=== PATIENT | female | born 1945 | race Caucasian/White ===

== ENCOUNTER → 2017-09-03 13:16 | Outpatient (CLI) | payer MEDICARE, MEDICAID, SELFPAY ==
[2017-09-03 14:20] LABS: Absolute Lymphocyte Count 1.74 X10^3/ul (0.83-4.51); Absolute Neutrophil Count 4.2 X10^3/uL (2.0-7.7); Basophil# 0.03 X10^3/uL; Basophil% 0.4 % (0-1); Eosinophil# 0.33 X10^3/uL; Eosinophils% 4.6 % (0-5); Hematocrit 44.2 % (37-47); Hemoglobin 13.9 g/dl (12.0-15.0); Lymphocyte # 1.74 X10^3/ul (4.0); Lymphocyte % 24.2 % (19-41); Mean Corp Hgb Conc 31.4 g/gl (32-36); Mean Corpuscular Hgb 28.3 pg (27.0-32.0); Mean Corpuscular Volume 89.8 fL (81-99); Mean Platelet Vol. 11.7 fl (6.2-12.0); Monocyte# 0.88 X10^3/uL; Monocyte% 12.2 % (0-10); Neutrophil # 4.18 X10^3/uL (2.7-7.7); Neutrophil % 58.2 % (47-70); POSITIVE COUNT NO; POSITIVE DIFFERENTIAL NO; POSITIVE MORPHOLOGY NO; Platelet Count 243 K/mm3 (150-450); RBC Distribution Width CV 15.4 % (11.6-14.6); RBC Distribution Width SD 49.4 fl (35.1-43.9); Red Blood Count 4.92 M/mm3 (4.2-5.4); White Blood Count 7.2 K/mm3 (4.4-11.0)
[2017-09-03 14:34] LABS: AST(SGOT) 35 U/L (15-37); Alanine Aminotransfer ALT/SGPT 36 U/L (12-78); Albumin, Serum 3.5 g/dL (3.4-5.0); Alkaline Phosphatase 110 U/L (45-117); Anion Gap 7 (5-15); BUN 30 mg/dL (7-18); BUN/Creat Ratio 34.1 RATIO (10-20); Calcium,Total 9.2 mg/dL (8.5-10.1); Chloride 108 mmol/L (98-107); Creatinine, Serum 0.88 mg/dL (0.55-1.02); EST Glomerular Filtration Rate 67 mL/min (>60); Est Glom Filt Rate - Afr Amer 81 mL/min (>60); Globulin 3.4 g/dL (2.2-4.2); Glucose 72 mg/dL (70-110); Potassium 4.5 mmol/L (3.5-5.1); Protein, Total 6.9 g/dL (6.4-8.2); Sodium Level 146 mmol/L (136-145)
[2017-09-04 09:39] LABS: Vitamin D,25 Hydroxy 19.7 ng/mL
== END ==
PROVIDERS: Family Provider Family Medicine Geriatric Medicine; PCP Family Medicine Geriatric Medicine; Visit Provider Family Medicine Geriatric Medicine
DX: R53.83 Other fatigue (principal)
CPT/HCPCS: 36415; 80053; 82306; 84443; 85025

== ENCOUNTER → 2017-11-14 13:20 | Outpatient (CLI) | payer MEDICARE, MEDICAID, SELFPAY ==
--- NOTE | 2017-11-14 13:24 | RAD_ITS ---
STUDY: X-RAY - ABDOMEN/PELVIS REASON FOR EXAM: Female, 72 years old. Abdominal pain and diarrhea. TECHNIQUE: AP supine and upright views of the abdomen and pelvis. COMPARISON: None. FINDINGS: Elevated left diaphragm. Substantial gaseous distention of the stomach. Nondistended small bowel. Diffuse nonspecific increase in colonic bowel gas to the level of the rectum. No substantial stool. Negative for gross organomegaly. Status post cholecystectomy. Normal soft tissue structures. There are diffuse degenerative changes of the visualized lumbar spine. RAD/Abd Inc Decub and/or Erect IMPRESSION: Air distended stomach. Nondistended small bowel. Diffuse gassy colon to the level of the rectum without visible stool. Findings are consistent with diarrhea but do not suggest a specific etiology. Negative for evidence of bowel perforation. Elevation of left diaphragm. Status post cholecystectomy. Electronically Signed: Summer Benton MD at 21:29 EST , Service support ,
== END ==
PROVIDERS: Family Provider Family Medicine Geriatric Medicine; PCP Family Medicine Geriatric Medicine; Visit Provider Family Medicine Geriatric Medicine
DX: R50.9 Fever, unspecified (principal)
CPT/HCPCS: 74019; 87633

== ENCOUNTER → 2017-11-18 09:19 | Outpatient (CLI) | payer MEDICARE, MEDICAID, SELFPAY ==
[2017-11-18 09:27] LABS: Bacteria 0 SEEN /hpf (None Seen); Mucous, Urine 0 SEEN /hpf (<or=2+); Red Blood Cells-Urine 0 SEEN /hpf (0-5); White Blood Cells 0 SEEN /hpf (0-5)
[2017-11-18 09:38] LABS: Color, Urine Yellow (Yellow); Glucose, Dipstick Normal (Normal); Ketone-Dipstick Negative (Negative); Leukocyte Esterase-Dipstick Negative /ul (Negative); Nitrite-Dipstick Negative (Negative); Occult Blood-Urine Negative /ul (Negative); Protein-Dipstick Negative (Negative); Urine Bilirubin Dipstick Negative (Negative); Urine Clarity Clear (Clear); Urine Urobilinogen Normal (Normal)
[2017-11-18 09:44] LABS: Squamous Epithelial Cells - UA 0-5 SEEN /hpf (5-10)
== END ==
LOC: LAB 09:21 → LABSPEC 09:24
PROVIDERS: Family Provider Family Medicine Geriatric Medicine; PCP Family Medicine Geriatric Medicine; Visit Provider Family Medicine Geriatric Medicine
DX: N39.0 Urinary tract infection, site not specified (principal)
CPT/HCPCS: 81001; 87086; 87088

== ENCOUNTER → 2017-11-30 11:03 | Outpatient (CLI) | payer MEDICARE, MEDICAID, SELFPAY | PROVIDERS: Family Provider Family Medicine Geriatric Medicine; PCP Family Medicine Geriatric Medicine; Visit Provider Family Medicine Geriatric Medicine | DX: R19.7 Diarrhea, unspecified (principal) | CPT/HCPCS: 82274; 83630; 87177; 87209; 87493; 87506 ==

== ENCOUNTER → 2018-02-21 10:43 | Outpatient (CLI) | payer MEDICARE, MEDICAID, SELFPAY ==
--- NOTE | 2018-02-21 11:05 | RAD_ITS ---
STUDY: X-RAY - ABDOMEN/PELVIS REASON FOR EXAM: Female, 72 years old. Diarrhea for 3 weeks. TECHNIQUE: AP supine and upright views of the abdomen and pelvis. COMPARISON: 11/14/2017 FINDINGS: Gas-filled bowel loops are again seen throughout the abdomen and pelvis. There is no evidence of bowel obstruction. There is no demonstrated free abdominal air. Persistently evaluated left hemidiaphragm. Cholecystectomy clips are seen in the right upper quadrant. Normal soft tissue structures. There are diffuse degenerative changes of the visualized lumbar spine. Bilateral degenerative hip arthrosis. RAD/Abd Inc Decub and/or Erect IMPRESSION: Gas-filled bowel loops seen throughout the abdomen/pelvis, compatible with mild adynamic ileus/diarrheal disease. Nonobstructive bowel gas pattern. Electronically Signed: Socrates Palm MD at 10:13 EDT Tel , Service support ,
== END ==
PROVIDERS: Family Provider Family Medicine Geriatric Medicine; PCP Family Medicine Geriatric Medicine; Visit Provider Family Medicine Geriatric Medicine
DX: R19.7 Diarrhea, unspecified (principal)
CPT/HCPCS: 74019

== ENCOUNTER → 2018-03-05 10:02 | Outpatient (CLI) | payer MEDICARE, MEDICAID, SELFPAY ==
[2018-03-05 11:22] LABS: Absolute Lymphocyte Count 1.94 X10^3/ul (0.83-4.51); Absolute Neutrophil Count 3.7 X10^3/uL (2.0-7.7); Basophil# 0.03 X10^3/uL; Basophil% 0.4 % (0-1); Eosinophil# 0.32 X10^3/uL; Eosinophils% 4.7 % (0-5); Hematocrit 42.1 % (37-47); Hemoglobin 13.2 g/dl (12.0-15.0); Lymphocyte # 1.94 X10^3/ul (4.0); Lymphocyte % 28.2 % (19-41); Mean Corp Hgb Conc 31.4 g/gl (32-36); Mean Corpuscular Hgb 29.3 pg (27.0-32.0); Mean Corpuscular Volume 93.6 fL (81-99); Mean Platelet Vol. 11.2 fl (6.2-12.0); Monocyte# 0.87 X10^3/uL; Monocyte% 12.6 % (0-10); Neutrophil % 53.8 % (47-70); Platelet Count 238 K/mm3 (150-450); RBC Distribution Width CV 14.2 % (11.6-14.6); RBC Distribution Width SD 46.6 fl (35.1-43.9); White Blood Count 6.9 K/mm3 (4.4-11.0)
[2018-03-05 11:39] LABS: POSITIVE COUNT NO; POSITIVE DIFFERENTIAL NO; POSITIVE MORPHOLOGY NO
[2018-03-05 11:41] LABS: Vitamin D,25 Hydroxy 18.6 ng/mL (29.95-100.01)
[2018-03-05 11:50] LABS: ALB/GLOB Ratio 1.1 RATIO (0.9-2.4); AST(SGOT) 22 U/L (15-37); Alanine Aminotransfer ALT/SGPT 34 U/L (13-56); Albumin, Serum 3.4 g/dL (3.2-5.0); Alkaline Phosphatase 75 U/L (45-117); Anion Gap 7 (5-15); BUN 22 mg/dL (7-18); BUN/Creat Ratio 27.8 RATIO (10-20); Calcium,Total 8.7 mg/dL (8.5-10.1); Chloride 108 mmol/L (98-107); Creatinine, Serum 0.79 mg/dL (0.55-1.02); EST Glomerular Filtration Rate 76 mL/min (>60); Est Glom Filt Rate - Afr Amer 92 mL/min (>60); Globulin 3.2 g/dL (2.2-4.2); Glucose 76 mg/dL (74-106); Potassium 4.6 mmol/L (3.5-5.1); Protein, Total 6.6 g/dL (6.4-8.2); Sodium Level 146 mmol/L (136-145); Thyroid Stim Hormone (TSH) 0.47 uIU/mL (0.358-3.74)
[2018-03-07 07:13] LABS: Hep C Antibodies <0.1 s/co ratio (0.0-0.9)
== END ==
PROVIDERS: Family Provider Family Medicine Geriatric Medicine; PCP Family Medicine Geriatric Medicine; Visit Provider Family Medicine Geriatric Medicine
DX: E55.9 Vitamin D deficiency, unspecified (principal); R53.83 Other fatigue; Z13.89 Encounter for screening for other disorder
CPT/HCPCS: 36415; 80053; 82306; 84443; 85025; 86803

== ENCOUNTER → 2018-06-10 14:11 | Outpatient (CLI) | payer MEDICARE, MEDICAID, SELFPAY ==
[2018-06-10 15:04] LABS: Absolute Lymphocyte Count 2.34 X10^3/ul (0.83-4.51); Absolute Neutrophil Count 3.5 X10^3/uL (2.0-7.7); Basophil# 0.06 X10^3/uL; Basophil% 0.8 % (0-1); Eosinophil# 0.48 X10^3/uL; Eosinophils% 6.4 % (0-5); Hematocrit 43.8 % (37-47); Hemoglobin 13.5 g/dl (12.0-15.0); Lymphocyte # 2.34 X10^3/ul (4.0); Mean Corp Hgb Conc 30.8 g/gl (32-36); Mean Corpuscular Hgb 28.8 pg (27.0-32.0); Mean Corpuscular Volume 93.4 fL (81-99); Monocyte# 1.16 X10^3/uL; Monocyte% 15.4 % (0-10); Neutrophil % 46.3 % (47-70); Platelet Count 277 K/mm3 (150-450); RBC Distribution Width CV 14.2 % (11.6-14.6); RBC Distribution Width SD 47.8 fl (35.1-43.9); Red Blood Count 4.69 M/mm3 (4.2-5.4); White Blood Count 7.6 K/mm3 (4.4-11.0)
[2018-06-10 15:05] LABS: POSITIVE COUNT NO; POSITIVE DIFFERENTIAL NO; POSITIVE MORPHOLOGY NO
[2018-06-10 15:13] LABS: ALB/GLOB Ratio 1.1 RATIO (0.9-2.4); AST(SGOT) 20 U/L (15-37); Alanine Aminotransfer ALT/SGPT 22 U/L (13-56); Albumin, Serum 3.6 g/dL (3.2-5.0); Alkaline Phosphatase 95 U/L (45-117); Anion Gap 5 (5-15); BUN 22 mg/dL (7-18); BUN/Creat Ratio 24.4 RATIO (10-20); Chloride 108 mmol/L (98-107); EST Glomerular Filtration Rate 65 mL/min (>60); Est Glom Filt Rate - Afr Amer 79 mL/min (>60); Globulin 3.2 g/dL (2.2-4.2); Glucose 76 mg/dL (74-106); Potassium 4.1 mmol/L (3.5-5.1); Protein, Total 6.8 g/dL (6.4-8.2); Sodium Level 144 mmol/L (136-145)
--- NOTE | 2018-06-10 16:52 | CT_ITS ---
STUDY: CT ABDOMEN AND PELVIS WITH CONTRAST REASON FOR EXAM: Female, 72 years old. Abdominal pain, rectal bleeding RADIATION DOSAGE (If Supplied By Facility): CTDIvol = ( 14.71 ) mGy, DLP = ( 684.37 ) mGycm TECHNIQUE: Transaxial images were obtained from the dome of the diaphragm to the symphysis pubis without oral contrast. 100CC ml of Isovue 300 contrast was administered. Sagittal and coronal images were reconstructed. Individualized dose optimization techniques were used for this CT. COMPARISON: None. FINDINGS: Calcified granuloma in the right lung base. The visualized portions of the heart are within normal limits. Normal liver. Status post cholecystectomy. Mild dilatation of the extrahepatic biliary system. Normal spleen. Normal pancreas. Normal bilateral adrenal glands. Normal right kidney. Normal left kidney. Distend stomach with air-fluid level. Normal small intestine. Fecal distended rectum. The appendix is not visualized. Normal abdominal aorta. Normal inferior vena cava. Normal retroperitoneum. Normal urinary bladder. Normal abdominal wall. Degenerative vertebral changes. CT/Abdomen/Pelvis WITH Contrast IMPRESSION: Distended stomach with air-fluid level. Fecal distended rectum. Electronically Signed: Terry Tellez DO at 21:39 EDT Tel [phone], Service support ,
== END ==
PROVIDERS: Family Provider Family Medicine Geriatric Medicine; PCP Family Medicine Geriatric Medicine; Visit Provider Family Medicine Geriatric Medicine
DX: R10.9 Unspecified abdominal pain (principal); R50.9 Fever, unspecified
CPT/HCPCS: 36415; 74177; 80053; 85025; 87633; Q9967

== ENCOUNTER → 2018-06-11 12:14 | Outpatient (CLI) | payer MEDICARE, MEDICAID, SELFPAY | PROVIDERS: Family Provider Family Medicine Geriatric Medicine; PCP Family Medicine Geriatric Medicine; Visit Provider Family Medicine Geriatric Medicine | DX: R19.7 Diarrhea, unspecified (principal) | CPT/HCPCS: 82274; 83630; 87177; 87209; 87493; 87506 ==

== ENCOUNTER 2018-07-18 21:46 | Emergency (ER) | payer MEDICARE, MEDICAID, SELFPAY ==
[2018-07-18 21:48] VITALS: BP 110/76; PULSE 82; RESP 18; TEMP 36.7; O2SAT 94; O2SAT 97; BMI 23.2
--- NOTE | 2018-07-18 22:18 | RAD_ITS ---
STUDY: X-RAY CHEST REASON FOR EXAM: Female, 73 years old. Hypertension. Lethargy. TECHNIQUE: PA and lateral views of the chest. COMPARISON: August 24, 2016. FINDINGS: Telemetry wires overlie the chest. There is persistent elevation left hemidiaphragm with left basilar atelectasis. There is no new mass or infiltrate in the lungs There is no demonstrated pleural abnormality. Normal size heart. Normal mediastinum and ester. Normal visualized pulmonary arteries. Normal visualized aortic arch and descending thoracic aorta. There are diffuse degenerative changes of the visualized thoracic spine. There is degenerative osteoarthritis of the bilateral shoulders. There is air in loops of small bowel and colon beneath the diaphragms. RAD/Chest PA and Lateral IMPRESSION: No acute cardiopulmonary disease or major interval change. Electronically Signed: Rodney Mosley DO at 22:45 EDT Tel [phone], Service support ,
[2018-07-18 22:25] LABS: Absolute Lymphocyte Count 1.37 X10^3/ul (0.83-4.51); Absolute Neutrophil Count 11.4 X10^3/uL (2.0-7.7); Basophil# 0.03 X10^3/uL; Basophil% 0.2 % (0-1); Differential Indicated SCAN CRITERIA MET; Eosinophil# 0.29 X10^3/uL; Eosinophils% 1.9 % (0-5); Hematocrit 35.5 % (37-47); Hemoglobin 10.8 g/dl (12.0-15.0); Lymphocyte # 1.37 X10^3/ul (4.0); Lymphocyte % 9.1 % (19-41); Mean Corp Hgb Conc 30.4 g/gl (32-36); Mean Corpuscular Hgb 28.7 pg (27.0-32.0); Mean Corpuscular Volume 94.4 fL (81-99); Mean Platelet Vol. 10.6 fl (6.2-12.0); Monocyte# 1.84 X10^3/uL; Monocyte% 12.3 % (0-10); Neutrophil # 11.44 X10^3/uL (2.7-7.7); Neutrophil % 76.4 % (47-70); POSITIVE COUNT NO; POSITIVE DIFFERENTIAL YES; POSITIVE MORPHOLOGY NO; Platelet Count 202 K/mm3 (150-450); RBC Distribution Width CV 14.3 % (11.6-14.6); RBC Distribution Width SD 48.8 fl (35.1-43.9); Red Blood Count 3.76 M/mm3 (4.2-5.4)
[2018-07-18 22:43] LABS: Anion Gap 4 (5-15); BUN 35 mg/dL (7-18); BUN/Creat Ratio 32.4 RATIO (10-20); Calcium,Total 8.9 mg/dL (8.5-10.1); Chloride 111 mmol/L (98-107); Creatinine, Serum 1.08 mg/dL (0.55-1.02); EST Glomerular Filtration Rate 53 mL/min (>60); Est Glom Filt Rate - Afr Amer 64 mL/min (>60); Estimated Creatinine Clearance 33.82 ml/min; Glucose 113 mg/dL (74-106); Sodium Level 146 mmol/L (136-145)
[2018-07-18 23:12] LABS: Anisocytosis RARE; Macrocytosis RARE; Platelet Estimate ADEQUATE (ADEQ)
--- NOTE | 2018-07-18 23:40 | ED.VISSUMM ---
- ER Visit Summary Date of Service: 07/18/18 Chief Complaint: Low blood pressure at nursing facility History of Present Illness: The patient is a 73 F who is not a good informant secondary to the cerebral palsy and cognitive impairment was sent to the emergency department for low blood pressure. Systolic in the 80s. Normal blood pressure is 102-110 systolic. She reports cough and abdominal pain. Caregiver states she has had abdominal pain and reason for EGD. Caregiver informed me that EGD was positive for ulcers. The caregiver informed the nursing staff that she had black stool. When I inquired regarding black or maroon stool the response was negative. Past medical history of hypothyroidism, depression and cerebral palsy with cognitive impairment Physical Examination: Vital signs normal for patient. Blood pressure 110/76. She is not febrile. Head is atraumatic no cephalic. Pupils equal round reactive. Extra muscle intact. Sclerae anicteric. Conjunctive is pink. TMs normal. Mucosa slightly dry. Trachea midline. No cervical lymphadenopathy. No carotid bruit. Heart regular without murmur, gallop or rub. Lungs are clear to auscultation. Abdomen soft with epigastric discomfort. Negative Peter sign. There is no guarding or rebound tenderness. Rectal exam is remarkable for external hemorrhoid with no active bleeding. Stool is dark green to black. It is not melena. 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 Test Results: H&H 10.8 35.5. Approximately 2 months ago hemoglobin was 13.5. BUN to creatinine ratio is slightly elevated. Stool is Hemoccult negative. Emergency Department Course and Treatment: IV fluids. Workup for anemia, basic minimal panel was obtained to assess BUN to creatinine ratio because of concern for GI bleed. Treatment Plan: Follow-up with PCP as outpatient Disposition: Discharged to nursing facility Impression: 1. Transient hypotension 2. Epigastric pain secondary to recently diagnosed ulcer 3. Anemia secondary to recent GI bleed 4. Prerenal azotemia/dehydration This note was generated with [email or web address] dictation software. It may contain incorrect words, spelling, and punctuation that were not noted in review of the chart prior to signing ED Disposition - Plan for ED Patient: Disposition: Home or Assisted Living Chief Complaint: Hypotension Instructions: ED PUD, ED Dehydration Referrals: Giovany Peacock Chi, MD [Primary Care Provider] - 3-5 Days
[2018-07-19 00:20] VITALS: BP 122/69; PULSE 80; RESP 18; O2SAT 94
--- NOTE | 2018-07-19 00:23 | ED.RN ---
discharge instructions reviewed with caregiver, denies questions. Pt assisted into wheelchair, wheeled out to car of caregiver.
[2018-07-21 15:15] LABS: Pathologist Review Reviewed
== END 2018-07-19 00:25 | disposition home or self-care (01) ==
PROVIDERS: Emergency Provider Emergency Medicine; Family Provider Family Medicine Geriatric Medicine; PCP Family Medicine Geriatric Medicine
DX: I95.9 Hypotension, unspecified (principal); R10.13 Epigastric pain; K27.9 Peptic ulcer, site unspecified, unspecified as acute or chronic, without hemorrhage or perforation; D64.9 Anemia, unspecified; Z87.19 Personal history of other diseases of the digestive system; R79.89 Other specified abnormal findings of blood chemistry; E86.0 Dehydration; E87.0 Hyperosmolality and hypernatremia; K64.4 Residual hemorrhoidal skin tags; R05 Cough; G80.1 Spastic diplegic cerebral palsy; G31.84 Mild cognitive impairment of uncertain or unknown etiology; E03.9 Hypothyroidism, unspecified; F32.9 Major depressive disorder, single episode, unspecified; Z79.82 Long term (current) use of aspirin; Z79.899 Other long term (current) drug therapy
CPT/HCPCS: 71046; 80048; 82274; 85025; 99285; J7030; J7040; A4216

== ENCOUNTER → 2018-08-05 12:05 | Outpatient (CLI) | payer MEDICARE, MEDICAID, SELFPAY ==
[2018-08-05 12:42] LABS: Absolute Lymphocyte Count 1.96 X10^3/ul (0.83-4.51); Absolute Neutrophil Count 3.9 X10^3/uL (2.0-7.7); Basophil# 0.05 X10^3/uL; Basophil% 0.7 % (0-1); Eosinophil# 0.67 X10^3/uL; Eosinophils% 8.9 % (0-5); Hematocrit 35.5 % (37-47); Hemoglobin 10.8 g/dl (12.0-15.0); Lymphocyte # 1.96 X10^3/ul (4.0); Lymphocyte % 26.1 % (19-41); Mean Corp Hgb Conc 30.4 g/gl (32-36); Mean Corpuscular Volume 95.2 fL (81-99); Monocyte# 0.97 X10^3/uL; Monocyte% 12.9 % (0-10); Neutrophil # 3.85 X10^3/uL (2.7-7.7); Neutrophil % 51.3 % (47-70); Platelet Count 302 K/mm3 (150-450); RBC Distribution Width CV 14.7 % (11.6-14.6); RBC Distribution Width SD 48.9 fl (35.1-43.9); Red Blood Count 3.73 M/mm3 (4.2-5.4); White Blood Count 7.5 K/mm3 (4.4-11.0)
[2018-08-05 12:46] LABS: POSITIVE COUNT NO; POSITIVE DIFFERENTIAL NO; POSITIVE MORPHOLOGY NO
[2018-08-05 13:21] LABS: Anion Gap 7 (5-15); BUN 27 mg/dL (7-18); Calcium,Total 9.1 mg/dL (8.5-10.1); Chloride 105 mmol/L (98-107); Creatinine, Serum 0.96 mg/dL (0.55-1.02); EST Glomerular Filtration Rate 61 mL/min (>60); Est Glom Filt Rate - Afr Amer 73 mL/min (>60); Glucose 72 mg/dL (74-106); Potassium 4.7 mmol/L (3.5-5.1); Sodium Level 142 mmol/L (136-145)
== END ==
PROVIDERS: Family Provider Family Medicine Geriatric Medicine; Visit Provider Family Medicine Geriatric Medicine
DX: R53.83 Other fatigue (principal)
CPT/HCPCS: 36415; 80048; 85025

== ENCOUNTER → 2018-09-03 14:22 | Outpatient (CLI) | payer MEDICARE, MEDICAID, SELFPAY ==
[2018-09-03 15:56] LABS: Absolute Lymphocyte Count 2.14 X10^3/ul (0.83-4.51); Absolute Neutrophil Count 6.9 X10^3/uL (2.0-7.7); Basophil# 0.04 X10^3/uL; Basophil% 0.4 % (0-1); Eosinophil# 0.42 X10^3/uL; Eosinophils% 4.1 % (0-5); Hematocrit 36.1 % (37-47); Hemoglobin 10.8 g/dl (12.0-15.0); Lymphocyte # 2.14 X10^3/ul (4.0); Lymphocyte % 20.7 % (19-41); Mean Corp Hgb Conc 29.9 g/gl (32-36); Mean Corpuscular Hgb 27.8 pg (27.0-32.0); Monocyte% 8.7 % (0-10); Neutrophil # 6.85 X10^3/uL (2.7-7.7); Platelet Count 302 K/mm3 (150-450); RBC Distribution Width SD 47.6 fl (35.1-43.9); Red Blood Count 3.88 M/mm3 (4.2-5.4); White Blood Count 10.4 K/mm3 (4.4-11.0)
[2018-09-03 16:14] LABS: POSITIVE COUNT NO; POSITIVE DIFFERENTIAL NO; POSITIVE MORPHOLOGY NO
[2018-09-03 16:18] LABS: Vitamin D,25 Hydroxy 40.5 ng/mL (29.95-100.01)
[2018-09-03 16:40] LABS: ALB/GLOB Ratio 1.1 RATIO (0.9-2.4); AST(SGOT) 83 U/L (15-37); Alanine Aminotransfer ALT/SGPT 200 U/L (13-56); Albumin, Serum 3.4 g/dL (3.2-5.0); Alkaline Phosphatase 213 U/L (45-117); Anion Gap 7 (5-15); BUN 27 mg/dL (7-18); Calcium,Total 8.7 mg/dL (8.5-10.1); Chloride 105 mmol/L (98-107); Creatinine, Serum 1.08 mg/dL (0.55-1.02); EST Glomerular Filtration Rate 53 mL/min (>60); Est Glom Filt Rate - Afr Amer 64 mL/min (>60); Globulin 3.2 g/dL (2.2-4.2); Glucose 72 mg/dL (74-106); Potassium 3.8 mmol/L (3.5-5.1); Protein, Total 6.6 g/dL (6.4-8.2); Sodium Level 142 mmol/L (136-145); Thyroid Stim Hormone (TSH) 0.23 uIU/mL (0.358-3.74)
[2018-09-04 10:44] LABS: T3 Uptake 41 % (30-39); T4 Free Direct 1.75 ng/dL (0.76-1.46)
--- OUTSIDE RECORDS SUMMARY | 2018-10-20 19:14 | XMS RPT_ITS ---
:1945 Author Organization OHIP Care Team Providers Name Role Phone Ayush, Giovany Chi Attending Unavailable Ayush, Giovany Chi Primary Care Unavailable Ayush, Giovany Chi Attending Unavailable Ayush, Giovany Chi Referring Unavailable Ayush, Giovany Chi Primary Care Unavailable Ayush, Giovany Chi Attending Unavailable Ayush, Giovany Chi Referring Unavailable Ayush, Giovany Chi Primary Care Unavailable Nurse, Surgery Attending Unavailable Ayush, Giovany Chi Referring Unavailable Ayush, Giovany Chi Attending Unavailable Ayush, Giovany Chi Referring Unavailable Ayush, Giovany Chi Primary Care Unavailable Ayush, Giovany Chi Attending Unavailable Ayush, Giovany Chi Primary Care Unavailable Ayush, Giovany Chi Attending Unavailable Ayush, Giovany Chi Primary Care Unavailable Ayush, Giovany Chi Primary Care Unavailable Gill, Jaswant Attending Unavailable Ayush, Giovany Chi Attending Unavailable Ayush, Giovany Chi Primary Care Unavailable Ayush, Giovany Chi Attending Unavailable Ayush, Giovany Chi Primary Care Unavailable Ayush, Giovany Chi Referring Unavailable Ayush, Giovany Chi Attending Unavailable Ayush, Giovany Chi Primary Care Unavailable Ayush, Giovany Chi Attending Unavailable Ayush, Giovany Chi Primary Care Unavailable DIONICIO ANGUIANO Referring Unavailable DIONICIO ANGUIANO Admitting Unavailable DIONICIO ANGUIANO Attending Unavailable David Roblero Attending Unavailable David Roblero Attending Unavailable PROBLEMS PROBLEMS DATE TYPE CONDITION / CODE ATTENDING STATUS SOURCE 09/01/2018 Admitting Unknown / [place], Active [facility] Medical diagnosis UNK(Unknown) David Hudd[place] [facility] Repository 07/15/2018 Active Abnormal findings DIONICIO ANGUIANO Active [facility] on diagnostic Clinic Other imaging of other [place] parts of digestive Repository tract / R93.3(ICD-10) 07/14/2018 Active Cerebral palsy, NA Active [facility] unspecified / Clinic Other G80.9(ICD-10) [place] Repository 07/14/2018 Active Essential (primary) NA Active [facility] hypertension / Clinic Other I10(ICD-10) [place] Repository 04/23/2007 Active Gastro-esophageal NA Active [facility] reflux disease Clinic Other without esophagitis [place] / K21.9(ICD-10) Repository 07/14/2018 Active Encounter for other NA Active [facility] preprocedural Clinic Other examination / [place] Z01.818(ICD-10) Repository 06/11/2018 Unknown R19.7 - Diarrhea, Ayush, Giovany Chi Active [facility] unspecified / Community R19.7(ICD-10) Hospital Repository 06/11/2018 Unknown R10.9 - Unspecified Ayush, Giovany Chi Active [place] abdominal pain / Community R10.9(ICD-10) Hospital Repository 03/25/2018 Unknown Z12.31 - Encounter Ayush, Giovany Chi Active [facility] for screening Community mammogram for Hospital malignant neoplasm Repository of breast / Z12.31(ICD-10) 03/05/2018 Unknown E55.9 - Vitamin D Ayush, Giovany Chi Active [facility] deficiency, Community unspecified / Hospital E55.9(ICD-10) Repository 03/05/2018 Unknown R53.83 - Other Ayush, Giovany Chi Active [place] fatigue / Community R53.83(ICD-10) Hospital Repository 03/05/2018 Unknown Z13.89 - Encounter AyushGiovany juarez Chi Active [facility] for screening for Community other disorder / Hospital Z13.89(ICD-10) Repository 11/18/2017 Unknown N39.0 - Urinary AyushGiovany juarez Chi Active [place] tract infection, Community site not specified Hospital / N39.0(ICD-10) Repository PROCEDURES PROCEDURES No Procedure Records FoundRESULTS RESULTS CBC W/DIFF, AUTOMATED Collected: 09/03/2018 Status: F Source: [place] 2:23 PM [facility] REPOS[facility] TYPE CODE TESTS RESULT OUT OF RANGE REFERENCE UNITS LAB L100.1000 4.4-11.0 K/mm3 Normal WBC 10.4 LAB L100.1200 4.2-5.4 M/mm3 Low RBC 3.88 LAB L100.1300 12.0-15.0 g/dl Low HGB 10.8 LAB L100.1400 37-47 % Low HCT 36.1 LAB L100.1500 81-99 fL Normal MCV 93.0 LAB L100.1600 27.0-32.0 pg Normal MCH 27.8 LAB L100.1700 32-36 g/gl Low MCHC 29.9 LAB L100.1810 11.6-14.6 % Normal RDW CV 14.0 LAB L100.1820 35.1-43.9 fl High RDW SD 47.6 LAB L100.1900 150-450 K/mm3 Normal PLT 302 LAB L100.2000 6.2-12.0 fl Normal MPV 11.0 LAB L100.2100 47-70 % Normal NEUT% 66.0 LAB L100.2200 19-41 % Normal LY% 20.7 LAB L100.2300 0-10 % Normal MONO% 8.7 LAB L100.2400 0-5 % Normal EO% 4.1 LAB L100.2500 0-1 % Normal BASO% 0.4 LAB L100.2550 0.0-0.9 % Normal IM GRAN % 0.100 Result Comment: IG% - Immature Granulocytes (promyelocytes, myelocytes and metamyelocytes) > 1% indicates that a LEFT SHIFT is Present. LAB L100.2620 2.0-7.7 X10 3/uL Normal Absolute Neut 6.9 LAB L100.2720 0.83-4.51 X10 3/ul Normal Absolute Lymph 2.14 Performed By: #### L100.0100 #### [facility] [address] [place], [address] VITAMIN D,25 HYDROXY Collected: 09/03/2018 Status: F Source: [place] 2:23 PM [facility] [place] TYPE CODE TESTS RESULT OUT OF RANGE REFERENCE UNITS LAB L506.1000 29.95-100.01 ng/mL Normal Vitamin D 40.5 25-OH Result Comment: Vitamin D 25(OH) Status Range Deficiency <20 ng/mL (50nmol/L) Insuffciency 20 - 30 ng/mL (50 - 75 nmol/L) Sufficiency 30 - 100 ng/mL (75 - 250 nmol/L) Toxicity >100 ng/mL (>250 nmol/L) Performed By: #### L506.1000 #### [facility] [address] [facility] [place], [address] COMPREHENSIVE METABOLIC Collected: 09/03/2018 Status: F Source: [facility] 2:23 PM [facility] [place] Order Comment: DR SANDOVAL ADDED [id number] FT4 TYPE CODE TESTS RESULT OUT OF RANGE REFERENCE UNITS LAB L501.0100 74-106 mg/dL Low GLU 72 Result Comment: Please note revised GLUCOSE reference range effective 2017. LAB L501.1000 7-18 mg/dL High BUN 27 LAB L501.1100 0.55-1.02 mg/dL High CREAT,SERUM 1.08 Result Comment: The validity of the calculated GFR AND GFRAA in patients over 70 years has not been determined. Clinical correlation is essential. LAB L501.1110 >60 mL/min Low EST GFR 53 Result Comment: Non- GFR Calc LAB L501.1115 >60 mL/min Normal EST GFR - AA 64 Result Comment: GFR Calc LAB L501.1300 10-20 RATIO High BUN/CRE 25.0 LAB L501.1500 6.4-8.2 g/dL T Normal PROT 6.6 LAB L501.1800 3.2-5.0 g/dL Normal ALB 3.4 LAB L501.1950 2.2-4.2 g/dL Normal GLOB 3.2 LAB L501.2000 0.9-2.4 RATIO Normal A/G 1.1 LAB L501.2200 8.5-10.1 mg/dL CA Normal 8.7 LAB L501.4100 15-37 U/L High AST 83 LAB L501.4305 45-117 U/L High ALK P 213 LAB L501.4405 13-56 U/L High ALT 200 LAB L501.4600 0.20-1.00 mg/dL T Normal BILI 0.50 LAB L501.5300 136-145 mmol/L NA Normal 142 LAB L501.5600 3.5-5.1 mmol/L K Normal 3.8 LAB L501.5900 98-107 mmol/L CL Normal 105 LAB L501.6100 21.0-32.0 mmol/L Normal CO2 30.0 LAB L501.6200 5-15 Normal GAP 7 Performed By: #### L500.4050, L501.9520, L501.9195, L506.0400 #### [facility] [address] [place], [place], [address] THYROID STIM HORMONE Collected: 09/03/2018 Status: F Source: [place] ([facility]) 2:23 PM [facility] [place] Order Comment: DR SANDOVAL ADDED [id number] FT4 TYPE CODE TESTS RESULT OUT OF RANGE REFERENCE UNITS LAB L501.9520 0.358-3.74 uIU/mL Low TSH 0.23 Performed By: #### L500.4050, L501.9520, L501.9195, L506.0400 #### [facility] [address] [place], [place], [address] T3 UPTAKE Collected: 09/03/2018 Status: F Source: [place] 2:23 PM [facility] [place] Order Comment: DR SANDOVAL ADDED [id number] FT4 TYPE CODE TESTS RESULT OUT OF RANGE REFERENCE UNITS LAB L501.9410 1.4-4.5 Test Normal T7 (FTI) not performed LAB L501.9210 30-39 % High 41 T3 UPTAKE Performed By: #### L500.4050, L501.9520, L501.9195, L506.0400 #### [facility] [address] [facility] [place], [address] T4 FREE DIRECT Collected: 09/03/2018 Status: F Source: [place] 2:23 PM [facility] [place] Order Comment: DR SANDOVAL ADDED [id number] FT4 TYPE CODE TESTS RESULT OUT OF REFERENCE UNITS RANGE LAB L506.0400 0.76-1.46 ng/dL High T4 FREE 1.75 DIRECT Performed By: #### L500.4050, L501.9520, L501.9195, L506.0400 #### [facility] [address] [facility] [place], [address] OR Observed: 09/01/2018 Status: UNK Source: [facility] 11:46 AM [facility] REPOSITORY DATE OF SERVICE: 09/01/2018 PREOPERATIVE DIAGNOSES: 1. Suspected dental caries. 2. Periodontal disease. POSTOPERATIVE DIAGNOSES: 1. Chronic generalized moderate periodontitis. 2. Dental caries. OPERATION: 1. Full mouth exam. Full mouth series radiographs. 2. Oral surgery, extracted numbers 8, 9 and 10. 3. Prophy and fluoride. SURGEONS: 1. David Roblero DMD, attending. 2. Nain Retana DDS, resident. BRASS POLISHER ANESTHESIOLOGIST: Deyvi Monge DO CIRCULATING NURSE: Jennifer; PRATEEK; Sayra; scrub nurse, Estrada. ANESTHESIA: General anesthesia via orotracheal intubation. PREOPERATIVE MEDICATION: None. ESTIMATED BLOOD LOSS: 20 mL. FLUIDS: 800 mL lactated Ringers. COMPLICATIONS: None. POSTOPERATIVE CONDITION: Stable. Patient extubated in operating room and taken to post-anesthesia care unit in good condition. INDICATIONS: It was deemed necessary for this patient to be seen in the hospital operating room due to patient's developmental disability and inability to cooperate for care in a traditional dental environment. DESCRIPTION OF OPERATION: The patient was taken to the operating room, then, prepped and draped in the usual [facility] fashion. Following the timeout procedure, orotracheal intubation for general anesthesia was achieved. Clinical and radiographic examinations were performed and interpreted. Generalized chronic moderate periodontitis. A small fibroma was noted on the lower left lip, 4 mm x 1.5 [facility]IENT NAME: SHADI GARDUNO [facility] Dr. Cifuentes MEDICAL REC #: [id number] [place] [address] ADMIT DATE: DISCHARGE DATE: OPERATIVE REPORT ATTENDING PHY: David Roblero DMD mm, and abrasion to the lower lip from sharp tooth was noted near tooth number 10. A treatment plan was generated. Following the sterile preparation by the surgical team and surgical site, a moist throat pack was placed at 1:32 p.m. and removed at 3:00 p.m. The oral cavity was then brushed with 0.17% chlorhexidine gluconate, Prophy with Cavitron and hand instrument, polished with Prophy Paste and applied fluoride. Local anesthesia was achieved using 3.4 mL of 2% lidocaine, 1:100,000 epinephrine via maxillary anterior infiltration. Teeth numbers 8, 9 and 10 were extracted using elevator and forceps. Hemostasis achieved. Gelfoam was packed in the socket and 3.0 Vicryl suture was placed. The oral cavity was lavaged and a throat pack was removed with cotton pliers. The patient was taken to the PACU in good condition and written postoperative instructions were given to the legal guardian. MEDICATIONS PRESCRIBED: 1. Denta 5000 at 51 g. 2. Motrin 600 mg, 20 tablets every 6 hours for pain. PATIENT RECOMMENDATIONS: Return in 1-2 years for followup recall. Nain Retana DDS, (R), dictating for ROSALINA Mcgrath/[id number] SSI File#: [id number] Verified/Reviewed by 09/04/18 0843 MECHELLE [facility] PATIENT NAME: SHADI GARDUNO Dr. Cifuentes MEDICAL REC #: [id number] [place] [address] ADMIT DATE: DISCHARGE DATE: OPERATIVE REPORT ATTENDING PHY: David Roblero DMD CBC W/DIFF, AUTOMATED Collected: 08/05/2018 Status: F Source: [place] 12:09 PM [facility] [place] TYPE CODE TESTS RESULT OUT OF RANGE REFERENCE UNITS LAB L100.1000 4.4-11.0 K/mm3 Normal WBC 7.5 LAB L100.1200 4.2-5.4 M/mm3 Low RBC 3.73 LAB L100.1300 12.0-15.0 g/dl Low HGB 10.8 LAB L100.1400 37-47 % Low HCT 35.5 LAB L100.1500 81-99 fL Normal MCV 95.2 LAB L100.1600 27.0-32.0 pg Normal MCH 29.0 LAB L100.1700 32-36 g/gl Low MCHC 30.4 LAB L100.1810 11.6-14.6 % High RDW CV 14.7 LAB L100.1820 35.1-43.9 fl High RDW SD 48.9 LAB L100.1900 150-450 K/mm3 Normal PLT 302 LAB L100.2000 6.2-12.0 fl Normal MPV 11.0 LAB L100.2100 47-70 % Normal NEUT% 51.3 LAB L100.2200 19-41 % Normal LY% 26.1 LAB L100.2300 0-10 % High MONO% 12.9 LAB L100.2400 0-5 % High EO% 8.9 LAB L100.2500 0-1 % Normal BASO% 0.7 LAB L100.2550 0.0-0.9 % Normal IM GRAN % 0.100 Result Comment: IG% - Immature Granulocytes (promyelocytes, myelocytes and metamyelocytes) > 1% indicates that a LEFT SHIFT is Present. LAB L100.2620 2.0-7.7 X10 3/uL Normal Absolute Neut 3.9 LAB L100.2720 0.83-4.51 X10 3/ul Normal Absolute Lymph 1.96 Performed By: #### L100.0100 #### [facility] [address] [place], [address] BASIC METABOLIC Collected: 08/05/2018 Status: F Source: [place] PROFILE (BMP) 12:09 PM [facility] [place] TYPE CODE TESTS RESULT OUT OF RANGE REFERENCE UNITS LAB L501.0100 74-106 mg/dL Low GLU 72 Result Comment: Please note revised GLUCOSE reference range effective 2017. LAB L501.1000 7-18 mg/dL High BUN 27 LAB L501.1100 0.55-1.02 mg/dL Normal CREAT,SERUM 0.96 Result Comment: The validity of the calculated GFR AND GFRAA in patients over 70 years has not been determined. Clinical correlation is essential. LAB L501.1110 >60 mL/min Normal EST GFR 61 Result Comment: Non- GFR Calc LAB L501.1115 >60 mL/min Normal EST GFR - AA 73 Result Comment: GFR Calc LAB L501.1300 10-20 RATIO High BUN/CRE 28.0 LAB L501.2200 8.5-10.1 mg/dL CA Normal 9.1 LAB L501.5300 136-145 mmol/L NA Normal 142 LAB L501.5600 3.5-5.1 mmol/L K Normal 4.7 LAB L501.5900 98-107 mmol/L CL Normal 105 LAB L501.6100 21.0-32.0 mmol/L Normal CO2 30.0 LAB L501.6200 5-15 Normal GAP 7 Performed By: #### L500.2500 #### [facility] [address] [place], [address] EMERGENCY DEPARTMENT Observed: 07/18/2018 Status: F Source: [place] SUMMARY 11:46 PM [facility] [place] [facility] Medical Records Department [address] [place] [address] Emergency Department Summary 07/18/18 2340 MR#: [id number] Acct: [id number] Name: SHADI GARDUNO Rep #: [id number] : 1945 73 From: Jaswant Gill MD PCP: Ayush CASTANO,Giovany Zimmerman Status: REG ER - ER Visit Summary Date of Service: 07/18/18 Chief Complaint: Low blood pressure at nursing facility History of Present Illness: The patient is a 73 F who is not a good informant secondary to the cerebral palsy and cognitive impairment was sent to the emergency department for low blood pressure. Systolic in the 80s. Normal blood pressure is 102-110 systolic. She reports cough and abdominal pain. Caregiver states she has had abdominal pain and reason for EGD. Caregiver informed me that EGD was positive for ulcers. The caregiver informed the nursing staff that she had black stool. When I inquired regarding black or maroon stool the response was negative. Past medical history of hypothyroidism, depression and cerebral palsy with cognitive impairment Physical Examination: Vital signs normal for patient. Blood pressure 110/76. She is not febrile. Head is atraumatic no cephalic. Pupils equal round reactive. Extra muscle intact. Sclerae anicteric. Conjunctive is pink. TMs normal. Mucosa slightly dry. Trachea midline. No cervical lymphadenopathy. No carotid bruit. Heart regular without murmur, gallop or rub. Lungs are clear to auscultation. Abdomen soft with epigastric discomfort. Negative Peter sign. There is no guarding or rebound tenderness. Rectal exam is remarkable for external hemorrhoid with no active bleeding. Stool is dark green to black. It is not melena. 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 Test Results: H AND H 10.8 35.5. Approximately 2 months ago hemoglobin was 13.5. BUN to creatinine ratio is slightly elevated. Stool is Hemoccult negative. Emergency Department Course and Treatment: IV fluids. Workup for anemia, basic minimal panel was obtained to assess BUN to creatinine ratio because of concern for GI bleed. Treatment Plan: Follow-up with PCP as outpatient Disposition: Discharged to nursing facility Impression: 1. Transient hypotension 2. Epigastric pain secondary to recently diagnosed ulcer 3. Anemia secondary to recent GI bleed 4. Prerenal azotemia/dehydration This note was generated with Denty'sation software. It may contain incorrect words, spelling, and punctuation that were not noted in review of the chart prior to signing ED Disposition - Plan for ED Patient: Disposition: Home or Assisted Living Chief Complaint: Hypotension Instructions: ED PUD, ED Dehydration Referrals: Giovany Sandoval Chi, MD [Primary Care Provider] - 3-5 Days What to do if you have Problems For any increased pain, shortness of breath, bleeding, nausea or vomiting, chest pain, or any unexpected problems, contact your Primary Care Provider. Call [facility] ([phone]) or report to the closest Emergency Room. Call 911 if necessary. 07/18/18 2346 <Electronically signed by Jaswant Gill MD> Date Jaswant Gill MD Cosigner Signature (If Indicated): Date CC: Giovany Sandoval MD Observed: 07/18/2018 Status: F Source: [place] STOOL OCCULT BLOOD 10:58 PM [facility] [place] [facility] RE[place] STOB iFOB Occult Blood Negative Performed By: #### M100.7900 #### [facility] [address] [place], [address] CBC W/DIFF, AUTOMATED Collected: 07/18/2018 Status: C Source: [place] 10:10 PM [facility] [place] TYPE CODE TESTS RESULT OUT OF RANGE REFERENCE UNITS LAB L100.1000 4.4-11.0 K/mm3 High WBC 15.0 LAB L100.1200 4.2-5.4 M/mm3 Low RBC 3.76 LAB L100.1300 12.0-15.0 g/dl Low HGB 10.8 LAB L100.1400 37-47 % Low HCT 35.5 LAB L100.1500 81-99 fL Normal MCV 94.4 LAB L100.1600 27.0-32.0 pg Normal MCH 28.7 LAB L100.1700 32-36 g/gl Low MCHC 30.4 LAB L100.1810 11.6-14.6 % Normal RDW CV 14.3 LAB L100.1820 35.1-43.9 fl High RDW SD 48.8 LAB L100.1900 150-450 K/mm3 Normal PLT 202 LAB L100.2000 6.2-12.0 fl Normal MPV 10.6 LAB L100.2100 47-70 % High NEUT% 76.4 LAB L100.2200 19-41 % Low LY% 9.1 LAB L100.2300 0-10 % High MONO% 12.3 LAB L100.2400 0-5 % Normal EO% 1.9 LAB L100.2500 0-1 % Normal BASO% 0.2 LAB L100.2550 0.0-0.9 % Normal IM GRAN % 0.100 Result Comment: IG% - Immature Granulocytes (promyelocytes, myelocytes and metamyelocytes) > 1% indicates that a LEFT SHIFT is Present. LAB L100.2620 2.0-7.7 X10 3/uL High Absolute Neut 11.4 LAB L100.2720 0.83-4.51 X10 3/ul Normal Absolute Lymph 1.37 LAB L100.4500 Normal SMEAR COMMENT SEE COMMENT Result Comment: MONOCYTOSIS NOTED LAB L100.5500 ADEQ PLT EST Normal ADEQUATE LAB L100.7300 ANISO RARE Normal LAB L100.7800 RARE Normal MACROCYTE LAB L100.9900 PATH REV Normal Reviewed Result Comment: Neutrophilic leukocytosis. Clinical correlation necessary. Lonnie Munoz M.D. 07/21/18 AMENDED REPORT 07/21/18 1515 PATH REV previously reported as: January shandra Performed By: #### L100.0100 #### [facility] [address], [address] BASIC METABOLIC Collected: 07/18/2018 Status: F Source: [place] PROFILE ([facility]) 10:10 PM [facility] [place] TYPE CODE TESTS RESULT OUT OF RANGE REFERENCE UNITS LAB L501.0100 74-106 mg/dL High GLU 113 Result Comment: Fasting Glucose result from 100 to 125 mg/dL suggests IMPAIRED HOMEOSTASIS per A.D.A. criteria. Please note revised GLUCOSE reference range effective 2017. LAB L501.1000 7-18 mg/dL High BUN 35 LAB L501.1100 0.55-1.02 mg/dL High CREAT,SERUM 1.08 Result Comment: The validity of the calculated GFR AND GFRAA in patients over 70 years has not been determined. Clinical correlation is essential. LAB L501.1110 >60 mL/min Low EST GFR 53 Result Comment: Non- GFR Calc LAB L501.1115 >60 mL/min Normal EST GFR - AA 64 Result Comment: GFR Calc LAB L501.1255 ml/min Normal Estimated CRCL 33.82 LAB L501.1300 10-20 RATIO High BUN/CRE 32.4 LAB L501.2200 8.5-10 mg/dL Normal .1 CA 8.9 LAB L501.5300 136-14 mmol/L High 5 NA 146 LAB L501.5600 3.5-5. mmol/L Normal 1 K 5.0 LAB L501.5900 98-107 mmol/L High CL 111 LAB L501.6100 21.0-3 mmol/L Normal 2.0 CO2 31.0 LAB L501.6200 5-15 Low GAP 4 Performed By: #### L500.2500 #### [facility] [address] [facility] [place], [address] CHEST PA AND LATERAL Observed: 07/18/2018 Status: F Source: [place] 9:58 PM [facility] [place] [facility] Imaging Services [address] [place] [address] Chest PA and Lateral MR#: [id number] Acct: [id number] Name: SHADI GARDUNO Rep #: [id number] : 1945 F 73 From: Rodney Mosley DO PCP: Ayush CASTANO,Azendoo Status: REG ER Study: Chest PA and Lateral Date of Exam: 07/18/18 Exam# [id number] Ordering Dr: Jaswant Gill MD STUDY: X-RAY CHEST REASON FOR EXAM: Female, 73 years old. Hypertension. Lethargy. TECHNIQUE: PA and lateral views of the chest. COMPARISON: August 24, 2016. FINDINGS: Telemetry wires overlie the chest. There is persistent elevation left hemidiaphragm with left basilar atelectasis. There is no new mass or infiltrate in the lungs There is no demonstrated pleural abnormality. Normal size heart. Normal mediastinum and ester. Normal visualized pulmonary arteries. Normal visualized aortic arch and descending thoracic aorta. There are diffuse degenerative changes of the visualized thoracic spine. There is degenerative osteoarthritis of the bilateral shoulders. There is air in loops of small bowel and colon beneath the diaphragms. RAD/Chest PA and Lateral IMPRESSION: No acute cardiopulmonary disease or major interval change. Electronically Signed: Rodney Mosley DO at 22:45 EDT Tel [phone], Service support , CC: Giovany Sandoval MD; Jaswant Gill MD Beam Dyer: Signed SURGICAL PATHOLOGY Observed: 07/15/2018 Status: C Source: [place] 10:00 AM CLINIC OTHER CAMPUS REPOSITORY ADDENDUM PRESENT Specimen originated from [facility] Specimen #: [id number] Submitting Physician: Dionicio Anguiano M.D. FINAL DIAGNOSIS 1. Duodenum, biopsy (A) - Duodenal mucosa with focal reactive mucin loss. - No morphologic evidence of giardia organisms or histologic features of celiac disease. 2. Ulcer, gastric antrum, biopsy (B) - Active gastritis with ulcer, prominent eosinophilia, and reactive epithelial changes. - See comment. 3. Polyp, gastric body, biopsy (C) - Early fundic gland polyp, negative for dysplasia. 4. Gastric body and angularis, biopsy (D) - Mild chronic inactive gastritis. - No morphologic evidence of H. pylori organisms. 5. Esophagogastric junction, biopsy (E) - Squamous epithelium with mild basal cell hyperplasia and patchy intraepithelial lymphocytes of uncertain clinical significance. COMMENT 2. Sections demonstrate active gastritis with ulcer and reactive epithelial changes. Prominent eosinophils are present within the lamina propria and within a perivascular distribution surrounding vessels within the muscularis mucosae/ superficial submucosa. Gastric eosinophilia is a nonspecific histologic finding that can be seen with medication injury, food allergies, infections including parasites, eosinophilic gastroenteritis, collagen vascular disorders, and vasculitis (including Churg-David syndrome), among other etiologies. Clinical correlation is recommended. Results of immunohistochemical stains for H. pylori and CMV will be reported in an addendum. DONITA/arabella 07/16/2018 Jessika Escobar M.D. (Electronic Signature) SPECIMEN SUBMITTED A: DUODENUM, BIOPSY B: GASTRIC ANTRAL ULCER C: GASTRIC BODY POLYP D: GASTRIC BODY AND ANGULARIS E: ESOPHAGOGASTRIC JUNCTION, BIOPSY ADDENDUM Date Ordered: 07/16/2018 Date Reported: 07/17/2018 2. Given the background of ulcer and prominent eosinophilia, immunohistochemical stains for H. pylori and CMV were performed on block B1 and are negative. DONITA/plvasquez 07/16/2018 Laboratory Developed Test (LDT) Disclaimer: Positive and negative controls stain appropriately. Performance characteristics of immunohistochemical, immunofluorescent and chromogenic in-situ hybridization tests have been determined by [facility] Medicine [place] [facility]) in a manner consistent with CLIA requirements. One or more of these tests have not been cleared or approved by the FDA. [facility] is regulated under CLIA as qualified to perform high-complexity testing. These tests are used for clinical purposes. They should not be regarded as investigational or for research. Addendum Pathologist: Jessika Escobar M.D. Electronic Signature CLINICAL DATA A-R/O CELIAC SPRUE AND GIARDIA, B-R/O H PYLORI, C-R/O GIB, D-R/O H PYLORI, E-R/O ROQUE'S, LMP: NA GROSS DESCRIPTION A. Received in formalin are two pieces of che, soft tissue aggregating to 0.4 x 0.2 x 0.1 cm. Totally submitted in one cassette. B. Received in formalin are two pieces of che, soft tissue aggregating to 0.3 x 0.2 x 0.1 cm. Totally submitted in one cassette. C. Received in formalin is one piece of che, soft tissue measuring 0.2 x 0.1 x 0.1 cm. Totally submitted in one cassette. D. Received in formalin are three pieces of che, soft tissue aggregating to 0.5 x 0.2 x 0.1 cm. Totally submitted in one cassette. E. Received in formalin are two pieces of che, soft tissue aggregating to 0.2 x 0.2 x 0.1 cm. Totally submitted in one cassette. Gross examination performed at [facility], [address] [place] [address] 07/15/2018 1:59:46 PM Date of Report: 07/16/2018 Date of Procedure: 07/15/2018 Date of Receipt: 07/15/2018 Submitted by: Dionicio Anguiano M.D. Location: [facility] Diagnostic interpretation performed at [facility], [address] [place] [address]. Performed By: #### PATHS #### [place] [address] [phone] PT ED Observed: 07/15/2018 Status: COMPLETED Source: [place] 9:54 AM CLINIC OTHER CAMPUS REPOSITORY HNO ID: [id number] Author: Tara (Rn) TIM Syed Service: Nursing Author Type: Registered Nurse Type: Patient Education Filed: 07/15/2018 9:55 AM Note Text: POST OP LEARNING RESPONSE INSTRUCTION PROVIDED TO: Patient and Caregiver METHOD OF INSTRUCTION: Written instruction - handouts Verbal instruction PATIENT / FAMILY RESPONSE: Verbalizes understanding of: PAIN MANAGEMENT-Effective strategies to manage pain in addition to pain medication PHYSICAL RESTRICTIONS-Physical restrictions and recommendations after discharge from the hospital POST-OPERATIVE INSTRUCTIONS-Correct actions to take to reduce postoperative complications PATIENT SAFETY PRINCIPLES SYMPTOM MANAGEMENT-Correct actions to take to manage symptoms associated with his/her disease/illness WORSENING CONDITION-Signs and symptoms of a worsening condition that warrant a call to the physician FOLLOW-UP PLAN: Patient instructed to call with any further issues Contact information given. SUPPLEMENTAL MATERIAL: None REFERRAL (RECOMMENDATION): None Electronically Signed By: Tara Syed RN In Department: [facility] ENDOSCOPY NURSING PROG Observed: 07/15/2018 Status: COMPLETED Source: [place] 9:53 AM [facility] REPOSITORY HNO ID: [id number] Author: Tara (Rn) TIM Syed Service: Nursing Author Type: Registered Nurse Type: Nursing Progress Note Filed: 07/15/2018 9:54 AM Note Text: Nursing Progress Note Patient Name: Shadi Garduno Patient Location: [facility] caregiver called to bedside, pudding and water given. Awaiting to fill out return to work paperwork. Pt denies pain, active and communicative. This note was completed by: Tara Syed RN ANES POST Observed: 07/15/2018 Status: COMPLETED Source: [place] 9:35 AM [facility] REPOSITORY HNO ID: [id number] Author: Nish Wisdom Service: Anesthesiology Author Type: Anesthesiologist Type: Anesthesia PostOp Filed: 07/15/2018 9:35 AM Note Text: POST ANESTHESIA EVALUATION NOTE SERVICE DATE: 07/15/2018 SERVICE TIME: : 1945 Vitals: 07/15/1873507/15/1885107/15/18929 Temp: 37 ?C (98.6 ?F) 36.2 ?C (97.2 ?F) 36.5 ?C (97.7 ?F) 07/15/1885123/18 0900 07/15/18 0915 07/15/1830 BP: 95/55 104/57 105/59 104/57 07/15/18 0852 07/15/18 0900 07/15/18 0915 07/15/1830 Pulse: 69 71 69 65 07/15/18 0852 07/15/18 0900 07/15/18 0915 07/15/1830 Resp: 16 16 16 16 07/15/18 0736 07/15/18 0852 07/15/1889907/15/18929 SpO2: 98% 98% 98% 97% Validated Vital Signs: Yes POST ANES STATUS: No apparent anesthetic complications. The patient is appropriately hydrated with stable respiratory and cardiovascular status. Patient has safe and adequate airway control. The patient has appropriate pain relief and no significant post operative nausea or vomiting. The patient has achieved baseline mental status. Intra-Operative Events: No Significant Anesthesia Events Further assessment by Anesthesia Service: None Other Remarks: SIGNATURE: Nish Wisdom MD PATIENT NAME: Shadi Ovalle Laureen DATE: July 15, 2018 TIME: 9:35 AM PAGER/CONTACT #: anesthesia BRIEF OP NOT Observed: 07/15/2018 Status: COMPLETED Source: [place] 8:49 AM [facility] OTHER CAMPUS REPOSITORY O ID: [id number] Author: Dionicoi Anguiano Service: (none) Author Type: Physician Type: Brief Op Note Filed: 07/15/2018 8:51 AM Note Text: BRIEF OPERATIVE / PROCEDURE NOTE LOG ID: [id number] SURGERY/PROCEDURE DATE: 07/15/2018 INCISION/PROCEDURE START TIME: 8:36 AM INCISION CLOSE/PROCEDURE END TIME: 8:47 AM SURGEON(S)/PROCEDURALIST(S) AND BRASS POLISHER(S): Surgeon(s) and Role: * Dionicio Anguiano - Primary No Additional Staff SURGERY/PROCEDURE(S): egd wbx and polypectomy ANESTHESIA: Monitored Anesthesia Care FINDINGS: gastric ulcer/gastric polyps/hiatal hernia ESTIMATED BLOOD LOSS: 0 ml SPECIMENS: gastric/ge jnx COMPLICATIONS: None PRE-OP/PRE-PROCEDURE DIAGNOSIS: abnormal gastric appearance on ct POST-OP/POST-PROCEDURE DIAGNOSIS: as above SIGNATURE: Dionicio Anguiano MD PATIENT NAME: Shadi Vasquez Laureen DATE: July 15, 2018 TIME: 8:49 AM PAGER/CONTACT #: [phone] PT ED Observed: 07/15/2018 Status: COMPLETED Source: [place] 7:35 AM CLINIC OTHER CAMPUS REPOSITORY HNO ID: [id number] Author: Sandra (Rn) Tito, RN Service: (none) Author Type: Registered Nurse Type: Patient Education Filed: 07/15/2018 7:36 AM Note Text: PRE OP LEARNING ASSESSMENT PROCEDURE/SURGERY: GI PROCEDURES: EGD READINESS TO LEARN COGNITIVE ABILITY: Developmentally Disabled MOTIVATION TO LEARN: Interested FAMILY SUPPORT: Moderate - Family present but overwhelmed PATIENT LEARNS BEST BY: Verbal Instruction FACTORS AFFECTING LEARNING: Unable to assess PHYSICAL LIMITATIONS AFFECTING LEARNING: Limited Mobility Electronically Signed By: Sandra Francis RN In Department: [facility] ENDOSCOPY ANES PREOP Observed: 07/15/2018 Status: COMPLETED Source: [place] 7:29 AM [facility] REPOSITORY HNO ID: [id number] Author: Nish Wisdom Service: Anesthesiology Author Type: Anesthesiologist Type: Anesthesia PreOp Filed: 07/15/2018 7:30 AM Note Text: ANESTHESIOLOGY DAY OF SURGERY NOTE SERVICE DATE: 07/15/2018 SERVICE TIME: 04.20 : 1945 Procedure(s) (LRB): EGD (N/A) Surgeon(s): Dionicio Anguiano Estimated body mass index is 20.3 kg/m? as calculated from the following: Height as of 07/14/18: 157.5 cm (5' 2). Weight as of 07/14/18: 50.3 kg (111 lb). Most recent hematocrit and potassium results: Hematocrit 44.5 04/12/2017 Potassium 4.9 11/26/2012 ANES DOS/PREOP NOTE: Vitals: There were no vitals filed for this visit. ACTIVE PROBLEM LIST Sensorineural Hearing Loss, Unspecified Cerebral Palsy (Hcc) Goiter, Unspecified OSTEOPENIA ANXIETY GENERALIZED Esophageal Reflux Unspecified Intellectual Disabilities Unspecified Hypothyroidism Dysphagia, Unspecified(787.20) Dyskinesia of Esophagus Abnormality of Gait Other Physical Therapy Osteoporosis Essential Hypertension PAST MEDICAL HISTORY Diagnosis Date - Acute gastritis without mention of hemorrhage - Anxiety state, unspecified - Dermatophytosis of nail - Diaphragmatic hernia without mention of obstruction or gangrene - Dyskinesia of esophagus - Dysphagia - Dysphagia, unspecified(787.20) - Esophageal reflux - Esophageal reflux - Essential hypertension - Goiter, unspecified - Intestinal disaccharidase deficiencies and disaccharide malabsorption - Other specified infantile cerebral palsy - Spasm of muscle - Symptomatic menopausal or female climacteric states - Unspecified cataract - Unspecified intellectual disabilities PAST SURGICAL HISTORY Procedure Laterality Date - COLONOSCOP W/ OR W/O [facility] SPEC 10/05/15 Colonoscopy [facility] outpt - EGD W/O [facility] SPECIMEN W/BX 04/25/09 - EXCISION, BREAST LESION benign - REMOVAL GALLBLADDER - TOTAL ABDOM HYSTERECTOMY FAMILY HISTORY Problem Relation Age of Onset - Cancer Mother female cancer - Coronary Artery Disease Father Social History: Social History Substance Use Topics - Smoking status: Never Smoker - Smokeless tobacco: Never Used - Alcohol use No No current facility-administered medications on file prior to encounter. Current Outpatient Prescriptions on File Prior to Encounter: COMPOUNDED PRESCRIPTION Wheel Chair. Diagnosis: Cerebral Palsy 343.8 Chlorhexidine Gluconate (PERIDEX) 0.12 % mwsh Take 1 application by mouth twice daily. meloxicam (MOBIC) 7.5 mg tablet Take 7.5 mg by mouth once daily. propranolol (INDERAL) 20 mg tablet Take 20 mg by mouth twice daily. diazepam (VALIUM) 5 mg tablet TAKE 1 TABLET TWICE A DAY (8AM-8PM) levothyroxine (SYNTHROID) 50 mcg tablet Take 1 tablet by mouth once daily. therapeutic multivitamin (THERA VITAMIN) tablet Take 1 tablet by mouth once daily. citalopram (CELEXA) 20 mg tablet Take 1 tablet by mouth once daily. Aspirin 81 mg tab Take 1 tablet by mouth twice daily. loratadine (CLARITIN) 10 mg tablet Take 1 tablet by mouth once daily. Starch, Thickening, Powd Take 1 scoop by mouth three times daily. in liquid to thicken consistency with meals and as needed. triamcinolone acetonide (NASACORT AQ) 55 mcg NASAL nasal inhaler Use 2 Sprays in the nose once daily. Current Facility-Administered Medications: 0.9% NaCl 2-10 mL 2-10 mL INTRAVENOUS q 12 H Dionicio Anguiano Allergies: ALLERGIES Allergen Reactions - Cats DOS EXAM: Adequate NPO status: Yes Anesthetic risks, benefits, alternatives, personnel and consent discussed: Yes Patient agrees to proceed: Yes Previous Anesthesia: No history of adverse event. Airway Assessment: MP 2; Neck ROM: Full ROM without neurologic symptoms; Airway Evaluation: No significant abnormalities Symptoms of Sleep Apnea: None Dentition: Poor dentition Additional Physical Exam: Lungs: Patient health status unchanged since recent history and physical. See history and physical for exam findings. Lungs clear to auscultation. Good diaphragmatic excursion. Cardiac: Patient health status unchanged since recent history and physical. See history and physical for exam findings. normal S1 and S2; no rubs, no murmurs, and no gallops Additional Pertinent Findings: N/A Blood Products: Not anticipated for this procedure. Anesthetic Plan: General, Standard ASA Monitors Pain Management Plan: Parenteral or Oral ASA Class: 3 Other Medical Problems: None Chronic Beta Denis medication administered within 24 hours: N/A I have interviewed and examined the patient. I have reviewed the medical record and/or the pre-anesthesia evaluation, pertinent labs, and test results. Significant changes in the patient's condition since the History and Physical, not otherwise documented in primary service progress notes: No This contains updated information obtained within 48 hours of Surgery/Procedure. SIGNATURE: Nish Wisdom MD PATIENT NAME: Shadi Garduno DATE: July 15, 2018 TIME: 7:29 AM CSN: [id number] OPERATIVE NO Observed: 07/15/2018 Status: COMPLETED Source: [place] 12:00 AM [facility] OTHER [facility]AMP[facility] REPOSITORY [facility] ID: [id number] Author: Dionicio Anguiano Service: (none) Author Type: Physician Type: Operative Report Filed: 07/17/2018 12:24 PM Note Text: [facility] - Operative Report SHADI GARDUNO : 1945 AGE: 73. SEX: F PATIENT TYPE: A HOSP SVC: MASSIEL LOCATION: [facility] ATTENDING PHYSICIAN: MARIXA NUMBER: [id number] DATE OF SURGERY/PROCEDURE: 07/15/2018 INCISION/PROCEDURE START TIME: Scope in 08:36. INCISION CLOSE/PROCEDURE END TIME: Scope out 08:47. PREOPERATIVE DIAGNOSIS: As below POSTOPERATIVE DIAGNOSIS: As below SURGEON: Dionicio Anguiano M.D. BRASS POLISHER: Carmen Fowler. SURGERY/PROCEDURE: Esophagogastroduodenoscopy with biopsy and polypectomy. ANESTHESIA: mac LOG ID: [id number]. CONSENT: The patient's guardian was described the potential risks, benefits, and alternatives to upper endoscopy with intervention. All questions were answered. The guardian gave informed consent. DESCRIPTION OF PROCEDURE: The patient was placed in the left lateral decubitus position, monitored, and sedated via monitored anesthesia care. Under direct vision and without difficulty, the upper endoscope was advanced to the second portion of the duodenum. The first and second portions appeared normal. Biopsies were taken to rule out Giardia and celiac sprue. The scope was slowly and gently withdrawn into the stomach which revealed a patent and normal-appearing pylorus. Forward views of the antrum revealed several 5 mm benign-appearing ulcers. No evidence of mass or heaped-up borders, clear white bases. Multiple biopsies were taken to allow for histologic evaluation. The remainder of the antrum appeared normal. The upper body of the stomach demonstrated several small 3 to 4 mm benign-appearing polyps. One was removed via snare electrocautery and submitted for histologic evaluation. The remainder of the body appeared normal as did retroflexed views of the cardia and fundus. The scope was straightened and slowly withdrawn into the esophagus which revealed a 35 cm diaphragmatic hiatus and a 34 cm initiation of the tubular esophagus consistent with a 1 cm hiatal hernia. The mucosa within the hiatal hernia was normal. GE junction was mildly irregular. No mass lesion. Quartile biopsies to rule out Roque's esophagus. The scope was slowly and gently withdrawn, and the remainder of the esophagus appeared entirely normal, and the patient tolerated the procedure well. POSTOP PLANS: 1. Await biopsy results. 2. Limit anti-inflammatory medications if possible. 3. Initiate Protonix 40 mg each morning. 4. Follow up in my office in 4 to 6 weeks. 5. Repeat upper endoscopy in 3 months to document healing of gastric ulcers. Dionicio Anguiano M.D. MINA:[id number] /[id number] cc: * Dr. Mag Sandoval HISTORY PHYSICAL Observed: 07/14/2018 Status: COMPLETED Source: [place] 1:45 PM [facility] REPOSITORY HNO ID: [id number] Author: Yaritza Lucero Service: (none) Author Type: Nurse Practitioner Type: HANDP Filed: 07/14/2018 2:23 PM Note Text: HISTORY AND PHYSICAL EXAMINATION SERVICE DATE: 07/14/2018 SERVICE TIME: 1:45 PM PRIMARY CARE PHYSICIAN: Giovany Sandoval MD REASON FOR VISIT: Shadi Garduno is a 73 year old female who is scheduled for EGD at the request of Dr. Dionicio Anguiano for consultation. My final recommendation will be communicated back to the requesting physician by way of shared medical record or letter. The patient has the following: ACTIVE PROBLEM LIST Sensorineural Hearing Loss, Unspecified Cerebral Palsy (Hcc) Goiter, Unspecified OSTEOPENIA ANXIETY GENERALIZED Esophageal Reflux Unspecified Intellectual Disabilities Unspecified Hypothyroidism Dysphagia, Unspecified(787.20) Dyskinesia of Esophagus Abnormality of Gait Other Physical Therapy Osteoporosis Essential Hypertension Subjective CHIEF COMPLAINT: Pre-Op Exam HPI: 73 year old female presents with trouble with GERD. Patient presents with land surveyor assistant from the home she lives in. Hard to obtain health history as the patient is mostly non-verbal. Most health history is obtained from the chart. Oral Communication Instructor states patient went to the doctor because she wasn't feeling well earlier this year. Found to be backed up and dehydrated. Unsure if any abdominal pain is present. She is currently on a thickened liquid diet. No trouble swallowing with this diet. Denies nausea, vomiting, constipation, diarrhea or blood in the stool. No known liver disease. PAST MEDICAL HISTORY Diagnosis Date - Acute gastritis without mention of hemorrhage - Anxiety state, unspecified - Dermatophytosis of nail - Diaphragmatic hernia without mention of obstruction or gangrene - Dyskinesia of esophagus - Dysphagia - Dysphagia, unspecified(787.20) - Esophageal reflux - Esophageal reflux - Essential hypertension - Goiter, unspecified - Intestinal disaccharidase deficiencies and disaccharide malabsorption - Other specified infantile cerebral palsy - Spasm of muscle - Symptomatic menopausal or female climacteric states - Unspecified cataract - Unspecified intellectual disabilities PAST SURGICAL HISTORY Procedure Laterality Date - COLONOSCOP W/ OR W/O [facility] SPEC 10/05/15 Colonoscopy [facility] outpt - EGD W/O [facility] SPECIMEN W/BX 04/25/09 - EXCISION, BREAST LESION benign - REMOVAL GALLBLADDER - TOTAL ABDOM HYSTERECTOMY FAMILY HISTORY Problem Relation Age of Onset - Cancer Mother female cancer - Coronary Artery Disease Father SOCIAL HISTORY: Social History Marital status: Single Spouse name: Years of education: Number of children: Social History Main Topics Smoking status: Never Smoker Smokeless tobacco: Never Used Alcohol use: No Drug use: Unknown Social History Narrative Goes by Franc[place] Lives in snf Attends day program Prior to Admission medications as of 07/14/18 1400 Medication Sig Last Dose Taking famotidine (PEPCID) 40 mg tablet Take 1 tablet by mouth once daily. Taking Yes acetaminophen (ARTHRITIS PAIN RELIEVER) 650 mg CR tablet Take 650 mg by mouth twice daily. Taking Yes polyethylene glycol 3350 (MIRALAX, GLYCOLAX) 17 gram/dose powder Take 1 Cap-Full by mouth as needed. Taking Yes Chlorhexidine Gluconate (PERIDEX) 0.12 % mwsh Take 1 application by mouth twice daily. Taking Yes meloxicam (MOBIC) 7.5 mg tablet Take 7.5 mg by mouth once daily. Taking Yes propranolol (INDERAL) 20 mg tablet Take 20 mg by mouth twice daily. Taking Yes diazepam (VALIUM) 5 mg tablet TAKE 1 TABLET TWICE A DAY (8AM- 8PM) Taking Yes levothyroxine (SYNTHROID) 50 mcg tablet Take 1 tablet by mouth once daily. Taking Yes therapeutic multivitamin (THERA VITAMIN) tablet Take 1 tablet by mouth once daily. Taking Yes citalopram (CELEXA) 20 mg tablet Take 1 tablet by mouth once daily. Taking Yes Aspirin 81 mg tab Take 1 tablet by mouth twice daily. Taking Yes loratadine (CLARITIN) 10 mg tablet Take 1 tablet by mouth once daily. Taking Yes COMPOUNDED PRESCRIPTION Wheel Chair. Diagnosis: Cerebral Palsy 343.8 Taking Yes Starch, Thickening, Powd Take 1 scoop by mouth three times daily. in liquid to thicken consistency with meals and as needed. Taking Yes triamcinolone acetonide (NASACORT AQ) 55 mcg NASAL nasal inhaler Use 2 Sprays in the nose once daily. No medication comments found. ALLERGIES Allergen Reactions - Cats REVIEW OF SYSTEMS: PAIN ASSESSMENT: General: No weight loss, malaise or fevers. Neuro: Postive for Cerebral Palsy - can walk with walker, not long distances. Mostly non-verbal, can say some words and follow some commands. Denies TIAs, strokes, seizures, HAs or impaired sensorium. Respiratory: No history of current cough or dyspnea, or pneumonia in the past 6 weeks. No history of respiratory/pulmonary symptoms or problems. Cardiovascular: Positive for: Hypertension on Rx. Denies CP,MD, DVT, PE, lightheaded, dizziness, palpitations/arrhythmias, CAD, CHF or HLD. GI: See HPI. : No history of dysuria, frequency or incontinence,, stones or chronic kidney disease, No difficulty urinating, nocturia > 1 time per night or hematuria. 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 : Hysterectomy Endocrine: No history of diabetes. Has not taken steroids within the past 30 days. No history of endocrinological symptoms or problems. Hematology: Easy bruising / bleeding. Denies recent anemia or bleeding/clotting disorders. Oncology: No history of CA metastasis, chemo within 30 days, or radiotherapy within 90 days. Has not lost 10% of body wt in 6 months. No history of oncological symptoms or problems. Psych: (+) MRDD.on medication for anxiety. Musculoskeletal: Negative for joint pain or swelling, back pain or muscle pain. Skin: Negative for lesions, rash and itching. Objective PHYSICAL EXAM: VITALS: BP 118/68 Pulse 72 Temp (Src) 98.2 (Tympanic) Resp 16 Ht 5' 2[unable to obtain[ (1.58m) Wt 111 lb (50.3kg) SpO2 91% BMI 20.30 kg/(m2). General: Alert , No acute distress Skin: Normal color, no rash, no lesions. HEENT: Pupils equal, round and reactive., No carotid bruits Cardiovascular: Normal S1 AND S2, no rubs, murmurs or gallops. No JVD. Pulse regular. Lungs: Normal breath sounds, no wheezes or crackles., No chest deformities or chest wall tenderness. Abdomen: Positive bowel sounds. Extremities: No deformity, no edema or tenderness, no joint swelling or clubbing. Neurological: In wheel chair during exam. Able to follow most commands. Mostly non-verbal. Pulses: Carotid and radial pulses normal +2. Diagnostic tests reviewed for today's visit: Lab Value Units Date High Low HB No results within date range. HCT No results within date range. WBC No results within date range. PLT No results within date range. NA No results within date range. K No results within date range. GLUC No results within date range. BUN No results within date range. CREAT No results within date range. PTSEC No results within date range. INR No results within date range. APTT No results within date range. ALT No results within date range. AST No results within date range. TBILI No results within date range. TSH No results within date range. Lab Value Units Date High Low HCGQT No results within date range. UHCG No results within date range. HCG, BODY* No results within date range. Lab Value Units Date High Low ABORHD No results within date range. ABSCREEN No results within date range. No results found for: HBA1C Most recent labs Most recent imaging Assessment ASSESSMENT HTN - Well controlled on Rx. Cerebral palsy - able to walk on flat ground with walker. No known respiratory issues. MRDD - mostly non-verbal, able to follow some commands. Anxiety on Rx. GERD on Rx Hypothyroidism on Rx. METS: Walk a block or two on level ground (2.75 METs) Patient denies any chest pain or undue shortness of breath with the above physical activity. ASA Class: 3 ANESTHESIA FINDINGS: Intubation History: Unable to obtain Significant Anesthesia Considerations: Unable to obtain Airway Exam: General: Normal appearance Mallampati Score is CLASS IV ULBT: Unable to perform Neck: Distance from hyoid to mentum during neck extension is at least 3 finger breaths, Limited movement extension and turning to one or both sides, Short neck Mouth: Normal tongue size and Mouth opening greater than 2 finger breaths Dentition: Intact Airway History: Unable to obtain STOP BANG Score: Criteria: Hypertension Age over 50 (73 year old) Score = 2 PLAN This patient is optimally prepared for surgery. CONSULTS: Patient does not require consults for optimization at this time. The Following Tests/Procedures Have Been Initiated: Labs not indicated per [facility] protocol, EKG not indicated per [facility] protocol Planned Anesthetic: MAC Instructions Given to Patient: Patient given verbal and written preop instructions and voices comprehension and compliance. SIGNATURE: Yaritza Lucero APRN.CNP PATIENT NAME: Shadi Garduno DATE: July 14, 2018 TIME: 1:45 PM PAGER/CONTACT #: HOSP Observed: 06/24/2018 Status: COMPLETED Source: [place] 12:00 AM CLINIC OTHER CAMPUS REPOSITORY Patient:Shadi Garduno MRN: <[id number]> Height:5' 2[unable to obtain[(1.575 m) Weight:111 lb (50.349 kg) Outpatient Medications as of 07/15/18: famotidine (PEPCID) 40 mg tablet acetaminophen (ARTHRITIS PAIN RELIEVER) 650 mg CR tablet polyethylene glycol 3350 (MIRALAX, GLYCOLAX) 17 gram/dose powder Chlorhexidine Gluconate (PERIDEX) 0.12 % mwsh meloxicam (MOBIC) 7.5 mg tablet propranolol (INDERAL) 20 mg tablet diazepam (VALIUM) 5 mg tablet levothyroxine (SYNTHROID) 50 mcg tablet citalopram (CELEXA) 20 mg tablet therapeutic multivitamin (THERA VITAMIN) tablet Aspirin 81 mg tab loratadine (CLARITIN) 10 mg tablet COMPOUNDED PRESCRIPTION Starch, Thickening, Powd triamcinolone acetonide (NASACORT AQ) 55 mcg NASAL nasal inhaler Admission/Clinic Administered Medications as of 07/15/18: 0.9% NaCl 2-10 mL Problem List: Sensorineural hearing loss, unspecified [H90.5] Cerebral palsy (HCC) [G80.9] Goiter, unspecified [E04.9] OSTEOPENIA [M89.9, M94.9] ANXIETY GENERALIZED [F41.1] Esophageal reflux [K21.9] Unspecified intellectual disabilities [F79] Unspecified hypothyroidism [E03.9] Dysphagia, unspecified(787.20) [R13.10] Dyskinesia of esophagus [K22.4] Abnormality of gait [R26.9] Other physical therapy [YYY1544] Osteoporosis [M81.0] Essential hypertension [I10] Allergies: Cats Date Verified: 07/15/18 Lab Values No results within the last 30 days for the following basenames: K,HCT No progress notes entered within the past 30 days STOOL Observed: 06/11/2018 Status: F Source: LINDA LACTOFERRIN/WBC 12:16 PM [facility] [place] Stool Lacto/WBC Normal Reference Range = Negative Fecal WBC Lactoferrin Positive: Fecal WBC Lactoferrin present Performed By: #### M100.0605, M100.7900, M100.6796, M100.637 #### [facility] [address] [place], [place], [id number] Observed: 06/11/2018 Status: F Source: LINDA STOOL OCCULT BLOOD 12:16 PM [facility] [place] STOB iFOB Occult Blood Positive ORGANISM 1: OCCULT BLOOD POSITIVE Performed By: #### M100.0605, M100.7900, M100.6796, M100.637 #### [facility] [address] [place], [address] Observed: 06/11/2018 Status: F Source: [place] CDIFF (MOLECULAR) 12:16 PM [facility] [place] [facility] Cdiff-Molecular Normal Reference Range = Negative C. Diff DNA Negative- No toxigenic C. Diff DNA Detected NAAT METHOD Testing was performed using nucleic acid amplification Performed By: #### M100.0605, M100.7900, M100.6796, M100.637 #### [place] [address] [facility] [place], [address] Observed: 06/11/2018 Status: F Source: [place] ENTERIC PATHOGEN 12:16 PM [facility] [place]OL REPOSITORY EP PANEL STOOL Normal Reference Range = Not Detected Not detected for Campylobacter group, Salmonella species, Shigella species, Vibrio Group, Yersinia enterocolitica, EHEC (Shiga Toxin 1, Shiga Toxin 2), Norovirus Gl/Gll, and Rotavirus A. Other common stool pathogens are not detected on this panel include: Aeromonas/Plesiomonas or parasites. Order testing for these organisms separately if suspected. This is an amplified DNA test which makes it both specific and sensitive. CAMPYLOBACTER Not Detected Salmonella Not Detected Shigella sp. Not Detected Shiga Toxin Not Detected Yersinia Not Detected VIBRIO Not Detected Norovirus Not Detected Rotavirus Not Detected Performed By: #### M100.0605, M100.7900, M100.6796, M100.637 #### [place] [address] [facility] [place], [address] Observed: 06/10/2018 Status: F Source: [place] RESPIRATORY PANEL 5:12 PM [facility] [place] [place] RP PANEL Normal Reference Range = Not Detected ADENOVIRUS Not Detected HUMAN METAPHNEUMO Not Detected INFLUENZA A Not Detected INFLUENZA A (SUBTYPE H1) Not Detected INFLUENZA A (SUBTYPE H3) Not Detected INFLUENZA B Not Detected PARAINFLUENZA 1 Not Detected PARAINFLUENZA 2 Not Detected PARAINFLUENZA 3 Not Detected PARAINFLUENZA 4 Not Detected RHINOVIRUS Not Detected RSV A Not Detected RSV B Not Detected NAAT METHOD Testing was performed using nucleic acid amplification Performed By: #### M100.638 #### [facility] [address] [place], [address] ABDOMEN/PELVIS WITH Observed: 06/10/2018 Status: F Source: [place] CONTRAST 4:52 PM [facility] [place] [facility] [facility] Imaging Services [address] [place] [address] Abdomen/Pelvis WITH Contrast MR#: [id number] Acct: [id number] Name: SHADI GARDUNO Rep #: [id number] : 1945 F 72 From: Terry Tellez DO PCP: Ayush CASTANO,Giovany Zimmerman Status: REG CLI Study: Abdomen/Pelvis WITH Contrast Date of Exam: 06/10/18 Exam# [id number] Ordering Dr: Giovany Sandoval MD STUDY: CT ABDOMEN AND PELVIS WITH CONTRAST REASON FOR EXAM: Female, 72 years old. Abdominal pain, rectal bleeding RADIATION DOSAGE (If Supplied By Facility): CTDIvol = ( 14.71 ) mGy, DLP = ( 684.37 ) mGycm TECHNIQUE: Transaxial images were obtained from the dome of the diaphragm to the symphysis pubis without oral contrast. 100CC ml of Isovue 300 contrast was administered. Sagittal and coronal images were reconstructed. Individualized dose optimization techniques were used for this CT. COMPARISON: None. FINDINGS: Calcified granuloma in the right lung base. The visualized portions of the heart are within normal limits. Normal liver. Status post cholecystectomy. Mild dilatation of the extrahepatic biliary system. Normal spleen. Normal pancreas. Normal bilateral adrenal glands. Normal right kidney. Normal left kidney. Distend stomach with air-fluid level. Normal small intestine. Fecal distended rectum. The appendix is not visualized. Normal abdominal aorta. Normal inferior vena cava. Normal retroperitoneum. Normal urinary bladder. Normal abdominal wall. Degenerative vertebral changes. CT/Abdomen/Pelvis WITH Contrast IMPRESSION: Distended stomach with air-fluid level. Fecal distended rectum. Electronically Signed: Terry Tellez DO at 21:39 EDT Tel [phone], Service support , CC: Giovany Sandoval MD Beam Dyer: Signed CBC W/DIFF, AUTOMATED Collected: 06/10/2018 Status: F Source: [place] 2:13 PM [facility] [place] TYPE CODE TESTS RESULT OUT OF RANGE REFERENCE UNITS LAB L100.1000 4.4-11.0 K/mm3 Normal WBC 7.6 LAB L100.1200 4.2-5.4 M/mm3 Normal RBC 4.69 LAB L100.1300 12.0-15.0 g/dl Normal HGB 13.5 LAB L100.1400 37-47 % Normal HCT 43.8 LAB L100.1500 81-99 fL Normal MCV 93.4 LAB L100.1600 27.0-32.0 pg Normal MCH 28.8 LAB L100.1700 32-36 g/gl Low MCHC 30.8 LAB L100.1810 11.6-14.6 % Normal RDW CV 14.2 LAB L100.1820 35.1-43.9 fl High RDW SD 47.8 LAB L100.1900 150-450 K/mm3 Normal PLT 277 LAB L100.2000 6.2-12.0 fl Normal MPV 11.0 LAB L100.2100 47-70 % Low NEUT% 46.3 LAB L100.2200 19-41 % Normal LY% 31.0 LAB L100.2300 0-10 % High MONO% 15.4 LAB L100.2400 0-5 % High EO% 6.4 LAB L100.2500 0-1 % Normal BASO% 0.8 LAB L100.2550 0.0-0.9 % Normal IM GRAN % 0.100 Result Comment: IG% - Immature Granulocytes (promyelocytes, myelocytes and metamyelocytes) > 1% indicates that a LEFT SHIFT is Present. LAB L100.2620 2.0-7.7 X10 3/uL Normal Absolute Neut 3.5 LAB L100.2720 0.83-4.51 X10 3/ul Normal Absolute Lymph 2.34 Performed By: #### L100.0100 #### [facility] [address] [place], [address] COMPREHENSIVE METABOLIC Collected: 06/10/2018 Status: F Source: LINDA [facility] 2:13 PM [facility] [place] TYPE CODE TESTS RESULT OUT OF RANGE REFERENCE UNITS LAB L501.0100 74-106 mg/dL Normal GLU 76 Result Comment: Please note revised GLUCOSE reference range effective 2017. LAB L501.1000 7-18 mg/dL High BUN 22 LAB L501.1100 0.55-1.02 mg/dL Normal CREAT,SERUM 0.90 Result Comment: The validity of the calculated GFR AND GFRAA in patients over 70 years has not been determined. Clinical correlation is essential. LAB L501.1110 >60 mL/min Normal EST GFR 65 Result Comment: Non- GFR Calc LAB L501.1115 >60 mL/min Normal EST GFR - AA 79 Result Comment: GFR Calc LAB L501.1300 10-20 RATIO High BUN/CRE 24.4 LAB L501.1500 6.4-8.2 g/dL T Normal PROT 6.8 LAB L501.1800 3.2-5.0 g/dL Normal ALB 3.6 LAB L501.1950 2.2-4.2 g/dL Normal GLOB 3.2 LAB L501.2000 0.9-2.4 RATIO Normal A/G 1.1 LAB L501.2200 8.5-10.1 mg/dL CA Normal 9.0 LAB L501.4100 15-37 U/L Normal AST 20 LAB L501.4305 45-117 U/L Normal ALK P 95 LAB L501.4405 13-56 U/L Normal ALT 22 LAB L501.4600 0.20-1.00 mg/dL T Normal BILI 0.40 LAB L501.5300 136-145 mmol/L NA Normal 144 LAB L501.5600 3.5-5.1 mmol/L K Normal 4.1 LAB L501.5900 98-107 mmol/L High CL 108 LAB L501.6100 21.0-32.0 mmol/L Normal CO2 31.0 LAB L501.6200 5-15 Normal GAP 5 Performed By: #### L500.4050 #### [facility] [address] [place], [address] CBC W/DIFF, AUTOMATED Collected: 03/05/2018 Status: F Source: LINDA 10:04 AM [facility] [place] TYPE CODE TESTS RESULT OUT OF RANGE REFERENCE UNITS LAB L100.1000 4.4-11.0 K/mm3 Normal WBC 6.9 LAB L100.1200 4.2-5.4 M/mm3 Normal RBC 4.50 LAB L100.1300 12.0-15.0 g/dl Normal HGB 13.2 LAB L100.1400 37-47 % Normal HCT 42.1 LAB L100.1500 81-99 fL Normal MCV 93.6 LAB L100.1600 27.0-32.0 pg Normal MCH 29.3 LAB L100.1700 32-36 g/gl Low MCHC 31.4 LAB L100.1810 11.6-14.6 % Normal RDW CV 14.2 LAB L100.1820 35.1-43.9 fl High RDW SD 46.6 LAB L100.1900 150-450 K/mm3 Normal PLT 238 LAB L100.2000 6.2-12.0 fl Normal MPV 11.2 LAB L100.2100 47-70 % Normal NEUT% 53.8 LAB L100.2200 19-41 % Normal LY% 28.2 LAB L100.2300 0-10 % High MONO% 12.6 LAB L100.2400 0-5 % Normal EO% 4.7 LAB L100.2500 0-1 % Normal BASO% 0.4 LAB L100.2550 0.0-0.9 % Normal IM GRAN % 0.300 Result Comment: IG% - Immature Granulocytes (promyelocytes, myelocytes and metamyelocytes) > 1% indicates that a LEFT SHIFT is Present. LAB L100.2620 2.0-7.7 X10 3/uL Normal Absolute Neut 3.7 LAB L100.2720 0.83-4.51 X10 3/ul Normal Absolute Lymph 1.94 Performed By: #### L100.0100 #### [facility] [address] [place], [address] VITAMIN D,25 HYDROXY Collected: 03/05/2018 Status: F Source: LINDA 10:04 AM [facility] [place] TYPE CODE TESTS RESULT OUT OF REFERENCE UNITS RANGE LAB L506.1000 29.95-100.01 ng/mL Low Vitamin D 18.6 25-OH Result Comment: Vitamin D 25(OH) Status Range Deficiency <20 ng/mL (50nmol/L) Insuffciency 20 - 30 ng/mL (50 - 75 nmol/L) Sufficiency 30 - 100 ng/mL (75 - 250 nmol/L) Toxicity >100 ng/mL (>250 nmol/L) Performed By: #### L506.1000 #### [facility] [address] [place], [address] COMPREHENSIVE METABOLIC Collected: 03/05/2018 Status: F [facility] [place] [facility] TYPE CODE TESTS RESULT OUT OF RANGE REFERENCE UNITS LAB L501.0100 74-106 mg/dL Normal GLU 76 Result Comment: Please note revised GLUCOSE reference range effective 2017. LAB L501.1000 7-18 mg/dL High BUN 22 LAB L501.1100 0.55-1.02 mg/dL Normal CREAT,SERUM 0.79 Result Comment: The validity of the calculated GFR AND GFRAA in patients over 70 years has not been determined. Clinical correlation is essential. LAB L501.1110 >60 mL/min Normal EST GFR 76 Result Comment: Non- GFR Calc LAB L501.1115 >60 mL/min Normal EST GFR - AA 92 Result Comment: GFR Calc LAB L501.1300 10-20 RATIO High BUN/CRE 27.8 LAB L501.1500 6.4-8.2 g/dL T Normal PROT 6.6 LAB L501.1800 3.2-5.0 g/dL Normal ALB 3.4 LAB L501.1950 2.2-4.2 g/dL Normal GLOB 3.2 LAB L501.2000 0.9-2.4 RATIO Normal A/G 1.1 LAB L501.2200 8.5-10.1 mg/dL CA Normal 8.7 LAB L501.4100 15-37 U/L Normal AST 22 LAB L501.4305 45-117 U/L Normal ALK P 75 LAB L501.4405 13-56 U/L Normal ALT 34 LAB L501.4600 0.20-1.00 mg/dL T Normal BILI 0.30 LAB L501.5300 136-145 mmol/L High NA 146 LAB L501.5600 3.5-5.1 mmol/L K Normal 4.6 LAB L501.5900 98-107 mmol/L High CL 108 LAB L501.6100 21.0-32.0 mmol/L Normal CO2 31.0 LAB L501.6200 5-15 Normal GAP 7 Performed By: #### L500.4050, L501.9520 #### [facility] [address] [place], [place], [address] THYROID STIM HORMONE Collected: 03/05/2018 Status: F Source: PORT [place] (TSH) 10:04 AM [facility] [place] TYPE CODE TESTS RESULT OUT OF RANGE REFERENCE UNITS LAB L501.9520 0.358-3.74 uIU/mL Normal TSH 0.47 Performed By: #### L500.4050, L501.9520 #### [facility] [address] [place], [place], [address] HEPATITIS C ANTIBODIES Collected: 03/05/2018 Status: F Source: [place] 10:04 AM [facility] [place] TYPE CODE TESTS RESULT OUT OF RANGE REFERENCE UNITS LAB L3100.0650 0.0-0.9 s/co ratio Normal HEP C AB <0.1 Result Comment: Negative: < 0.8 Indeterminate: 0.8 - 0.9 Positive: > 0.9 The CDC recommends that a positive HCV antibody result be followed up with a HCV Nucleic Acid Amplification test (604030). Performed at: - [facility] [id number] Pamphlet Distributor: Artis Gabriel PhD, Phone: [phone] Performed By: #### L3100.0625 #### [facility] (refer to report for specific site) refer to report for address and phone number ABD INC DECUB Observed: 02/21/2018 Status: F Source: LINDA AND/OR ERECT 10:50 AM [facility] [place] [facility] Imaging Services [address] [place] [address] Abd Inc Decub and/or Erect MR#: [id number] Acct: [id number] Name: SHADI GARDUNO Rep #: [id number] : 1945 F 72 From: Izabella Palm PCP: Ayush CASTANO,Giovany Zimmerman Status: REG CLI Study: Abd Inc Decub and/or Erect Date of Exam: 02/21/18 Exam# [id number] Ordering Dr: Giovany Sandoval MD STUDY: X-RAY - ABDOMEN/PELVIS REASON FOR EXAM: Female, 72 years old. Diarrhea for 3 weeks. TECHNIQUE: AP supine and upright views of the abdomen and pelvis. COMPARISON: 11/14/2017 FINDINGS: Gas-filled bowel loops are again seen throughout the abdomen and pelvis. There is no evidence of bowel obstruction. There is no demonstrated free abdominal air. Persistently evaluated left hemidiaphragm. Cholecystectomy clips are seen in the right upper quadrant. Normal soft tissue structures. There are diffuse degenerative changes of the visualized lumbar spine. Bilateral degenerative hip arthrosis. RAD/Abd Inc Decub and/or Erect IMPRESSION: Gas-filled bowel loops seen throughout the abdomen/pelvis, compatible with mild adynamic ileus/diarrheal disease. Nonobstructive bowel gas pattern. Electronically Signed: Socrates Palm MD at 10:13 EDT Tel , Service support , CC: Giovany Sandoval MD Beam Dyer: Signed STOOL Observed: 11/30/2017 Status: F Source: LINDA LACTOFERRIN/WBC 10:40 AM [facility] [place] [facility] Stool Lacto/WBC Fecal WBC Lactoferrin Negative: No Fecal WBC Lactoferrin present Performed By: #### M100.0605, M100.6796, M100.7900, M100.637 #### [facility] [address] [place], [address] Observed: 11/30/2017 Status: F Source: LINDA CDIFF (MOLECULAR) 10:40 AM [facility] [place] [facility] Cdiff-Molecular C. Diff DNA Negative- No toxigenic C. Diff DNA Detected NAAT METHOD Testing was performed using nucleic acid amplification Performed By: #### M100.0605, M100.6796, M100.7900, M100.637 #### [facility] [address] [place], [place], [address] Observed: 11/30/2017 Status: F Source: LINDA STOOL OCCULT BLOOD 10:40 [facility] REPOSITORY STOB iFOB Occult Blood Negative Performed By: #### M100.0605, M100.6796, M100.7900, M100.637 #### [facility] [address] [place], [place], [address] Observed: 11/30/2017 Status: F Source: LINDA ENTERIC PATHOGEN 10:40 [facility] PANEL STOOL REPOSITORY EP PANEL STOOL Normal Reference Range = Not Detected Not detected for Campylobacter group, Salmonella species, Shigella species, Vibrio Group, Yersinia enterocolitica, EHEC (Shiga Toxin 1, Shiga Toxin 2), Norovirus Gl/Gll, and Rotavirus A. Other common stool pathogens are not detected on this panel include: Aeromonas/Plesiomonas or parasites. Order testing for these organisms separately if suspected. This is an amplified DNA test which makes it both specific and sensitive. CAMPYLOBACTER Not Detected Salmonella Not Detected Shigella sp. Not Detected Shiga Toxin Not Detected Yersinia Not Detected VIBRIO Not Detected Norovirus Not Detected Rotavirus Not Detected Performed By: #### M100.0605, M100.6796, M100.7900, M100.637 #### [facility] [address] [place], [place], [address] Observed: 11/30/2017 Status: F Source: LINDA OVA AND PARASITES 10:40 [facility] REPOSITORY O + P OVA AND PARASITES EXAM, ROUTINE These results were obtained using wet preparation(s) and trichrome stained smear. This test does not include testing for Crytosporidium parvum, Cyclospora, or Microsporidia. [facility] AT [facility]. ORIGINAL REPORT ON FILE IN LAB CONTAINS ADDITIONAL TEST SITE INFORMATION. Ova/Parasite Exam NO OVA, CYSTS, OR PARASITES FOUND. Performed By: #### M600.5000 #### [facility] [address] [place], [address] URINALYSIS, COMPLETE Collected: 11/18/2017 Status: F Source: LINDA 8:00 AM [facility] [place] [facility] Order Comment: How was Urine Obtained? CLEAN CATCH TYPE CODE TESTS RESULT OUT OF RANGE REFERENCE UNITS LAB L400.3000 Yellow COLOR Normal Yellow LAB L400.3050 Clear Normal CLARITY Clear LAB L400.3200 Normal mg/dl Normal GLUCOSE, UR Normal LAB L400.3300 Negative mg/dL Normal BILIRUBIN URINE Negative LAB L400.3400 Negative mg/dl Normal KETONE UR Negative LAB L400.3465 1.002-1.030 Normal SP.GR. DIPSTX 1.020 LAB L400.3550 5.0 - 8.0 pH UR Normal 6.0 LAB L400.3600 Negative mg/dl PROT Normal DIPSTX Negative LAB L400.3700 Normal mg/dl Normal UROBILI Normal LAB L400.3750 Negative Normal NITRITE UR Negative LAB L400.3780 Negative /ul Normal OCCULT BLOOD-UR Negative LAB L400.3800 Negative /ul LEUK Normal ESTERASE Negative LAB L400.4050 0-5 /hpf WBC 0 Normal SEEN LAB L400.4100 0-5 /hpf 0 Normal RBC-UA SEEN LAB L400.4150 5-10 /hpf SQUAM Normal EPI 0-5 SEEN LAB L400.4300 None Seen /hpf 0 Normal BACTERIA SEEN LAB L400.4350 <or=2+ /hpf 0 Normal MUCUS, URINE SEEN Performed By: #### L400.0001 #### [facility] [address] [place], [address] Observed: 11/18/2017 Status: F Source: [place] CULTURE, URINE 8:00 AM [facility] [place] [facility] Urine Culture ORGANISM 1: Mixed Gram Positive Organisms [place] Count 1000-10,000 MIX CULTURE Mixed contaminants. Submit a new specimen if indicated. Performed By: #### M100.0650 #### [facility] [address] [facility] [place], [address] Observed: 11/14/2017 Status: F Source: [place] RESPIRATORY PANEL 1:25 PM [facility] [place] [facility] RP PANEL Normal Reference Range = Not Detected ADENOVIRUS Not Detected HUMAN METAPHNEUMO Not Detected INFLUENZA A Not Detected INFLUENZA A (SUBTYPE H1) Not Detected INFLUENZA A (SUBTYPE H3) Not Detected INFLUENZA B Not Detected PARAINFLUENZA 1 Not Detected PARAINFLUENZA 2 Not Detected PARAINFLUENZA 3 Not Detected PARAINFLUENZA 4 Not Detected RHINOVIRUS Not Detected RSV A Not Detected RSV B Not Detected NAAT METHOD Testing was performed using nucleic acid amplification Performed By: #### M100.638 #### [facility] [place], [address] ABD INC DECUB Observed: 11/14/2017 Status: F Source: LINDA AND/OR ERECT 1:24 PM [facility] [place] [facility] Imaging Services [address] [place] [address] Abd Inc Decub and/or Erect MR#: [id number] Acct: [id number] Name: SHADI GARDUNO Rep #: [id number] : 1945 F 72 From: Summer Benton MD PCP: Ayush CASTANO,Giovany Zimmerman Status: REG CLI Study: Abd Inc Decub and/or Erect Date of Exam: 11/14/17 Exam# [id number] Ordering Dr: Giovany Sandoval MD STUDY: X-RAY - ABDOMEN/PELVIS REASON FOR EXAM: Female, 72 years old. Abdominal pain and diarrhea. TECHNIQUE: AP supine and upright views of the abdomen and pelvis. COMPARISON: None. FINDINGS: Elevated left diaphragm. Substantial gaseous distention of the stomach. Nondistended small bowel. Diffuse nonspecific increase in colonic bowel gas to the level of the rectum. No substantial stool. Negative for gross organomegaly. Status post cholecystectomy. Normal soft tissue structures. There are diffuse degenerative changes of the visualized lumbar spine. RAD/Abd Inc Decub and/or Erect IMPRESSION: Air distended stomach. Nondistended small bowel. Diffuse gassy colon to the level of the rectum without visible stool. Findings are consistent with diarrhea but do not suggest a specific etiology. Negative for evidence of bowel perforation. Elevation of left diaphragm. Status post cholecystectomy. Electronically Signed: Summer Benton MD at 21:29 EST , Service support , CC: Giovany Sandoval MD Beam Dyer: Signed ALLERGIES ALLERGIES DATE TYPE / CODE NAME / CODE REACTION SEVERITY SOURCE 08/29/2017 Drug No Known Unknown [facility] Allergy/4160 Allergies/F00 [facility] 12290(SNOMED 6901325(RXNOR Repository CT) M) 02/12/2008 Animal/26848 CATS [facility] 4006(SNOMED Other [place]) Repository ENCOUNTERS ENCOUNTERS ADMIT/DISCHARGE ACCOUNT ADMITTING ENCOUNTER LOCATION SOURCE NUMBER CLASS 09/03/[id number] [facility] ing:POLAB3 Repository 09/01/2018 [id number] Inpatient [facility] [place] g:H.SD Repository 08/25/[id number] [facility] [place] [place] g:H.PAT Repository 08/05/[id number] [facility] ing:POLAB3 Repository 07/18/2018/07/19/20 [id number] Emergency [address] ing:ED Repository 07/15/2018 [id number] CALLES Ambulatory [facility] Other [place] Repository 07/14/2018/07/14/20 [id number] Ambulatory [place] [facility] Other [place] Repository 06/11/2018 [id number] Ambulatory [facility] ing:POLAB3 Repository 06/10/[id number] [facility] ing:CT Repository 04/02/2018 [id number] [facility]ulatory [facility] ing:OPBI Repository 03/06/2018/03/06/20 [id number] Ambulatory BMSBuilding:B [place] [facility] Repository 03/05/2018 [id number] Ambulatory [facility] ing:POLAB3 Repository 02/21/2018 [id number] [facility] ing:RAD Repository 11/30/2017 [id number] Ambulatory [facility] ing:LABSPEC Repository 11/18/[id number] [facility] ing:LABSPEC Repository 11/14/[id number] [facility] ing:RAD Repository PAYERS PAYERS ENCOUNTER GUARANTOR PAYER SUBSCRIBER SOURCE 09/03/2018 SHADI Phanoster [id number] Insurance:MEDICARE SMOTHERMANDOB: [facility] PART A [place] [id number] [place] [address] Number: Repository [address]Eea: [phone] [id number] [phone] () Date:2018-09-03 09/03/2018 Secondary SHADI J [place] Insurance:MEDICAIDPol SMOTHERMANDOB: Community icy Number: [id number] Hospital [id number] Repository Date:2018-09-03 09/03/2018 Tertiary NOT GIVENUNK [place] Insurance:SELF PAY [facility] Number: Effective Repository Date:2018-09-03 09/01/2018 SHADI Moreno [facility] [id number] Insurance:MEDICAREPol [facility] icy Number: Repository [place], [place] [id number] [address]Vgk: (330) Date:1977-08-23P O [phone] () [address] CODE [place]989VAPJBBSR, [place] [address]UV: 09/01/2018 Secondary SHADISYED Beckmanphillip Medical Insurance:MEDICAID [facility] Number: Repository [id number] Date:[id number] [address], [place] [address]BW: 08/05/2018 SHADI [place] Primary SHADI Phanoster [id number] Insurance:MEDICARE SMOTHERMANDOB: Community JENNY PART A [facility] [id number], [place] Number: Repository [address]Ijy: 330 [id number] [phone] () Date:2018-08-05 08/05/2018 Secondary SHADI Ovalle [place] Insurance:MEDICAIDPol [facility]: [facility] ic Number: [id number] Hospital [id number] Repository Date:2018-08-05 08/05/2018 Tertiary NOT GIVENUNK [place] Insurance:SELF PAY [facility] Number: Effective Repository Date:2018-08-05 07/18/2018 SHADI [place] Primary SHADI Phanoster [id number] Insurance:MEDICARE SMOTHERMANDOB: [facility] [id number], [place] Number: Repository [id number]: 330 [id number] [phone] () Date:2018-07-18 07/18/2018 Secondary SHADI Ovalle [place] Insurance:MEDICAIDPol SMOTHERMANDOB: [facility] ic Number: [id number] Hospital [id number] Repository Date:2018-07-18 07/18/2018 Tertiary NOT GIVENUNK [place] Insurance:SELF PAY [facility] Number: Effective Repository Date:2018-07-18 06/11/2018 SHADI Ovalle Primary SHADI Ovalle [place] [id number] Insurance:MEDICARE SMOTHERMANDOB: Community JENNY PART A [facility] [id number], [place] Number: Repository [address]Ery: 330 [id number] [phone] (HP) Date:2018-06-11 06/11/2018 Secondary SHADI Ovalle [place] Insurance:MEDICAIDPol SMOTHERMANDOB: Community icy Number: [id number] Hospital [id number] Repository Date:2018-06-11 06/11/2018 Tertiary NOT GIVENUNK [place] Insurance:SELF PAY [facility] Number: Effective Repository Date:2018-06-11 06/10/2018 SHADI Ovalle Primary SHADI [place] [id number] Insurance:MEDICARE SMOTHERMANDOB: Community JENNY PART A [facility] [id number], [place] Number: Repository [address]Dhg: 330 [id number] [phone] (HP) Date:2018-06-10 06/10/2018 Secondary SHADI Vasquez [place] Insurance:MEDICAIDPol SMOTHERMANDOB: Community ic Number: [id number] Hospital [id number] Repository Date:2018-06-10 06/10/2018 Tertiary NOT GIVENUNK [place] Insurance:SELF PAY [facility] Number: Effective Repository Date:2018-06-10 04/02/2018 SHADI Ovalle Primary SHADI [place] [id number] Insurance:MEDICARE SMOTHERMANDOB: Community JENNY PART A [facility] [id number], [place] Number: Repository [address]Gkk: 330 [id number] [phone] (HP) Date:2018-03-12 04/02/2018 Secondary SHADI Ovalle [place] Insurance:MEDICAIDPol SMOTHERMANDOB: Community icy Number: [id number] Hospital [id number] Repository Date:2018-03-12 04/02/2018 Tertiary NOT GIVENUNK [place] Insurance:SELF PAY [facility] Number: Effective Repository Date:2018-03-12 03/06/2018 SHADI Vasquez Primary SHADI [place] [id number] Insurance:MEDICARE SMOTHERMANDOB: Community JENNY PART A [facility] [id number], [place] Number: Repository [address]Nmh: [id number] [phone] Date:2018-03-06 0-4 (HP) 03/06/2018 Secondary SHADI [place] Insurance:MEDICAIDPol SMOTHERMANDOB: Community icy Number: [id number] Hospital [id number] Repository Date:2018-03-06 03/06/2018 Tertiary NOT GIVENUNK [place] Insurance:SELF PAY [facility] Effective Repository Date:2018-03-06 03/05/2018 Shadi Vasquez Primary Shadi Ovalle [place] [id number] Insurance:MEDICARE SmothermanDOB: Community JENNY PART A [facility] [id number] Number: Repository [id number]: [id number] [phone] Date:2018-03-05 0-4 () 03/05/2018 Secondary Shadi Ovalle [place] Insurance:MEDICAIDPol SmothermanDOB: Community icy Number: [id number] Hospital [id number] Repository Date:2018-03-05 03/05/2018 Tertiary NOT GIVENUNK [place] Insurance:SELF PAY [facility] Number: Effective Repository Date:2018-03-05 02/21/2018 Shadi Vasquez Primary Shadi Ovalle [place] [id number] Insurance:MEDICARE SmothermanDOB: Community JENNY PART A [facility] [id number], [place] Number: Repository [address]Pte: [id number] [phone] Date:2018-02-21 0-4 (HP) 02/21/2018 Secondary Shadi Vasquez [place] Insurance:MEDICAIDPol SmothermanDOB: Community icy Number: [id number] Hospital [id number] Repository Date:2018-02-21 02/21/2018 Tertiary NOT GIVENUNK [place] Insurance:SELF PAY [facility] Number: Effective Repository Date:2018-02-21 11/30/2017 Shadi Ovalle Primary Shadi Vasquez [place] [id number] Insurance:MEDICARE SmothermanDOB: Community JENNY PART A [id number] [place] [facility] [address]Cfc: [id number] [phone] Date:2017-11-30 0-4 (HP) 11/30/2017 Secondary Shadi [place] Insurance:MEDICAIDPol SmothermanDOB: Community icy Number: [id number] Hospital [id number] Repository Date:2017-11-30 11/30/2017 Tertiary NOT GIVENUNK [place] Insurance:SELF PAY [facility] Number: Effective Repository Date:2017-11-30 11/18/2017 Shadi Ovalle Primary Shadi [place] [id number] Insurance:MEDICARE SmothermanDOB: [facility] [id number], [place] Number: Repository [address]Agh: [id number] [phone] Date:2017-11-18 0-4 (HP) 11/18/2017 Secondary Shadi Ovalle [place] Insurance:MEDICAIDPol SmothermanDOB: [facility] ic Number: [id number] Hospital [id number] Repository Date:2017-11-18 11/18/2017 Tertiary NOT GIVENUNK [place] Insurance:SELF PAY [facility] Number: Effective Repository Date:2017-11-18 11/14/2017 Shadi J Primary Shadi [place] [id number] Insurance:MEDICARE Smother[place]DOB: Community JENNY PART A [id number] [place] Number[facility] Repository [address]Ges: [id number] [phone] Date:2017-11-14 0-4 (HP) 11/14/2017 Secondary Shadi Ovalle [place] Insurance:MEDICAIDPol SmothermanDOB: [facility] icy Number: [id number] Hospital [id number] Repository Date:2017-11-14 11/14/2017 Tertiary NOT GIVENUNK [place] Insurance:SELF PAY [facility] Number: Effective Repository Date:2017-11-14
== END ==
PROVIDERS: Family Provider Family Medicine Geriatric Medicine; Visit Provider Family Medicine Geriatric Medicine
DX: E03.9 Hypothyroidism, unspecified (principal); E55.9 Vitamin D deficiency, unspecified; I10 Essential (primary) hypertension
CPT/HCPCS: 36415; 80053; 82306; 84439; 84443; 84479; 85025

== ENCOUNTER → 2018-10-15 09:56 | Outpatient (CLI) | payer MEDICARE, MEDICAID, SELFPAY ==
--- NOTE | 2018-10-15 10:04 | RAD_ITS ---
STUDY: X-RAY - ACUTE ABDOMINAL SERIES REASON FOR EXAM: Female, 73 years old. Fecal impaction of the colon TECHNIQUE: Single view of the chest. Supine, and erect view(s) of the abdomen were obtained. COMPARISON: 02/21/2018 FINDINGS: The lungs are clear and expanded. Normal size heart. Normal mediastinum and ester. Normal visualized pulmonary arteries. Normal visualized aortic arch and descending thoracic aorta. Prominent gaseous distended loops of small and large bowel suggesting ileus. No evidence of significant fecal retention. No evidence of small bowel obstruction or free air. The soft tissue structures of the abdomen and pelvis are unremarkable. There are diffuse degenerative changes of the visualized lumbar spine. RAD/Acute Abdomen Inc Chest IMPRESSION: Clear lungs. Gaseous distended loops of small and large bowel suggesting ileus. No evidence of significant fecal retention or impaction Electronically Signed: Jake Max DO at 10:56 EST Tel , Service support ,
--- OUTSIDE RECORDS SUMMARY | 2018-12-17 06:33 | XMS RPT_ITS ---
:1945 Author Organization OHIP Support Name Relationship Address Phone LEN ELLINGTONYLA Unavailable [address] + [place] [address] R Unavailable Unavailable Unavailable RAKEL ESTRADA Unavailable [address] + [place] [address] R Unavailable Unavailable Unavailable ELLINGTON, ESTRADA Unavailable Unavailable + R Unavailable Unavailable Unavailable ELLINGTON, ESTRADA Unavailable Unavailable + R Unavailable Unavailable Unavailable ELLINGTON, ESTRADA Unavailable Unavailable + R Unavailable Unavailable Unavailable R Unavailable Unavailable Unavailable CLARE, JAYLENE Unavailable Unavailable + R Unavailable Unavailable Unavailable CLARE, JAYLENE Unavailable Unavailable + R Unavailable Unavailable Unavailable CLARE, JAYLENE Unavailable Unavailable + R Unavailable Unavailable Unavailable CLARE, JAYLENE Unavailable . + [place] [address] R Unavailable Unavailable Unavailable CLARE, JAYLENE Unavailable Unavailable + R Unavailable Unavailable Unavailable CLARE, JAYLENE Unavailable Unavailable + R Unavailable Unavailable Unavailable CLARE, JAYLENE Unavailable Unavailable + R Unavailable Unavailable Unavailable CLARE, JAYLENE Unavailable Unavailable + R Unavailable Unavailable Unavailable CLARE, JAYLENE Unavailable Unavailable + Care Team Providers Name Role Phone Ayush, [...] Care Unavailable Ayush, Giovany Chi Attending Unavailable Yaush, Giovany Chi Referring Unavailable Ayush, Giovany Chi [...] TYPE CONDITION / CODE ATTENDING STATUS SOURCE 10/16/2018 Unknown E03.9 - Ayush, Giovany Chi Active [place] Hypothyroidism, Community unspecified / Hospital E03.9(ICD-10) Repository 10/16/2018 Unknown E86.0 - Dehydration Ayush, Giovany Chi Active [place] / E86.0(ICD-10) Community Hospital Repository 10/15/2018 Unknown K56.41 - Fecal Ayush, Giovany Chi Active [place] impaction / Community K56.41(ICD-10) Hospital Repository 09/01/2018 Admitting Unknown / Jen Roblero [facility] Medical diagnosis UNK(Unknown) David Huddleston [facility] Repository 07/15/2018 Active Abnormal findings DIONICIO ANGUIANO Active [place] on diagnostic Clinic Other imaging of other [place] parts of digestive Repository tract / R93.3(ICD-10) 07/14/2018 Active Cerebral palsy, NA Active [place] unspecified / Clinic Other G80.9(ICD-10) [place] Repository 07/14/2018 Active Essential (primary) NA Active [place] hypertension / Clinic Other I10(ICD-10) [place] Repository 04/23/2007 Active Gastro-esophageal NA Active [place] reflux disease Clinic Other without esophagitis [place] / K21.9(ICD-10) Repository 07/14/2018 Active Encounter for other [facility] / [place] Z01.818(ICD-10) Repository 06/11/2018 Unknown R19.7 - Diarrhea, Ayush, Giovany Chi Active [place] unspecified / Community R19.7(ICD-10) Hospital Repository 06/11/2018 Unknown R10.9 - Unspecified Ayush, Giovany Chi Active [place] abdominal pain / Community R10.9(ICD-10) Hospital Repository 03/25/2018 Unknown Z12.31 - Encounter Ayush, Giovany Chi Active [place] for screening Community mammogram for Hospital malignant neoplasm Repository of breast / Z12.31(ICD-10) 03/05/2018 Unknown E55.9 - Vitamin D Ayush, Giovany Chi Active [place] deficiency, Community unspecified / Hospital E55.9(ICD-10) Repository 03/05/2018 Unknown R53.83 - Other Ayush, Giovany Chi Active [place] fatigue / Community R53.83(ICD-10) Hospital Repository 03/05/2018 Unknown Z13.89 - Encounter Ayush, Giovany Chi Active [place] for screening for Community other disorder / Hospital Z13.89(ICD-10) Repository 11/18/2017 Unknown N39.0 - Urinary Ayush, Giovany Chi Active [place] tract infection, Community site not specified Hospital / N39.0(ICD-10) Repository PROCEDURES PROCEDURES No Procedure Records FoundRESULTS RESULTS STOOL Observed: 10/15/2018 Status: F Source: [place] LACTOFERRIN/WBC 6:37 PM [facility] REPOSITORY Stool Lacto/WBC Normal Reference Range = Negative Fecal WBC Lactoferrin Negative: No Fecal WBC Lactoferrin present Performed By: #### M100.0605, M100.7900, M100.6796, M100.637 #### [facility] [address] [place], [address] Observed: 10/15/2018 Status: F Source: [place] STOOL OCCULT BLOOD 6:37 PM [facility] IFOB REPOSITORY STOB iFOB Occult Blood Positive ORGANISM 1: OCCULT BLOOD POSITIVE Performed By: #### M100.0605, M100.7900, M100.6796, M100.637 #### [facility] [address] [place], [address] Observed: 10/15/2018 Status: F Source: [place] CDIFF (MOLECULAR) 6:37 PM [facility] REPOSITORY Cdiff-Molecular Normal Reference Range = Negative C. Diff DNA Negative- No toxigenic C. Diff DNA Detected NAAT METHOD Testing was performed using nucleic acid amplification Performed By: #### M100.0605, M100.7900, M100.6796, M100.637 #### [facility] [address] [place], [address] Observed: 10/15/2018 Status: F Source: [place] ENTERIC PATHOGEN 6:37 PM [facility] PANEL STOOL REPOSITORY EP PANEL STOOL Normal [...] Yersinia Not Detected VIBRIO Not Detected Norovirus N Rotavirus Not Detected Performed By: #### M100.0605, M100.7900, M100.6796, M100.637 #### [facility] [address] [place], [address] Observed: 10/15/2018 Status: F Source: [place] OVA AND PARASITES 6:37 PM [facility] REPOSITORY O + P OVA AND PARASITES EXAM, ROUTINE These results were obtained using wet preparation(s) and trichrome stained smear. This test does not include testing for Crytosporidium parvum, Cyclospora, or Microsporidia. One negative specimen does not rule out the possibility of a parasitic infection. TESTING PERFORMED AT [facility]. ORIGINAL REPORT ON FILE IN LAB CONTAINS ADDITIONAL TEST SITE INFORMATION. Ova/Parasite Exam NO OVA, CYSTS, OR PARASITES FOUND. Performed By: #### M600.5000 #### [facility] [address] [place], [address] CBC W/DIFF, AUTOMATED Collected: 10/15/2018 Status: F Source: [place] 11:35 AM [facility] REPOSITORY TYPE CODE TESTS RESULT OUT OF RANGE REFERENCE UNITS LAB L100.1000 4.4-11.0 K/mm3 Normal WBC 5.8 LAB L100.1200 4.2-5.4 M/mm3 Normal RBC 4.27 LAB L100.1300 12.0-15.0 g/dl Low HGB 11.6 LAB L100.1400 37-47 % Normal HCT 38.4 LAB L100.1500 81-99 fL Normal MCV 89.9 LAB L100.1600 27.0-32.0 pg Normal MCH 27.2 LAB L100.1700 32-36 g/gl Low MCHC 30.2 LAB L100.1810 11.6-14.6 % Normal RDW CV 13.5 LAB L100.1820 35.1-43.9 fl Normal RDW SD 43.5 LAB L100.1900 150-450 K/mm3 Normal PLT 257 LAB L100.2000 6.2-12.0 fl Normal MPV 11.6 LAB L100.2100 47-70 % Low NEUT% 41.7 LAB L100.2200 19-41 % Normal LY% 36.4 LAB L100.2300 0-10 % High MONO% 14.8 LAB L100.2400 0-5 % High EO% 6.2 LAB L100.2500 0-1 % Normal BASO% 0.7 LAB L100.2550 0.0-0.9 % Normal IM GRAN % 0.200 Result Comment: IG% - Immature Granulocytes (promyelocytes, myelocytes and metamyelocytes) > 1% indicates that a LEFT SHIFT is Present. LAB L100.2620 2.0-7.7 X10 3/uL Normal Absolute Neut 2.4 LAB L100.2720 0.83-4.51 X10 3/ul Normal Absolute Lymph 2.12 Performed By: #### L100.0100 #### [facility] [address] [place], [place], [id number] BASIC METABOLIC Collected: 10/15/2018 Status: F Source: [place] PROFILE (BMP) 11:35 AM [facility] REPOSITORY TYPE CODE TESTS RESULT OUT OF RANGE REFERENCE UNITS LAB L501.0100 74-106 mg/dL Low GLU 72 Result Comment: Please note revised GLUCOSE reference range effective 2017. LAB L501.1000 7-18 mg/dL High BUN 27 LAB L501.1100 0.55-1.02 mg/dL High CREAT,SERUM 1.07 Result Comment: The validity of the calculated GFR AND GFRAA in patients over 70 years has not been determined. Clinical correlation is essential. LAB L501.1110 >60 mL/min Low EST GFR 54 Result Comment: Non- GFR Calc LAB L501.1115 >60 mL/min Normal EST GFR - AA 65 Result Comment: GFR Calc LAB L501.1300 10-20 RATIO High BUN/CRE 25.2 LAB L501.2200 8.5-10.1 mg/dL CA Normal 9.4 LAB L501.5300 136-145 mmol/L NA Normal 145 LAB L501.5600 3.5-5.1 mmol/L K Normal 4.3 LAB L501.5900 98-107 mmol/L CL Normal 107 LAB L501.6100 21.0-32.0 mmol/L Normal CO2 30.0 LAB L501.6200 5-15 Normal GAP 8 Performed By: #### L500.2500, L501.9520 #### [facility] [address] [facility] [place], [address] THYROID STIM HORMONE Collected: 10/15/2018 Status: F Source: [place] (TSH) 11:35 AM [facility] REPOSITORY TYPE CODE TESTS RESULT OUT OF RANGE REFERENCE UNITS LAB L501.9520 0.358-3.74 uIU/mL Normal TSH 1.06 Performed By: #### L500.2500, L501.9520 #### [facility] [address] [place], [address] ACUTE ABDOMEN INC Observed: 10/15/2018 Status: F Source: [place] CHEST 10:04 AM [facility] REPOSITORY [facility] Imaging Services [address] [place] [address] Acute Abdomen Inc Chest MR#: [id number] Acct: [id number] Name: SHADI GARDUNO Rep #: [id number] : 1945 F 73 From: Jake Max DO PCP: Giovany Sandoval MD, Chi Status: REG CLI Study: Acute Abdomen Inc Chest Date of Exam: 10/15/18 Exam# [id number] Ordering Dr: Giovany Sandoval MD STUDY: X-RAY - ACUTE ABDOMINAL SERIES REASON FOR EXAM: Female, 73 years old. Fecal impaction of the colon TECHNIQUE: Single view of the chest. Supine, and erect view(s) of the abdomen were obtained. COMPARISON: 02/21/2018 FINDINGS: The lungs are clear and expanded. Normal size heart. Normal mediastinum and ester. Normal visualized pulmonary arteries. Normal visualized aortic arch and descending thoracic aorta. Prominent gaseous distended loops of small and large bowel suggesting ileus. No evidence of significant fecal retention. No evidence of small bowel obstruction or free air. The soft tissue structures of the abdomen and pelvis are unremarkable. There are diffuse degenerative changes of the visualized lumbar spine. RAD/Acute Abdomen Inc Chest IMPRESSION: Clear lungs. Gaseous distended loops of small and large bowel suggesting ileus. No evidence of significant fecal retention or impaction Electronically Signed: Jake Max DO at 10:56 EST Tel , Service support , CC: Giovany Sandoval MD Manager General: Signed CBC W/DIFF, AUTOMATED Collected: 09/03/2018 Status: F Source: [place] 2:23 PM [facility] REPOSITORY TYPE CODE TESTS RESULT OUT [...] Lymph 2.14 Performed By: #### L100.0100 #### [facility] [address] [place], [place], [address] VITAMIN D,25 HYDROXY Collected: 09/03/2018 Status: F Source: [place] 2:23 PM [facility] REPOSITORY TYPE CODE TESTS RESULT OUT OF RANGE REFERENCE UNITS LAB L506.1000 29.95-100.01 ng/mL Normal Vitamin D 40.5 25-OH Result Comment: Vitamin D 25(OH) Status Range Deficiency <20 ng/mL (50nmol/L) Insuffciency 20 - 30 ng/mL (50 - 75 nmol/L) Sufficiency 30 - 100 ng/mL (75 - 250 nmol/L) Toxicity >100 ng/mL (>250 nmol/L) Performed By: #### L506.1000 #### [facility] [address] [place], [address] COMPREHENSIVE METABOLIC Collected: 09/03/2018 Status: F [facility] REPOSITORY Order Comment: DR SANDOVAL ADDED S2VJCQTX FT4 TYPE CODE TESTS RESULT OUT OF [...] By: #### L500.4050, L501.9520, L501.9195, L506.0400 #### [facility] [address] [place], [address] THYROID STIM HORMONE Collected: 09/03/2018 Status: F Source: [place] (TSH) 2:23 PM [facility] REPOSITORY Order Comment: DR SANDOVAL ADDED C4VLDIYL FT4 TYPE CODE TESTS RESULT OUT OF RANGE REFERENCE UNITS LAB L501.9520 0.358-3.74 uIU/mL Low TSH 0.23 Performed By: #### L500.4050, L501.9520, L501.9195, L506.0400 #### [facility] [address] [place], [place], [id number] T3 UPTAKE Collected: 09/03/2018 Status: F Source: [place] 2:23 PM [facility] REPOSITORY Order Comment: DR SANDOVAL ADDED U1FJZELW FT4 TYPE CODE TESTS RESULT OUT OF RANGE REFERENCE UNITS LAB L501.9410 1.4-4.5 Test Normal T7 (FTI) not performed LAB L501.9210 30-39 % High 41 T3 UPTAKE Performed By: #### L500.4050, L501.9520, L501.9195, L506.0400 #### [facility] [address] [place], [address] T4 FREE DIRECT Collected: 09/03/2018 Status: F Source: [place] 2:23 PM [facility] REPOSITORY Order Comment: DR SANDOVAL ADDED K4LCTADV FT4 TYPE CODE TESTS RESULT OUT OF REFERENCE UNITS RANGE LAB L506.0400 0.76-1.46 ng/dL High T4 FREE 1.75 DIRECT Performed By: #### L500.4050, L501.9520, L501.9195, L506.0400 #### [facility] [address] [place], [address] OR Observed: 09/01/2018 Status: UNK Source: [facility] 11:46 AM [facility] REPOSITORY DATE OF SERVICE: 09/01/2018 PREOPERATIVE DIAGNOSES: 1. Suspected dental caries. 2. Periodontal disease. POSTOPERATIVE DIAGNOSES: 1. Chronic generalized moderate periodontitis. 2. Dental caries. OPERATION: 1. Full mouth exam. Full mouth series radiographs. 2. Oral surgery, extracted numbers 8, 9 and 10. 3. Prophy and fluoride. SURGEONS: 1. David Roblero DMD, attending. 2. Nain Retana DDS, resident. GANG RIDER ANESTHESIOLOGIST: DO SHAYY Field NURSE: Jennifer; PRATEEK; Sayra; scrub nurse, Estrada. [...] then, prepped and draped in the usual [facility] fashion. Following the timeout procedure, orotracheal intubation for general anesthesia was achieved. Clinical and radiographic examinations were performed and interpreted. Generalized chronic moderate periodontitis. A small fibroma was noted on the lower left lip, 4 mm x 1.5 [facility] PATIENT NAME: SHADI GARDUNO [address] [facility] [address] MEDICAL REC #: [id number] [place] [address] ADMIT DATE: DISCHARGE DATE: OPERATIVE REPORT ATTENDING [...] Return in 1-2 years for followup recall. Nian Retana DDS, (R), dictating for David Roblero DMD [id number] [facility] File#: [id number] Verified/Reviewed by 09/04/18 0843 MECHELLE [facility] PATIENT NAME: SHADI GARDUNO [address] [facility] [address] MEDICAL REC #: [id number] [place] [address] ADMIT DATE: DISCHARGE DATE: OPERATIVE REPORT ATTENDING PHY: David Roblero DMD CBC W/DIFF, AUTOMATED Collected: 08/05/2018 Status: F Source: [place] 12:09 PM [facility] REPOSITORY TYPE CODE TESTS RESULT OUT [...] Lymph 1.96 Performed By: #### L100.0100 #### [facility] [place], [address] BASIC METABOLIC Collected: 08/05/2018 Status: F Source: [place] PROFILE (BMP) 12:09 PM [facility] REPOSITORY TYPE CODE TESTS RESULT OUT [...] GAP 7 Performed By: #### L500.2500 #### [facility] [address] [place], [address] EMERGENCY DEPARTMENT Observed: 07/18/2018 Status: F Source: [place] SUMMARY 11:46 PM [facility] REPOSITORY [facility] Medical Records Department [address] [place] [address] Emergency Department Summary 07/18/18 2340 MR#: [id number] Acct: [id number] Name: SHADI GARDUNO Rep #: [id number] : 1945 73 From: Jaswant Gill MD [...] Prerenal azotemia/dehydration This note was generated with [employer] dictation software. It may contain incorrect words, spelling, [...] problems, contact your Primary Care Provider. Call [facility] ([phone]) or report to the closest Emergency Room. Call 911 if necessary. 07/18/18 2346 <Electronically signed by Jaswant Gill MD> Date Jaswant Gill MD Cosigner Signature (If Indicated): Date CC: Giovany Sandoval MD Observed: 07/18/2018 Status: F Source: [place] STOOL OCCULT BLOOD 10:58 PM [facility] REPOSITORY STOB iFOB Occult Blood Negative Performed By: #### M100.7900 #### [facility] [address] [place], [address] CBC W/DIFF, AUTOMATED Collected: 07/18/2018 Status: C Source: [place] 10:10 PM [facility] REPOSITORY TYPE CODE TESTS RESULT OUT [...] January shandra Performed By: #### L100.0100 #### [facility] [address] [place], [place], [address] BASIC METABOLIC Collected: 07/18/2018 Status: F Source: [place] PROFILE ([facility]) 10:10 PM [facility] REPOSITORY TYPE CODE TESTS RESULT OUT [...] GAP 4 Performed By: #### L500.2500 #### [facility] [address] [place], [address] CHEST PA AND LATERAL Observed: 07/18/2018 Status: F Source: [place] 9:58 PM [facility] REPOSITORY [facility] Imaging Services [address] [place] [address] Chest PA and Lateral MR#: [id number] Acct: [id number] Name: SHADI GARDUNO Rep #: [id number] : 1945 F 73 From: Rodney Mosley DO PCP: Ayush CASTANO,C4M Status: REG ER Study: Chest PA and Lateral Date of Exam: 07/18/18 Exam# [id number] Ordering Dr: Jaswant Gill MD STUDY: X-RAY [...] Rodney Mosley DO at 22:45 EDT Tel [phone], Service support , CC: Giovany Sandoval MD; Jaswant Gill MD Manager General: Signed SURGICAL PATHOLOGY Observed: 07/15/2018 Status: C Source: [place] 10:00 AM CLINIC OTHER CAMPUS REPOSITORY ADDENDUM PRESENT Specimen originated from [facility] Specimen #: [id number] Submitting Physician: Dionicio Anguiano M.D. FINAL DIAGNOSIS [...] performed on block B1 and are negative. DONITA/antonette 07/16/2018 Laboratory Developed Test (LDT) Disclaimer: Positive and negative controls stain appropriately. Performance characteristics of immunohistochemical, immunofluorescent and chromogenic in-situ hybridization tests have been determined by [facility] [place] [facility]) in a manner consistent with CLIA requirements. One or more of these tests have not been cleared or approved by the FDA. [facility] is regulated under CLIA as qualified to [...] in one cassette. Gross examination performed at [facility], [address] [place] [address] 07/15/2018 1:59:46 PM Date of Report: 07/16/2018 Date of Procedure: 07/15/2018 Date of Receipt: 07/15/2018 Submitted by: Dionicio Anguiano M.D. Location: [facility] Diagnostic interpretation performed at [facility], [address] [place] [address]. Performed By: #### PATHS #### [place] [address] [phone] PT ED Observed: 07/15/2018 Status: COMPLETED Source: [place] 9:54 AM CLINIC OTHER CAMPUS REPOSITORY HNO ID: [id number] Author: Tara RamirezRn) TIM Syed Service: Nursing Author Type: Registered [...] Signed By: Tara Syed RN In Department: [facility] ENDOSCOPY NURSING PROG Observed: 07/15/2018 Status: COMPLETED Source: [place] 9:[address] [facility] REPOSITORY HNO ID: [id number] Author: Tara (Rn) TIM Syed Service: Nursing [...] ANES POST Observed: 07/15/2018 Status: COMPLETED Source: [place] 9:[address] [facility] REPOSITORY HNO ID: [id number] Author: Nish Wisdom Service: Anesthesiology Author Type: Anesthesiologist Type: Anesthesia PostOp Filed: 07/15/2018 9:35 AM Note Text: POST ANESTHESIA EVALUATION NOTE SERVICE DATE: 07/15/2018 SERVICE TIME:9 : 1945 Vitals: 07/15/18 0736 07/15/1885107/15/18929 Temp: 37 ?C (98.6 ?F) 36.2 ?C (97.2 ?F) 36.5 ?C (97.7 ?F) 07/15/1885107/15/18 0907/15/1891407/15/18929 BP: 95/55 104/57 105/59 104/57 07/15/18 0852 07/15/18 0900 07/15/1891407/15/18929 Pulse: 69 71 69 65 07/15/18 0852 07/15/18 0900 07/15/18914 07/15/18929 Resp: 16 16 16 16 07/15/18 0736 [...] Shadi Garduno DATE: July 15, 2018 TIME: 9:35 AM PAGER/CONTACT #: anesthesia BRIEF OP NOT Observed: 07/15/2018 Status: COMPLETED Source: [place] 8:[address] [facility] REPOSITORY HNO ID: [id number] Author: Dionicio Anguiano Service: (none) Author Type: Physician Type: Brief Op Note Filed: 07/15/2018 8:51 AM Note Text: BRIEF OPERATIVE / PROCEDURE NOTE LOG ID: [id number] SURGERY/PROCEDURE DATE: 07/15/2018 INCISION/PROCEDURE START TIME: 8:36 AM INCISION CLOSE/PROCEDURE END TIME: 8:47 AM SURGEON(S)/PROCEDURALIST(S) AND GANG RIDER(S): Surgeon(s) and Role: * Dionicio Anguiano - Primary No Additional Staff SURGERY/PROCEDURE(S): egd wbx and polypectomy ANESTHESIA: Monitored Anesthesia Care FINDINGS: gastric ulcer/gastric polyps/hiatal hernia ESTIMATED BLOOD LOSS: 0 ml SPECIMENS: gastric/ge jnx COMPLICATIONS: None PRE-OP/PRE-PROCEDURE DIAGNOSIS: abnormal gastric appearance on ct POST-OP/POST-PROCEDURE DIAGNOSIS: as above SIGNATURE: Dionicio Anguiano MD PATIENT NAME: Shadi Garduno DATE: July 15, 2018 TIME: 8:49 AM PAGER/CONTACT #: [phone] PT ED Observed: 07/15/2018 Status: COMPLETED Source: [place] 7:[address] [facility] REPOSITORY HNO ID: [id number] Author: Sandra RamirezRn) TIM Francis Service: (none) Author Type: Registered Nurse Type: [...] Signed By: Sandra Francis RN In Department: [facility] ENDOSCOPY ANES PREOP Observed: 07/15/2018 Status: COMPLETED Source: [place] 7:29 AM CLINIC OTHER CAMPUS REPOSITORY HNO ID: [id number] Author: Nish Wisdom Service: Anesthesiology Author Type: [...] [facility] outpt - EGD W/O [facility] SPECIMEN W/BX 04/25/09 - EXCISION, BREAST LESION [...] July 15, 2018 TIME: 7:29 AM CSN: [id number] OPERATIVE NO Observed: 07/15/2018 Status: COMPLETED Source: [place] 12:00 AM [facility] OTHER CAMPUS REPOSITORY HNO ID: [id number] Author: Dionicio Anguiano Service: (none) Author Type: Physician Type: Operative Report Filed: 07/17/2018 12:24 PM Note Text: [facility] - Operative Report SHADI GARDUNO : 1945 AGE: 73. SEX: F PATIENT TYPE: A HOSP SVC: [facility] LOCATION: [facility] ATTENDING PHYSICIAN: MARIXA NUMBER: [id number] DATE OF SURGERY/PROCEDURE: 07/15/2018 INCISION/PROCEDURE START TIME: Scope in 08:36. INCISION CLOSE/PROCEDURE END TIME: Scope out 08:47. PREOPERATIVE DIAGNOSIS: As below POSTOPERATIVE DIAGNOSIS: As below SURGEON: Dionicio Anguiano M.D. GANG RIDER: Carmen Fowler. SURGERY/PROCEDURE: Esophagogastroduodenoscopy with biopsy and polypectomy. ANESTHESIA: mac LOG ID: [id number]. CONSENT: The patient's guardian was described the [...] healing of gastric ulcers. Dionicio Anguiano M.D. MINA:[id number] /[phone] cc: * Dr. Mag Sandoval HISTORY PHYSICAL Observed: 07/14/2018 Status: COMPLETED Source: [place] 1:45 PM CLINIC OTHER CAMPUS REPOSITORY HNO ID: [id number] Author: Yaritza Lucero Service: (none) Author Type: [...] with trouble with GERD. 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 Hard to obtain health history as the patient is mostly non-verbal. Most health history is obtained from the chart. Head Of English states patient went to the doctor because [...] Laterality Date - COLONOSCOP W/ OR W/O [facility] SPEC 10/05/15 Colonoscopy [facility] outpt - EGD W/O [facility] SPECIMEN W/BX 04/25/09 - EXCISION, BREAST LESION [...] History Narrative Goes by Franchesca Lives in intermediate Attends day program Prior to Admission medications [...] Cardiovascular: Positive for: Hypertension on Rx. Denies CP,HI, DVT, PE, lightheaded, dizziness, palpitations/arrhythmias, CAD, CHF or HLD. GI: See HPI. : No history of dysuria, frequency or incontinence,, stones or chronic kidney disease, No difficulty urinating, nocturia > 1 time per night or hematuria. 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: Negative for abnormal vaginal bleeding, abnormal [...] #: HOSP Observed: 06/24/2018 Status: COMPLETED Source: [place] 12:00 AM CLINIC OTHER CAMPUS REPOSITORY Patient:Shadi Garduno MRN: <[id number]> Height:5' 2[unable to obtain[(1.575 m) Weight:111 lb [...] Abnormality of gait [R26.9] Other physical therapy [RDZ1799] Osteoporosis [M81.0] Essential hypertension [I10] Allergies: Cats Date Verified: 07/15/18 Lab Values No results within the last 30 days for the following basenames: K,HCT No progress notes entered within the past 30 days STOOL Observed: 06/11/2018 Status: F Source: [place] LACTOFERRIN/WBC 12:16 PM [facility] REPOSITORY Stool Lacto/WBC Normal Reference Range = Negative Fecal WBC Lactoferrin Positive: Fecal WBC Lactoferrin present Performed By: #### M100.0605, M100.7900, M100.6796, M100.637 #### [facility] [address] [place], [place], [id number] Observed: 06/11/2018 Status: F Source: [place]DA STOOL OCCULT BLOOD 12:16 PM [facility] IFOB REPOSITORY STOB iFOB Occult Blood Positive ORGANISM 1: OCCULT BLOOD POSITIVE Performed By: #### M100.0605, M100.7900, M100.6796, M100.637 #### [facility] [address] [place], [place], [address] Observed: 06/11/2018 Status: F Source: LINDA CDIFF (MOLECULAR) 12:16 PM [facility] REPOSITORY Cdiff-Molecular Normal Reference Range = Negative C. Diff DNA Negative- No toxigenic C. Diff DNA Detected NAAT METHOD Testing was performed using nucleic acid amplification Performed By: #### M100.0605, M100.7900, M100.6796, M100.637 #### [facility] [address] [place], [place], [address] Observed: 06/11/2018 Status: F Source: [place] ENTERIC PATHOGEN 12:16 PM [facility] PANEL STOOL REPOSITORY EP PANEL STOOL Normal [...] By: #### M100.0605, M100.7900, M100.6796, M100.637 #### [facility] [address] [place], [place], [address] Observed: 06/10/2018 Status: F Source: [place] RESPIRATORY PANEL 5:12 PM [facility] MOLECULAR REPOSITORY RP PANEL Normal Reference Range [...] acid amplification Performed By: #### M100.638 #### [facility] [address] [place], [place], [address] ABDOMEN/PELVIS WITH Observed: 06/10/2018 Status: F Source: [place] CONTRAST 4:52 PM [facility] REPOSITORY [facility] Imaging Services [address] [place] [address] Abdomen/Pelvis WITH Contrast MR#: [id number] Acct: [id number] Name: SHADI GARDUNO Rep #: [id number] : 1945 F 72 From: Terry Tellez DO PCP: Giovany Sandoval MD, Chi Status: REG CLI Study: Abdomen/Pelvis WITH Contrast Date of Exam: 06/10/18 Exam# [id number] Ordering Dr: Giovany Sandoval MD STUDY: CT [...] Terry Tellez DO at 21:39 EDT Tel [phone], Service support , CC: Giovany Sandoval MD Manager General: Signed CBC W/DIFF, AUTOMATED Collected: 06/10/2018 Status: F Source: LINDA 2:13 PM [facility] REPOSITORY TYPE CODE TESTS RESULT OUT [...] Lymph 2.34 Performed By: #### L100.0100 #### [facility] [address] [place], [place], [id number] COMPREHENSIVE METABOLIC Collected: 06/10/2018 Status: F Source: [facility] 2:13 PM [facility] REPOSITORY TYPE CODE TESTS RESULT OUT [...] GAP 5 Performed By: #### L500.4050 #### [facility] [address] [facility] [place], [address] CBC W/DIFF, AUTOMATED Collected: 03/05/2018 Status: F Source: [place] 10:04 AM [facility] REPOSITORY TYPE CODE TESTS RESULT OUT [...] Lymph 1.94 Performed By: #### L100.0100 #### [facility] [place], [address] VITAMIN D,25 HYDROXY Collected: 03/05/2018 Status: F Source: LINDA 10:04 AM [facility] REPOSITORY TYPE CODE TESTS RESULT OUT OF REFERENCE UNITS RANGE LAB L506.1000 29.95-100.01 ng/mL Low Vitamin D 18.6 25-OH Result Comment: Vitamin D 25(OH) Status Range Deficiency <20 ng/mL (50nmol/L) Insuffciency 20 - 30 ng/mL (50 - 75 nmol/L) Sufficiency 30 - 100 ng/mL (75 - 250 nmol/L) Toxicity >100 ng/mL (>250 nmol/L) Performed By: #### L506.1000 #### [facility] [place], [address] COMPREHENSIVE METABOLIC Collected: 03/05/2018 Status: F Source: LINDA HEADLEY 10:04 AM [facility] REPOSITORY TYPE CODE TESTS RESULT OUT [...] 7 Performed By: #### L500.4050, L501.9520 #### [facility] [address] [facility] [place], [place], [address] THYROID STIM HORMONE Collected: 03/05/2018 Status: F Source: LINDA (TSH) 10:04 AM [facility] REPOSITORY TYPE CODE TESTS RESULT OUT OF RANGE REFERENCE UNITS LAB L501.9520 0.358-3.74 uIU/mL Normal TSH 0.47 Performed By: #### L500.4050, L501.9520 #### [facility] [address] [place], [address] HEPATITIS C ANTIBODIES Collected: 03/05/2018 Status: F Source: LINDA 10:04 AM [facility] REPOSITORY TYPE CODE TESTS RESULT OUT OF RANGE REFERENCE UNITS LAB L3100.0650 0.0-0.9 s/co ratio Normal HEP C AB <0.1 Result Comment: Negative: < 0.8 Indeterminate: 0.8 - 0.9 Positive: > 0.9 The CDC recommends that a positive HCV antibody result be followed up with a HCV Nucleic Acid Amplification test (655398). Performed at: - [facility] [address] [id number] Animal Stunner: Artis Gabriel PhD, Phone: [phone] Performed By: #### L3100.0625 #### [facility] (refer to report for specific site) refer to report for address and phone number ABD INC DECUB Observed: 02/21/2018 Status: F Source: LINDA AND/OR ERECT 10:50 AM [facility] REPOSITORY [facility] Imaging Services [address] [place] [address] Abd Inc Decub and/or Erect MR#: [id number] Acct: [id number] Name: FARHADSHADI J Rep #: [id number] : 1945 F 72 From: Izabella Palm PCP: Ayush CASTANO,Giovany Zimmerman Status: REG CLI Study: Abd Inc Decub and/or Erect Date of Exam: 02/21/18 Exam# [id number] Ordering Dr: Giovany Sandoval MD STUDY: X-RAY [...] Service support , CC: Giovany Sandoval MD Manager General: Signed STOOL Observed: 11/30/2017 Status: F Source: LINDA LACTOFERRIN/WBC 10:40 AM [facility] REPOSITORY Stool Lacto/WBC Fecal WBC Lactoferrin Negative: No Fecal WBC Lactoferrin present Performed By: #### M100.0605, M100.6796, M100.7900, M100.637 #### [facility] [address] [facility] [address] [place], [place], [address] Observed: 11/30/2017 Status: F Source: [place]DA CDIFF (MOLECULAR) 10:40 AM [facility] REPOSITORY Cdiff-Molecular C. Diff DNA Negative- No toxigenic C. Diff DNA Detected NAAT METHOD Testing was performed using nucleic acid amplification Performed By: #### M100.0605, M100.6796, M100.7900, M100.637 #### [facility] [address] [place], [address] Observed: 11/30/2017 Status: F Source: [place] STOOL OCCULT BLOOD 10:40 AM [facility] IFOB REPOSITORY STOB iFOB Occult Blood Negative Performed By: #### M100.0605, M100.6796, M100.7900, M100.637 #### [facility] [address] [place], [address] Observed: 11/30/2017 Status: F Source: [place] ENTERIC PATHOGEN 10:40 AM [facility] PANEL STOOL REPOSITORY EP PANEL STOOL Normal [...] By: #### M100.0605, M100.6796, M100.7900, M100.637 #### [facility] [address] [place], [address] Observed: 11/30/2017 Status: F Source: LINDA OVA AND PARASITES 10:40 AM [facility] REPOSITORY O + P OVA AND PARASITES EXAM, ROUTINE These results were obtained using wet preparation(s) and trichrome stained smear. This test does not include testing for Crytosporidium parvum, Cyclospora, or Microsporidia. TESTING PERFORMED AT [facility]. ORIGINAL REPORT ON FILE IN LAB CONTAINS ADDITIONAL TEST SITE INFORMATION. Ova/Parasite Exam NO OVA, CYSTS, OR PARASITES FOUND. Performed By: #### M600.5000 #### [facility] [address] [place], [place], [address] URINALYSIS, COMPLETE Collected: 11/18/2017 Status: F Source: LINDA 8:00 AM [facility] REPOSITORY Order Comment: How was Urine Obtained? [...] URINE SEEN Performed By: #### L400.0001 #### [facility] [address] [place], [address] Observed: 11/18/2017 Status: F Source: LINDA CULTURE, URINE 8:00 AM [facility] REPOSITORY Urine Culture ORGANISM 1: Mixed Gram Positive Organisms Vancleave Count 1000-10,000 MIX CULTURE Mixed contaminants. Submit a new specimen if indicated. Performed By: #### M100.0650 #### [facility] [address] [place], [address] Observed: 11/14/2017 Status: F Source: [place] RESPIRATORY PANEL 1:25 PM [facility] MOLECULAR REPOSITORY RP PANEL Normal Reference Range [...] acid amplification Performed By: #### M100.638 #### [facility] [address] [place], [address] ABD INC DECUB Observed: 11/14/2017 Status: F Source: LINDA AND/OR ERECT 1:24 PM [facility] REPOSITORY [facility] Imaging Services [address] [place] [address] [place] [address] Abd Inc Decub and/or Erect MR#: [id number] Acct: [id number] Name: SHADI GARDUNO Rep #: [id number] : 1945 F 72 From: Summer Benton MD PCP: Ayush CASTANO,Giovany Zimmerman Status: REG CLI Study: Abd Inc Decub and/or Erect Date of Exam: 11/14/17 Exam# [id number] Ordering Dr: Giovany Sandoval MD STUDY: X-RAY [...] Service support , CC: Giovany Sandoval MD Manager General: Signed ALLERGIES ALLERGIES DATE TYPE / CODE NAME / CODE REACTION SEVERITY SOURCE 08/29/2017 Drug No Known Unknown [facility] Allergy/4160 Allergies/F00 [facility] 58829(SNOMED 0243371(RXNOR Repository CT) M) 02/12/2008 Animal/40019 CATS [facility] 4006(SNOMED Other [place]) Repository ENCOUNTERS ENCOUNTERS ADMIT/DISCHARGE ACCOUNT ADMITTING ENCOUNTER LOCATION SOURCE NUMBER CLASS 10/15/2018 [id number] [facility] ing:POLAB3 Repository 10/15/2018 [id number] Ambulatory [facility] ing:RAD Repository 09/03/2018 [id number] Ambulatory [facility] ing:POLAB3 Repository 09/01/2018 [id number] Inpatient [facility] Unity g:H.SD Repository 08/25/2018 [id number] Ambulatory [facility] Unity g:H.PAT Repository 08/05/2018 [id number] Ambulatory [facility] ing:POLAB3 Repository 07/18/2018/07/19/20 [id number] Emergency [address] ing:ED Repository 07/15/2018 [id number] DIONICIO ANGUIANO Ambulatory [facility] Other [place] Repository 07/14/2018/07/14/[id number] Repository 06/11/2018 [id number] Ambulatory [facility] Hospital ing:POLAB3 Repository 06/10/2018 [id number] Ambulatory [facility] ing:CT Repository 04/02/2018 [id number] Ambulatory [facility] ing:OPBI Repository 03/06/2018/03/06/20 [id number] Ambulatory BMSBuilding:B [place] [facility] Repository 03/05/2018 [id number] Ambulatory [facility] ing:POLAB3 Repository 02/21/2018 [id number] Ambulatory [facility] ing:RAD Repository 11/30/2017 [id number] [facility] ing:LABSPEC Repository 11/18/2017 [id number] Ambulatory [facility] ing:LABSPEC Repository 11/14/2017 [id number] Ambulatory [facility] ing:RAD Repository PAYERS PAYERS ENCOUNTER GUARANTOR PAYER SUBSCRIBER SOURCE 10/15/2018 SHADI Ovalle Primary SHADI Phanoster [id number] Insurance:MEDICARE SMOTHERMANDOB: [facility] PART A [address] Number: Repository [address]Qfy: 330 [id number] [phone] () Date:2018-09-18 10/15/2018 Secondary SHADI Mckeon Insurance:MEDICAIDPol SMOTHERMANDOB: [facility] Number: [id number] Hospital [id number] Repository Date:2018-09-18 10/15/2018 Tertiary NOT GIVENUNK [place] Insurance:SELF PAY [facility] Number: Effective Repository Date:2018-09-18 10/15/2018 SHADI Ovalle Primary SHADI Phanoster [id number] Insurance:MEDICARE SMOTHERMANDOB: [facility] PART A [facility] [id number] Number: Repository [address]Dmk: 330 [id number] [phone] () Date:2018-10-15 10/15/2018 Secondary SHADI Mckeon Insurance:MEDICAIDPol SMOTHERMANDOB: Community icy Number: [id number] Hospital [id number] Repository Date:2018-10-15 10/15/2018 Tertiary NOT GIVENUNK [place] Insurance:SELF PAY [facility] Number: Effective Repository Date:2018-10-15 09/03/2018 SHADI J Primary SHADI Phanoster [id number] Insurance:MEDICARE SMOTHERMANDOB: Community JENNY PART A [facility] [id number] Number: Repository [address]Yis: 330 [id number] [phone] (HP) Date:2018-09-03 09/03/2018 Secondary SHADI Mckeon Insurance:MEDICAIDPol SMOTHERMANDOB: [facility] icy Number: [id number] Hospital [id number] Repository Date:2018-09-03 09/03/2018 Tertiary NOT GIVENUNK [place] Insurance:SELF PAY [facility] Number: Effective Repository Date:2018-09-03 09/01/2018 SHADI Primary SHADI [facility] Medical [id number] Insurance:MEDICAREPol [facility] ic Number: Repository [place], [place] [id number] [address]Mgo: (330) Date:1977-08-23P O [phone] () [address] [place]F545[place]CKDTTUX[place] [address]HL: 09/01/2018 Secondary [facility] Medical Insurance:MEDICAID [facility] Number: Repository [id number] Date:[id number] [address] [address]XF: 08/05/2018 SHADI Ovalle Primary SHADI Phanoster [id number] Insurance:MEDICARE SMOTHERMANDOB: Community JENNY PART A [facility] [id number] Number: Repository [address]Hxo: 330 [id number] [phone] (HP) Date:2018-08-05 08/05/2018 Secondary SHADI Ovalle [place] Insurance:MEDICAIDPol SMOTHERMANDOB: Community icy Number: [id number] Hospital [id number] Repository Date:2018-08-05 08/05/2018 Tertiary NOT GIVENUNK [place] Insurance:SELF PAY [facility] Number: Effective Repository Date:2018-08-05 07/18/2018 SHADI Ovalle Primary SHADI Mckeon [id number] Insurance:MEDICARE SMOTHERMANDOB: Community JENNY PART A [facility] [id number] [place] Number: Repository [address]Crg: 330 [id number] [phone] (HP) Date:2018-07-18 07/18/2018 Secondary SHADI Ovalle [place] Insurance:MEDICAIDPol SMOTHERMANDOB: [facility] icy Number: [id number] Hospital [id number] Repository Date:2018-07-18 07/18/2018 Tertiary NOT GIVENUNK [place] Insurance:SELF PAY [facility] Number: Effective Repository Date:2018-07-18 06/11/2018 SHADI Ovalle Primary SHADI Mckeon [id number] Insurance:MEDICARE SMOTHERMANDOB: Community JENNY PART A [facility] [id number]. Francis Hospital [place] Number: Repository [address]Igt: 330 [id number] [phone] (HP) Date:2018-06-11 06/11/2018 Secondary SHADI Ovalle [place] Insurance:MEDICAIDPol SMOTHERMANDOB: [facility] icy Number: [id number] Hospital [id number] Repository Date:2018-06-11 06/11/2018 Tertiary NOT GIVENUNK [place] Insurance:SELF PAY [facility] Number: Effective Repository Date:2018-06-11 06/10/2018 SHADI Ovalle Primary SHADI Mckeon [id number] Insurance:MEDICARE SMOTHERMANDOB: Community JENNY PART A [facility] [id number]. Francis [facility] [place] Number: Repository [address]Jtq: 330 [id number] [phone] (HP) Date:2018-06-10 06/10/2018 Secondary SHADI Mckeon Insurance:MEDICAIDPol SMOTHERMANDOB: Community icy Number: [id number] Hospital [id number] Repository Date:2018-06-10 06/10/2018 Tertiary NOT GIVENUNK [place] Insurance:SELF PAY [facility] Number: Effective Repository Date:2018-06-10 04/02/2018 SHADI Ovalle Primary SHADI Mckeon [id number] Insurance:MEDICARE SMOTHERMANDOB: Community JENNY PART A [facility] [id number] Number: Repository [address]Wlq: [phone] [id number] [phone] (HP) Date:2018-03-12 04/02/2018 Secondary SHADI Mckeon Insurance:MEDICAIDPol SMOTHERMANDOB: [facility] icy Number: [id number] Hospital [id number] Repository Date:2018-03-12 04/02/2018 Tertiary NOT GIVENUNK [place] Insurance:SELF PAY [facility] Number: Effective Repository Date:2018-03-12 03/06/2018 SHADI Ovalle Primary SHADI Mckeon [id number] Insurance:MEDICARE SMOTHERMANDOB: Community JENNY PART A [facility] [id number] Number: Repository [address]Spv: [id number] [phone] Date:2018-03-06 0-4 (HP) 03/06/2018 Secondary SHADI Ovalle [place] Insurance:MEDICAIDPol SMOTHERMANDOB: [facility] icy Number: [id number] Hospital [id number] Repository Date:2018-03-06 03/06/2018 Tertiary NOT GIVENUNK [place] Insurance:SELF PAY [facility] Number: Effective Repository Date:2018-03-06 03/05/2018 Shadi Ovalle Primary Shadi Mckeon [id number] Insurance:MEDICARE SmothermanDOB: Community JENNY PART A [facility] [id number] Number: Repository [address]Rsl: [id number] [phone] Date:2018-03-05 0-4 (HP) 03/05/2018 Secondary Shadi Ovalle [place] Insurance:MEDICAIDPol SmothermanDOB: Community icy Number: [id number] Hospital [id number] Repository Date:2018-03-05 03/05/2018 Tertiary NOT GIVENUNK [place] Insurance:SELF PAY [facility] Number: Effective Repository Date:2018-03-05 02/21/2018 Shadi Ovalle Primary Shadi Mckeon [id number] Insurance:MEDICARE SmothermanDOB: Community JENNY PART A [facility] [id number]. Francis Hospital [place] Number: Repository [address]Odt: [id number] [phone] Date:2018-02-21 0-4 (HP) 02/21/2018 Secondary Shadi Ovalle [place] Insurance:MEDICAIDPol SmothermanDOB: [facility] icy Number: [id number] Hospital [id number] Repository Date:2018-02-21 02/21/2018 Tertiary NOT GIVENUNK [place] Insurance:SELF PAY [facility] Number: Effective Repository Date:2018-02-21 11/30/2017 Shadi Ovalle Primary Shadi Mckeon [id number] Insurance:MEDICARE SmothermanDOB: Community JENNY PART A [facility] [id number] Number: Repository [address]Qtq: [id number] [phone] Date:2017-11-30 0-4 (HP) 11/30/2017 Secondary Shadi Ovalle [place] Insurance:MEDICAIDPol SmothermanDOB: [facility] icy Number: [id number] Hospital [id number] Repository Date:2017-11-30 11/30/2017 Tertiary NOT GIVENUNK [place] Insurance:SELF PAY [facility] Number: Effective Repository Date:2017-11-30 11/18/2017 Shadi Ovalle Primary Shadi Mckeon [id number] Insurance:MEDICARE SmothermanDOB: Community JENNY PART A [facility] [id number] [place] Number: Repository [address]Bsm: [id number] [phone] Date:2017-11-18 0-4 (HP) 11/18/2017 Secondary Shadi Mckeon Insurance:MEDICAIDPol SmothermanDOB: Community icy Number: [id number] Hospital [id number] Repository Date:2017-11-18 11/18/2017 Tertiary NOT GIVENUNK [place] Insurance:SELF PAY [facility] Number: Effective Repository Date:2017-11-18 11/14/2017 Shadi Ovalle Primary Shadi Mckeon [id number] Insurance:MEDICARE SmothermanDOB: Community JENNY PART A [place] [id number], [place] Number: Repository [address]Ski: [id number] [phone] Date:2017-11-14 0-4 (HP) 11/14/2017 Secondary Shadi Mckeon Insurance:MEDICAIDPol SmothermanDOB: Community icy Number: [id number] Hospital [id number] Repository Date:2017-11-14 11/14/2017 Tertiary NOT GIVENUNK [place] Insurance:SELF PAY [facility] Number: Effective Repository Date:2017-11-14
== END ==
PROVIDERS: Family Provider Family Medicine Geriatric Medicine; PCP Family Medicine Geriatric Medicine; Referring Provider Family Medicine Geriatric Medicine; Visit Provider Family Medicine Geriatric Medicine
DX: K56.41 Fecal impaction (principal)
CPT/HCPCS: 74022

== ENCOUNTER → 2018-10-15 11:31 | Outpatient (CLI) | payer MEDICARE, MEDICAID, SELFPAY ==
[2018-10-15 12:53] LABS: Absolute Lymphocyte Count 2.12 X10^3/ul (0.83-4.51); Absolute Neutrophil Count 2.4 X10^3/uL (2.0-7.7); Basophil# 0.04 X10^3/uL; Basophil% 0.7 % (0-1); Eosinophil# 0.36 X10^3/uL; Eosinophils% 6.2 % (0-5); Hematocrit 38.4 % (37-47); Hemoglobin 11.6 g/dl (12.0-15.0); Lymphocyte # 2.12 X10^3/ul (4.0); Lymphocyte % 36.4 % (19-41); Mean Corp Hgb Conc 30.2 g/gl (32-36); Mean Corpuscular Hgb 27.2 pg (27.0-32.0); Mean Corpuscular Volume 89.9 fL (81-99); Mean Platelet Vol. 11.6 fl (6.2-12.0); Monocyte# 0.86 X10^3/uL; Monocyte% 14.8 % (0-10); Neutrophil # 2.44 X10^3/uL (2.7-7.7); Neutrophil % 41.7 % (47-70); Platelet Count 257 K/mm3 (150-450); RBC Distribution Width CV 13.5 % (11.6-14.6); RBC Distribution Width SD 43.5 fl (35.1-43.9); Red Blood Count 4.27 M/mm3 (4.2-5.4); White Blood Count 5.8 K/mm3 (4.4-11.0)
[2018-10-15 12:58] LABS: POSITIVE COUNT NO; POSITIVE DIFFERENTIAL NO; POSITIVE MORPHOLOGY NO
[2018-10-15 13:03] LABS: Anion Gap 8 (5-15); BUN 27 mg/dL (7-18); BUN/Creat Ratio 25.2 RATIO (10-20); Calcium,Total 9.4 mg/dL (8.5-10.1); Chloride 107 mmol/L (98-107); Creatinine, Serum 1.07 mg/dL (0.55-1.02); EST Glomerular Filtration Rate 54 mL/min (>60); Est Glom Filt Rate - Afr Amer 65 mL/min (>60); Glucose 72 mg/dL (74-106); Potassium 4.3 mmol/L (3.5-5.1); Sodium Level 145 mmol/L (136-145); Thyroid Stim Hormone (TSH) 1.06 uIU/mL (0.358-3.74)
--- OUTSIDE RECORDS SUMMARY | 2018-12-17 09:07 | XMS RPT_ITS ---
:1945 Author Organization OHIP Support Name Relationship Address Phone LEN ELLINGTONYLA Unavailable [address] + [place] [address] R Unavailable Unavailable Unavailable RAKEL ESTRADA Unavailable [address] + [place] [address] R Unavailable Unavailable Unavailable ELLINGTON, ESTRADA Unavailable [...] CLARE, JAYLENE Unavailable . + [place] [address] R Unavailable Unavailable Unavailable CLARE, JAYLENE Unavailable Unavailable + R Unavailable Unavailable Unavailable CLARE, JAYLENE Unavailable Unavailable + R Unavailable Unavailable Unavailable CLARE, JAYLENE Unavailable Unavailable + R Unavailable Unavailable Unavailable CLARE, JAYLENE Unavailable Unavailable + R Unavailable Unavailable Unavailable CLARE, JAYLENE Unavailable Unavailable + Care Team Providers Name Role Phone Aysuh, Giovany Chi Attending Unavailable Ayush, Giovany Chi [...] Care Unavailable Ayush, Giovany Chi Referring Unavailable Nurse, Surgery Attending Unavailable Ayush, Giovany [...] E86.0 - Dehydration Ayush, Giovany Chi Active [place] / E86.0(ICD-10) [facility] Repository 10/15/2018 Unknown K56.41 - Fecal Ayush, Giovany Chi Active [place] impaction / Community K56.41(ICD-10) Hospital Repository 09/01/2018 Admitting Unknown / Jen Roblero [facility] Medical diagnosis UNK(Unknown) David Huddleston [facility] Repository 07/15/2018 Active Abnormal findings DIONICIO ANGUIANO Active [place] on diagnostic Clinic Other imaging of other [place] parts of digestive Repository tract / R93.3(ICD-10) 07/14/2018 Active Cerebral palsy, NA Active [place] unspecified / Clinic Other G80.9(ICD-10) [place] Repository 07/14/2018 Active Essential (primary) NA Active [place] hypertension / Clinic Other I10(ICD-10) [place] Repository 04/23/2007 Active Gastro-esophageal NA Active [place] reflux disease Clinic Other without esophagitis [place] / K21.9(ICD-10) Repository 07/14/2018 Active [facility] other [facility] / [place] Z01.818(ICD-10) Repository 06/11/2018 Unknown R19.7 - Diarrhea, Ayush, Giovany Chi Active [place] unspecified / Community R19.7(ICD-10) Hospital Repository 06/11/2018 Unknown R10.9 - Unspecified Ayush, Giovany Chi Active [place] abdominal pain / Community R10.9(ICD-10) Hospital Repository 03/25/2018 Unknown Z12.31 - Encounter Ayush, Giovany Chi Active [place] for screening Community mammogram for Hospital malignant neoplasm Repository of breast / Z12.31(ICD-10) 03/05/2018 Unknown E55.9 - Vitamin D Ayush, Giovany Chi Active [place] deficiency, Community unspecified / Hospital E55.9(ICD-10) Repository 03/05/2018 Unknown R53.83 - Other Ayush, Giovany Chi Active [place] fatigue / Community R53.83(ICD-10) Hospital Repository 03/05/2018 Unknown Z13.89 - Encounter Ayush, Giovany Chi Active [place] for screening for Community other disorder / Hospital Z13.89(ICD-10) Repository 11/18/2017 Unknown N39.0 - Urinary Ayush, Giovany Chi Active [place] tract infection, Community site not specified Hospital / N39.0(ICD-10) Repository PROCEDURES PROCEDURES No Procedure Records FoundRESULTS RESULTS STOOL Observed: 10/15/2018 Status: F Source: [place] LACTOFERRIN/WBC 6:37 PM [facility] REPOSITORY Stool Lacto/WBC Normal Reference Range = Negative Fecal WBC Lactoferrin Negative: No Fecal WBC Lactoferrin present Performed By: #### M100.0605, M100.7900, M100.6796, M100.637 #### [facility] [address] [place], [address] Observed: 10/15/2018 Status: F Source: [place] STOOL OCCULT BLOOD 6:37 PM [facility] IFOB REPOSITORY STOB iFOB Occult Blood Positive ORGANISM 1: OCCULT BLOOD POSITIVE Performed By: #### M100.0605, M100.7900, M100.6796, M100.637 #### [facility] [address], [address] Observed: 10/15/2018 Status: F Source: [place] CDIFF (MOLECULAR) 6:37 PM [facility] REPOSITORY Cdiff-Molecular Normal Reference Range = Negative C. Diff DNA Negative- No toxigenic C. Diff DNA Detected NAAT METHOD Testing was performed using nucleic acid amplification Performed By: #### M100.0605, M100.7900, M100.6796, M100.637 #### [facility] [address] [place], [address] Observed: 10/15/2018 Status: F Source: [place] ENTERIC PATHOGEN 6:37 PM [facility] PANEL STOOL REPOSITORY EP PANEL STOOL [...] M100.0605, M100.7900, M100.6796, M100.637 #### [facility] [address] [place], [address] Observed: 10/15/2018 Status: F Source: [place] OVA AND PARASITES 6:37 PM [facility] REPOSITORY O + P OVA AND [...] PARASITES FOUND. Performed By: #### M600.5000 #### [facility] [address] [place], [address] CBC W/DIFF, AUTOMATED Collected: 10/15/2018 Status: F Source: [place] 11:35 AM [facility] REPOSITORY TYPE CODE TESTS RESULT OUT [...] Lymph 2.12 Performed By: #### L100.0100 #### [facility] [address] [place], [place], [id number] BASIC METABOLIC Collected: 10/15/2018 Status: F Source: [place] PROFILE (BMP) 11:35 AM [facility] REPOSITORY TYPE CODE TESTS RESULT OUT [...] 8 Performed By: #### L500.2500, L501.9520 #### [facility] [address] [place], [address] THYROID STIM HORMONE Collected: 10/15/2018 Status: F Source: [place] (TSH) 11:35 AM [facility] REPOSITORY TYPE CODE TESTS RESULT OUT OF RANGE REFERENCE UNITS LAB L501.9520 0.358-3.74 uIU/mL Normal TSH 1.06 Performed By: #### L500.2500, L501.9520 #### [facility] [address] [place], [address] ACUTE ABDOMEN INC Observed: 10/15/2018 Status: F Source: [place] CHEST 10:04 AM [facility] REPOSITORY [facility] Imaging Services [address] [place] [address] Acute Abdomen Inc Chest MR#: [id number] Acct: [id number] Name: SHADI GARDUNO Rep #: [id number] : 1945 F 73 From: Jake Max DO PCP: Giovany Sandoval MD, Chi Status: REG CLI Study: Acute Abdomen Inc Chest Date of Exam: 10/15/18 Exam# [id number] Ordering Dr: Giovany Sandoval MD STUDY: X-RAY [...] Service support , CC: Giovany Sandoval MD Sales Representative Door To Door: Signed CBC W/DIFF, AUTOMATED Collected: 09/03/2018 Status: F Source: [place] 2:23 PM [facility] REPOSITORY TYPE CODE TESTS RESULT OUT [...] Lymph 2.14 Performed By: #### L100.0100 #### [facility] [address] [place], [place], [address] VITAMIN D,25 HYDROXY Collected: 09/03/2018 Status: F Source: [place] 2:23 PM [facility] REPOSITORY TYPE CODE TESTS RESULT OUT OF RANGE REFERENCE UNITS LAB L506.1000 29.95-100.01 ng/mL Normal Vitamin D 40.5 25-OH Result Comment: Vitamin D 25(OH) Status Range Deficiency <20 ng/mL (50nmol/L) Insuffciency 20 - 30 ng/mL (50 - 75 nmol/L) Sufficiency 30 - 100 ng/mL (75 - 250 nmol/L) Toxicity >100 ng/mL (>250 nmol/L) Performed By: #### L506.1000 #### [facility] [address] [place], [address] COMPREHENSIVE METABOLIC Collected: 09/03/2018 Status: F [facility] PM [facility] REPOSITORY Order Comment: DR SANDOVAL ADDED T1YIIYNJ FT4 TYPE CODE TESTS RESULT OUT OF [...] By: #### L500.4050, L501.9520, L501.9195, L506.0400 #### [facility] [address] [place], [address] THYROID STIM HORMONE Collected: 09/03/2018 Status: F Source: [place] (TSH) 2:23 PM [facility] REPOSITORY Order Comment: DR SANDOVAL ADDED [id number] FT4 TYPE CODE TESTS RESULT OUT OF RANGE REFERENCE UNITS LAB L501.9520 0.358-3.74 uIU/mL Low TSH 0.23 Performed By: #### L500.4050, L501.9520, L501.9195, L506.0400 #### [facility] [address] [place], [place], [id number] T3 UPTAKE Collected: 09/03/2018 Status: F Source: [place] 2:23 PM [facility] REPOSITORY Order Comment: DR SANDOVAL ADDED P4GPADCS FT4 TYPE CODE TESTS RESULT OUT OF RANGE REFERENCE UNITS LAB L501.9410 1.4-4.5 Test Normal T7 (FTI) not performed LAB L501.9210 30-39 % High 41 T3 UPTAKE Performed By: #### L500.4050, L501.9520, L501.9195, L506.0400 #### [facility] [address] [place], [address] T4 FREE DIRECT Collected: 09/03/2018 Status: F Source: [place] 2:23 PM [facility] REPOSITORY Order Comment: DR SANDOVAL ADDED S6RKIQBZ FT4 TYPE CODE TESTS RESULT OUT OF REFERENCE UNITS RANGE LAB L506.0400 0.76-1.46 ng/dL High T4 FREE 1.75 DIRECT Performed By: #### L500.4050, L501.9520, L501.9195, L506.0400 #### [facility] [address] [place], [address] OR Observed: 09/01/2018 Status: UNK Source: [facility] 11:46 AM [facility] REPOSITORY DATE OF SERVICE: 09/01/2018 PREOPERATIVE DIAGNOSES: 1. Suspected dental caries. 2. Periodontal disease. POSTOPERATIVE DIAGNOSES: 1. Chronic generalized moderate periodontitis. 2. Dental caries. OPERATION: 1. Full mouth exam. Full mouth series radiographs. 2. Oral surgery, extracted numbers 8, 9 and 10. 3. Prophy and fluoride. SURGEONS: 1. David Roblero DMD, attending. 2. Nain Retana DDS, resident. INSTRUMENTATION TECHNOLOGIST ANESTHESIOLOGIST: DO SHAYY Field NURSE: Jennifer; PRATEEK; [...] then, prepped and draped in the usual [facility] fashion. Following the timeout procedure, orotracheal intubation for general anesthesia was achieved. Clinical and radiographic examinations were performed and interpreted. Generalized chronic moderate periodontitis. A small fibroma was noted on the lower left lip, 4 mm x 1.5 [facility] PATIENT NAME: SHADI GARDUNO [address] [facility] [address] MEDICAL REC #: [id number] [place] [address] ADMIT DATE: DISCHARGE DATE: OPERATIVE REPORT ATTENDING [...] recall. Nain Retana DDS, (R), dictating for David Roblero DMD [id number] [facility] File#: [id number] Verified/Reviewed by 09/04/18 0843 MECHELLE [facility] PATIENT NAME: SHADI GARDUNO [address] [facility] [address]es MEDICAL REC #: [id number] [place] [address] ADMIT DATE: DISCHARGE DATE: OPERATIVE REPORT ATTENDING PHY: David Roblero DMD CBC W/DIFF, AUTOMATED Collected: 08/05/2018 Status: F Source: [place] 12:09 PM [facility] REPOSITORY TYPE CODE TESTS RESULT OUT [...] Lymph 1.96 Performed By: #### L100.0100 #### [facility] [address] [place], [address] BASIC METABOLIC Collected: 08/05/2018 Status: F Source: [place] PROFILE (BMP) 12:09 PM [facility] REPOSITORY TYPE CODE TESTS RESULT OUT [...] GAP 7 Performed By: #### L500.2500 #### [facility] [address] [place], [address] EMERGENCY DEPARTMENT Observed: 07/18/2018 Status: F Source: [place] SUMMARY 11:46 PM [facility] REPOSITORY [facility] Medical Records Department [address] [place] [address] Emergency Department Summary 07/18/18 2340 MR#: [id number] Acct: [id number] Name: SHADI GARDUNO Rep #: [id number] : 1945 73 From: Jaswant Gill MD [...] Prerenal azotemia/dehydration This note was generated with [employer] dictation software. It may contain incorrect words, [...] problems, contact your Primary Care Provider. Call [facility] ([phone]) or report to the closest Emergency Room. Call 911 if necessary. 07/18/18 2346 <Electronically signed by Jaswant Gill MD> Date Jaswant Gill MD Cosigner Signature (If Indicated): Date CC: Giovany Sandoval MD Observed: 07/18/2018 Status: F Source: [place] STOOL OCCULT BLOOD 10:58 PM [facility] REPOSITORY STOB iFOB Occult Blood Negative Performed By: #### M100.7900 #### [facility] [address] [place], [address] CBC W/DIFF, AUTOMATED Collected: 07/18/2018 Status: C Source: [place] 10:10 PM [facility] REPOSITORY TYPE CODE TESTS RESULT OUT [...] January shandra Performed By: #### L100.0100 #### [facility] [address] [place], [place], [address] BASIC METABOLIC Collected: 07/18/2018 Status: F Source: [place] PROFILE ([facility]) 10:10 PM [facility] REPOSITORY TYPE CODE TESTS RESULT OUT [...] GAP 4 Performed By: #### L500.2500 #### [facility] [address] [place], [address] CHEST PA AND LATERAL Observed: 07/18/2018 Status: F Source: [place] 9:58 PM [facility] REPOSITORY [facility] Imaging Services [address] [place] [address] Chest PA and Lateral MR#: [id number] Acct: [id number] Name: SHADI GARDUNO Rep #: [id number] : 1945 F 73 From: Rodney Mosley DO PCP: Ayush CASTANO,[employer] Status: REG ER Study: Chest PA and Lateral Date of Exam: 07/18/18 Exam# [id number] Ordering Dr: Jaswant Gill MD STUDY: X-RAY [...] Rodney Mosley DO at 22:45 EDT Tel [phone], Service support , CC: Giovany Sandoval MD; Jaswant Gill MD Sales Representative Door To Door: Signed SURGICAL PATHOLOGY Observed: 07/15/2018 Status: C Source: [place] 10:00 AM CLINIC OTHER CAMPUS REPOSITORY ADDENDUM PRESENT Specimen originated from [facility] Specimen #: [id number] Submitting Physician: Dionicio Anguiano M.D. FINAL DIAGNOSIS [...] in-situ hybridization tests have been determined by [facility]'s [facility] Pathology and Laboratory Medicine [facility] ([facility] in a manner consistent with CLIA requirements. One or more of these tests have not been cleared or approved by the FDA. [facility] is regulated under CLIA as qualified to [...] in one cassette. Gross examination performed at [facility], [address] [place] [address] 07/15/2018 1:59:46 PM Date of Report: 07/16/2018 Date of Procedure: 07/15/2018 Date of Receipt: 07/15/2018 Submitted by: Dionicio Anguiano M.D. Location: [facility] Diagnostic interpretation performed at [facility], [address] [place] [address]. Performed By: #### PATHS #### [place] [address] [phone] PT ED Observed: 07/15/2018 Status: COMPLETED Source: [place] 9:54 AM CLINIC OTHER CAMPUS REPOSITORY HNO ID: [id number] Author: Tara RamirezRn) TIM Syed Service: Nursing [...] Signed By: Tara Syed RN In Department: [facility] ENDOSCOPY NURSING PROG Observed: 07/15/2018 Status: COMPLETED Source: [place] 9:53 AM [facility] REPOSITORY HNO ID: [id number] Author: Tara (Rn) TIM Syed Service: Nursing [...] ANES POST Observed: 07/15/2018 Status: COMPLETED Source: [place] 9:35 AM [facility] REPOSITORY HNO ID: [id number] Author: Nish Wisdom Service: Anesthesiology Author Type: [...] OP NOT Observed: 07/15/2018 Status: COMPLETED Source: [place] 8:49 AM [facility] REPOSITORY HNO ID: [id number] Author: Dionicio Anguiano Service: (none) Author Type: Physician Type: Brief Op Note Filed: 07/15/2018 8:51 AM Note Text: BRIEF OPERATIVE / PROCEDURE NOTE LOG ID: [id number] SURGERY/PROCEDURE DATE: 07/15/2018 INCISION/PROCEDURE START TIME: 8:36 AM INCISION CLOSE/PROCEDURE END TIME: 8:47 AM SURGEON(S)/PROCEDURALIST(S) AND INSTRUMENTATION TECHNOLOGIST(S): Surgeon(s) and Role: * Dionicio Anguiano - Primary No Additional Staff SURGERY/PROCEDURE(S): egd wbx and polypectomy ANESTHESIA: Monitored Anesthesia Care FINDINGS: gastric ulcer/gastric polyps/hiatal hernia ESTIMATED BLOOD LOSS: 0 ml SPECIMENS: gastric/ge jnx COMPLICATIONS: None PRE-OP/PRE-PROCEDURE DIAGNOSIS: abnormal gastric appearance on ct POST-OP/POST-PROCEDURE DIAGNOSIS: as above SIGNATURE: Dionicio Anguiano MD PATIENT NAME: Shadi Garduno DATE: July 15, 2018 TIME: 8:49 AM PAGER/CONTACT #: [phone] PT ED Observed: 07/15/2018 Status: COMPLETED Source: [place] 7:35 AM [facility] REPOSITORY HNO ID: [id number] Author: Sandra RamirezRn) TIM Francis Service: (none) [...] Signed By: Sandra Francis RN In Department: [facility] ENDOSCOPY ANES PREOP Observed: 07/15/2018 Status: COMPLETED Source: [place] 7:29 AM CLINIC OTHER CAMPUS REPOSITORY HNO ID: [id number] Author: Nish Wisdom Service: Anesthesiology Author Type: [...] Laterality Date - [facility] outpt - EGD W/O [facility] SPECIMEN W/BX 04/25/09 - EXCISION, BREAST LESION [...] July 15, 2018 TIME: 7:29 AM CSN: [id number] OPERATIVE NO Observed: 07/15/2018 Status: COMPLETED Source: [place] 12:00 AM [facility] OTHER CAMPUS REPOSITORY HNO ID: [id number] Author: Dionicio Anguiano Service: (none) Author Type: Physician Type: Operative Report Filed: 07/17/2018 12:24 PM Note Text: [facility] - Operative Report SHADI GARDUNO : 1945 AGE: 73. SEX: F PATIENT TYPE: A HOSP SVC: MASSI[facility] LOCATION: [facility] ATTENDING PHYSICIAN: MARIXA NUMBER: [id number] DATE OF SURGERY/PROCEDURE: 07/15/2018 INCISION/PROCEDURE START TIME: Scope in 08:36. INCISION CLOSE/PROCEDURE END TIME: Scope out 08:47. PREOPERATIVE DIAGNOSIS: As below POSTOPERATIVE DIAGNOSIS: As below SURGEON: Dionicio Anguiano M.D. INSTRUMENTATION TECHNOLOGIST: Carmen Fowler. SURGERY/PROCEDURE: Esophagogastroduodenoscopy with biopsy and polypectomy. ANESTHESIA: mac LOG ID: [id number]. CONSENT: The patient's guardian was described the [...] healing of gastric ulcers. Dionicio Anguiano M.D. MINA:[id number] /[phone] cc: * Dr. Mag Sandoval HISTORY PHYSICAL Observed: 07/14/2018 Status: COMPLETED Source: [place] 1:45 PM CLINIC OTHER CAMPUS REPOSITORY HNO ID: [id number] Author: Yaritza Lucero Service: (none) Author Type: Nurse Practitioner Type: HANDP Filed: 07/14/2018 2:23 PM Note Text: HISTORY AND PHYSICAL EXAMINATION SERVICE DATE: 07/14/2018 SERVICE TIME: 1:45 PM PRIMARY CARE PHYSICIAN: Giovany Sandoval MD REASON FOR VISIT: Shadi Garduno is a 73 year old female who is scheduled for EGD at the request of Dr. Doinicio Anguiano for consultation. My final recommendation will [...] with trouble with GERD. 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 Hard to obtain health history as the patient is mostly non-verbal. Most health history is obtained from the chart. Production Helper states patient went to the doctor because [...] Laterality Date - COLONOSCOP W/ OR W/O [facility] SPEC 10/05/15 Colonoscopy [facility] outpt - EGD W/O [facility] SPECIMEN W/BX 04/25/09 - EXCISION, BREAST LESION [...] History Narrative Goes by [facility] Lives in skilled nursing Attends day program Prior to Admission medications [...] Cardiovascular: Positive for: Hypertension on Rx. Denies CP,OR, DVT, PE, lightheaded, dizziness, palpitations/arrhythmias, CAD, CHF or HLD. GI: See HPI. : No history of dysuria, frequency or incontinence,, stones or chronic kidney disease, No difficulty urinating, nocturia > 1 time per night or hematuria. HISTOLOGIC TECHNICIAN: Negative for abnormal vaginal bleeding, abnormal vaginal [...] #: HOSP Observed: 06/24/2018 Status: COMPLETED Source: [place] 12:00 AM CLINIC OTHER CAMPUS REPOSITORY Patient:Shadi Garduno MRN: <[id number]> Height:5' 2[unable to obtain[(1.575 m) Weight:111 lb [...] Abnormality of gait [R26.9] Other physical therapy [[id number]] Osteoporosis [M81.0] Essential hypertension [I10] Allergies: Cats Date Verified: 07/15/18 Lab Values No results within the last 30 days for the following basenames: K,HCT No progress notes entered within the past 30 days STOOL Observed: 06/11/2018 Status: F Source: [place] LACTOFERRIN/WBC 12:16 PM [facility] REPOSITORY Stool Lacto/WBC Normal Reference Range = Negative Fecal WBC Lactoferrin Positive: Fecal WBC Lactoferrin present Performed By: #### M100.0605, M100.7900, M100.6796, M100.637 #### [facility] [address] [place], [place], [id number] Observed: 06/11/2018 Status: F Source: [place] STOOL OCCULT BLOOD 12:16 PM [facility] REPOSITORY STOB iFOB Occult Blood Positive ORGANISM 1: OCCULT BLOOD POSITIVE Performed By: #### M100.0605, M100.7900, M100.6796, M100.637 #### [facility] [address] [place], [place], [address] Observed: 06/11/2018 Status: F Source: [place] CDIFF (MOLECULAR) 12:16 PM [facility] REPOSITORY Cdiff-Molecular Normal Reference Range = Negative C. Diff DNA Negative- No toxigenic C. Diff DNA Detected NAAT METHOD Testing was performed using nucleic acid amplification Performed By: #### M100.0605, M100.7900, M100.6796, M100.637 #### [facility] [address] [place], [place], [address] Observed: 06/11/2018 Status: F Source: [place] ENTERIC PATHOGEN 12:16 PM [facility] PANEL STOOL REPOSITORY EP PANEL STOOL [...] M100.0605, M100.7900, M100.6796, M100.637 #### [facility] [address] [place], [place], [address] Observed: 06/10/2018 Status: F Source: [place] RESPIRATORY PANEL 5:12 PM [facility] MOLECULAR REPOSITORY RP PANEL Normal Reference [...] acid amplification Performed By: #### M100.638 #### [facility] [address] [place], [place], [address] ABDOMEN/PELVIS WITH Observed: 06/10/2018 Status: F Source: [place] CONTRAST 4:52 PM [facility] HOSPITAL REPOSITORY [facility] Imaging Services [address] [place] [address] Abdomen/Pelvis WITH Contrast MR#: [id number] Acct: [id number] Name: SHADI GARDUNO Rep #: [id number] : 1945 F 72 From: Terry Tellez DO PCP: Giovany Sandoval MD, Chi Status: REG CLI Study: Abdomen/Pelvis WITH Contrast Date of Exam: 06/10/18 Exam# [id number] Ordering Dr: Giovany Sandoval MD STUDY: CT [...] Terry Tellez DO at 21:39 EDT Tel [phone], Service support , CC: Giovany Sandoval MD Sales Representative Door To Door: Signed CBC W/DIFF, AUTOMATED Collected: 06/10/2018 Status: F Source: [place] 2:13 PM [facility] REPOSITORY TYPE CODE TESTS RESULT OUT [...] Lymph 2.34 Performed By: #### L100.0100 #### [facility] [address] [place], [place], [id number] COMPREHENSIVE METABOLIC Collected: 06/10/2018 Status: F Source: [facility] 2:13 PM [facility] REPOSITORY TYPE CODE TESTS RESULT OUT [...] GAP 5 Performed By: #### L500.4050 #### [facility] [address] [facility] [place], [address] CBC W/DIFF, AUTOMATED Collected: 03/05/2018 Status: F Source: [place] 10:04 AM [facility] REPOSITORY TYPE CODE TESTS RESULT OUT [...] Lymph 1.94 Performed By: #### L100.0100 #### [facility] Laboratory [facility] [place], [address] VITAMIN D,25 HYDROXY Collected: 03/05/2018 Status: F Source: [place] 10:04 AM [facility] REPOSITORY TYPE CODE TESTS RESULT OUT OF REFERENCE UNITS RANGE LAB L506.1000 29.95-100.01 ng/mL Low Vitamin D 18.6 25-OH Result Comment: Vitamin D 25(OH) Status Range Deficiency <20 ng/mL (50nmol/L) Insuffciency 20 - 30 ng/mL (50 - 75 nmol/L) Sufficiency 30 - 100 ng/mL (75 - 250 nmol/L) Toxicity >100 ng/mL (>250 nmol/L) Performed By: #### L506.1000 #### [facility] [place], [address] COMPREHENSIVE METABOLIC Collected: 03/05/2018 Status: F Source: LINDA HEADLEY 10:04 AM [facility] REPOSITORY TYPE CODE TESTS RESULT OUT [...] 7 Performed By: #### L500.4050, L501.9520 #### [facility] [address] [place], [place], [address] THYROID STIM HORMONE Collected: 03/05/2018 Status: F Source: LINDA (TSH) 10:04 AM [facility] REPOSITORY TYPE CODE TESTS RESULT OUT OF RANGE REFERENCE UNITS LAB L501.9520 0.358-3.74 uIU/mL Normal TSH 0.47 Performed By: #### L500.4050, L501.9520 #### [facility] [address], [address] HEPATITIS C ANTIBODIES Collected: 03/05/2018 Status: F Source: LINDA 10:04 AM [facility] REPOSITORY TYPE CODE TESTS RESULT OUT OF RANGE REFERENCE UNITS LAB L3100.0650 0.0-0.9 s/co ratio Normal HEP C AB <0.1 Result Comment: Negative: < 0.8 Indeterminate: 0.8 - 0.9 Positive: > 0.9 The CDC recommends that a positive HCV antibody result be followed up with a HCV Nucleic Acid Amplification test (949516). Performed at: - [facility] [address] [id number] Clin Nurse: Artis Gabriel PhD, Phone: [phone] Performed By: #### L3100.0625 #### [facility] (refer to report for specific site) refer to report for address and phone number ABD INC DECUB Observed: 02/21/2018 Status: F Source: LINDA AND/OR ERECT 10:50 AM [facility] REPOSITORY [facility] Imaging Services [address] [place] [address] Abd Inc Decub and/or Erect MR#: [id number] Acct: [id number] Name: FARHADSHADI J Rep #: [id number] : 1945 F 72 From: Izabella Palm PCP: Ayush CASTANO,Giovany Zimmerman Status: REG CLI Study: Abd Inc Decub and/or Erect Date of Exam: 02/21/18 Exam# [id number] Ordering Dr: Giovany Sandoval MD STUDY: X-RAY [...] Service support , CC: Giovany Sandoval MD Sales Representative Door To Door: Signed STOOL Observed: 11/30/2017 Status: F Source: LINDA LACTOFERRIN/WBC 10:40 AM [facility] REPOSITORY Stool Lacto/WBC Fecal WBC Lactoferrin Negative: No Fecal WBC Lactoferrin present Performed By: #### M100.0605, M100.6796, M100.7900, M100.637 #### [facility] [address] [place], [place], [address] Observed: 11/30/2017 Status: F Source: LINDA CDIFF (MOLECULAR) 10:40 AM [facility] REPOSITORY Cdiff-Molecular C. Diff DNA Negative- No toxigenic C. Diff DNA Detected NAAT METHOD Testing was performed using nucleic acid amplification Performed By: #### M100.0605, M100.6796, M100.7900, M100.637 #### [facility] [address] [place], [address] Observed: 11/30/2017 Status: F Source: LINDA STOOL OCCULT BLOOD 10:40 AM [facility] IFOB REPOSITORY STOB iFOB Occult Blood Negative Performed By: #### M100.0605, M100.6796, M100.7900, M100.637 #### [facility] [address] [place], [address] Observed: 11/30/2017 Status: F Source: LINDA ENTERIC PATHOGEN 10:40 AM [facility] PANEL STOOL REPOSITORY EP PANEL STOOL [...] By: #### M100.0605, M100.6796, M100.7900, M100.637 #### [facility] [address] [place], [address] Observed: 11/30/2017 Status: F Source: LINDA OVA AND PARASITES 10:40 AM [facility] REPOSITORY O + P OVA AND PARASITES EXAM, ROUTINE These results were obtained using wet preparation(s) and trichrome stained smear. This test does not include testing for Crytosporidium parvum, Cyclospora, or Microsporidia. TESTING PERFORMED AT [facility]. ORIGINAL REPORT ON FILE IN LAB CONTAINS ADDITIONAL TEST SITE INFORMATION. Ova/Parasite Exam NO OVA, CYSTS, OR PARASITES FOUND. Performed By: #### M600.5000 #### [facility] [address] [place], [place], [address] URINALYSIS, COMPLETE Collected: 11/18/2017 Status: F Source: LINDA 8:00 AM [facility] REPOSITORY Order Comment: How was Urine [...] URINE SEEN Performed By: #### L400.0001 #### [facility] [address] [place], [address] Observed: 11/18/2017 Status: F Source: LINDA CULTURE, URINE 8:00 AM [facility] REPOSITORY Urine Culture ORGANISM 1: Mixed Gram Positive Organisms [place] Count 1000-10,000 MIX CULTURE Mixed contaminants. Submit a new specimen if indicated. Performed By: #### M100.0650 #### [facility] [address] [place], [address] Observed: 11/14/2017 Status: F Source: [place] RESPIRATORY PANEL 1:25 PM [facility] MOLECULAR REPOSITORY RP PANEL Normal Reference [...] Performed By: #### M100.638 #### [facility] [address] [place], [address] ABD INC DECUB Observed: 11/14/2017 Status: F Source: LINDA AND/OR ERECT 1:24 PM [facility] REPOSITORY [facility] Imaging Services [address] [place] [address] [place] [address] Abd Inc Decub and/or Erect MR#: [id number] Acct: [id number] Name: SHADI GARDUNO Rep #: [id number] : 1945 F 72 From: Summer Benton MD PCP: Ayush CASTANO,Giovany Zimmerman Status: REG CLI Study: Abd Inc Decub and/or Erect Date of Exam: 11/14/17 Exam# [id number] Ordering Dr: Giovany Sandoval MD STUDY: X-RAY [...] Service support , CC: Giovany Sandoval MD Sales Representative Door To Door: Signed ALLERGIES ALLERGIES DATE TYPE / CODE NAME / CODE REACTION SEVERITY SOURCE 08/29/2017 Drug No Known Unknown [facility] Allergy/4160 Allergies/F00 [facility] 19163(SNOMED 6399933(RXNOR Repository CT) M) 02/12/2008 Animal/74311 CATS [facility] 4006(SNOMED Other [place] CT) Repository ENCOUNTERS ENCOUNTERS ADMIT/DISCHARGE ACCOUNT ADMITTING ENCOUNTER LOCATION SOURCE NUMBER CLASS 10/15/2018 [id number] General acute hospital ing:POLAB3 Repository 10/15/2018 [id number] Ambulatory [facility] ing:RAD Repository 09/03/2018 [id number] Ambulatory [facility] ing:POLAB3 Repository 09/01/2018 [id number] Inpatient [facility] [place] g:H.SD Repository 08/25/2018 [id number] Ambulatory [facility] [place] g:H.PAT Repository 08/05/2018 [id number] Ambulatory [facility] ing:POLAB3 Repository 07/18/2018/07/19/20 [id number] Emergency [address] ing:ED Repository 07/15/2018 [id number] DIONICIO ANGUIANO Ambulatory [facility] Other [place] Repository 07/14/2018/07/14/[id number] Repository 06/11/2018 [id number] Ambulatory [facility] ing:POLAB3 Repository 06/10/2018 [id number] Ambulatory [facility] ing:CT Repository 04/02/2018 [id number] Ambulatory [facility] ing:OPBI Repository 03/06/2018/03/06/20 [id number] Ambulatory BMSBuilding:B [place] [facility] Repository 03/05/2018 [id number] Ambulatory [facility] ing:POLAB3 Repository 02/21/2018 [id number] Ambulatory [facility] ing:RAD Repository 11/30/2017 [id number] General acute hospital ing:LABSPEC Repository 11/18/2017 [id number] Ambulatory [facility] ing:LABSPEC Repository 11/14/2017 [id number] Ambulatory [facility] ing:RAD Repository PAYERS PAYERS ENCOUNTER GUARANTOR PAYER SUBSCRIBER SOURCE 10/15/2018 SHADI Ovalle Primary SHADI Phanoster [id number] Insurance:MEDICARE SMOTHERMANDOB: [facility] PART A [address] Number: Repository [address]Nlq: 330 [id number] [phone] () Date:2018-09-18 10/15/2018 Secondary SHADI Mckeon Insurance:MEDICAIDPol SMOTHERMANDOB: [facility] Number: [id number] Hospital [id number] Repository Date:2018-09-18 10/15/2018 Tertiary NOT GIVENUNK [place] Insurance:SELF PAY [facility] Number: Effective Repository Date:2018-09-18 10/15/2018 SHADI Ovalle Primary SHADI Phanoster [id number] Insurance:MEDICARE SMOTHERMANDOB: [facility] PART A [facility] [id number] Number: Repository [address]Paj: 330 [id number] [phone] () Date:2018-10-15 10/15/2018 Secondary SHADI Mckeon Insurance:MEDICAIDPol SMOTHERMANDOB: Community icy Number: [id number] Hospital [id number] Repository Date:2018-10-15 10/15/2018 Tertiary NOT GIVENUNK [place] Insurance:SELF PAY [facility] Number: Effective Repository Date:2018-10-15 09/03/2018 SHADI J Primary SHADI Phanoster [id number] Insurance:MEDICARE SMOTHERMANDOB: Community JENNY PART A [facility] [id number] [place] Number: Repository [address]Elq: 330 [id number] [phone] (HP) Date:2018-09-03 09/03/2018 Secondary SHADI Mckeon Insurance:MEDICAIDPol SMOTHERMANDOB: [facility] icy Number: [id number] Hospital [id number] Repository Date:2018-09-03 09/03/2018 Tertiary NOT GIVENUNK [place] Insurance:SELF PAY [facility] Number: Effective Repository Date:2018-09-03 09/01/2018 SHADI Primary SHADI [facility] Medical [id number] Insurance:MEDICAREPol [facility] ic Number: Repository [place], [place] [id number]: (330) Date:1977-08-23P O [phone] () [address] [place], [place] [address]JA: 09/01/2018 Secondary [facility] Medical Insurance:MEDICAID [facility] Number: Repository [id number] Date:[id number] [address] [address]UO: 08/05/2018 SHADI Ovalle Primary SHADI Phanoster [id number] Insurance:MEDICARE SMOTHERMANDOB: Community JENNY PART A [facility] [id number] [place] Number: Repository [address]Ihb: 330 [id number] [phone] (HP) Date:2018-08-05 08/05/2018 Secondary SHADI Ovalle [place] Insurance:MEDICAIDPol SMOTHERMANDOB: Community icy Number: [id number] Hospital [id number] Repository Date:2018-08-05 08/05/2018 Tertiary NOT GIVENUNK [place] Insurance:SELF PAY [facility] Number: Effective Repository Date:2018-08-05 07/18/2018 SHADI Ovalle Primary SHADI Mckeon [id number] Insurance:MEDICARE SMOTHERMANDOB: Community JENNY PART A [facility] [id number] [place] Number: Repository [address]Kdz: 330 [id number] [phone] (HP) Date:2018-07-18 07/18/2018 Secondary SHADI Ovalle [place] Insurance:MEDICAIDPol SMOTHERMANDOB: [facility] icy Number: [id number] Hospital [id number] Repository Date:2018-07-18 07/18/2018 Tertiary NOT GIVENUNK [place] Insurance:SELF PAY [facility] Number: Effective Repository Date:2018-07-18 06/11/2018 SHADI Ovalle Primary SHADI Mckeon [id number] Insurance:MEDICARE SMOTHERMANDOB: Community JENNY PART A [facility] [id number] [facility] [place] Number: Repository [address]Beb: 330 [id number] [phone] (HP) Date:2018-06-11 06/11/2018 Secondary SHADI Ovalle [place] Insurance:MEDICAIDPol SMOTHERMANDOB: [facility] icy Number: [id number] Hospital [id number] Repository Date:2018-06-11 06/11/2018 Tertiary NOT GIVENUNK [place] Insurance:SELF PAY [facility] Number: Effective Repository Date:2018-06-11 06/10/2018 SHADI Ovalle Primary SHADI Mckeon [id number] Insurance:MEDICARE SMOTHERMANDOB: Community JENNY PART A [facility] [id number] [place] Number: Repository [address]Mpv: 330 [id number] [phone] (HP) Date:2018-06-10 06/10/2018 Secondary SHADI Mckeon Insurance:MEDICAIDPol SMOTHERMANDOB: Community icy Number: [id number] Hospital [id number] Repository Date:2018-06-10 06/10/2018 Tertiary NOT GIVENUNK [place] Insurance:SELF PAY [facility] Number: Effective Repository Date:2018-06-10 04/02/2018 SHADI Ovalle Primary SHADI Mckeon [id number] Insurance:MEDICARE SMOTHERMANDOB: Community JENNY PART A [facility] [id number] [place], [place] Number: Repository [address]Mcd: [phone] [id number] [phone] (HP) Date:2018-03-12 04/02/2018 Secondary SHADI Mckeon Insurance:MEDICAIDPol SMOTHERMANDOB: [facility] icy Number: [id number] Hospital [id number] Repository Date:2018-03-12 04/02/2018 Tertiary NOT GIVENUNK [place] Insurance:SELF PAY [facility] Number: Effective Repository Date:2018-03-12 03/06/2018 SHADI Ovalle Primary SHADI Mckeon [id number] Insurance:MEDICARE SMOTHERMANDOB: Community JENNY PART A [facility] [id number] [place] Number: Repository [address]Yte: [id number] [phone] Date:2018-03-06 0-4 (HP) 03/06/2018 Secondary SHADI Ovalle [place] Insurance:MEDICAIDPol SMOTHERMANDOB: [facility] icy Number: [id number] Hospital [id number] Repository Date:2018-03-06 03/06/2018 Tertiary NOT GIVENUNK [place] Insurance:SELF PAY [facility] Number: Effective Repository Date:2018-03-06 03/05/2018 Shadi Ovalle Primary Shadi Mckeon [id number] Insurance:MEDICARE SmothermanDOB: Community JENNY PART A [facility] [id number] [place] Number: Repository [address]Klj: [id number] [phone] Date:2018-03-05 0-4 (HP) 03/05/2018 Secondary Shadi Ovalle [place] Insurance:MEDICAIDPol SmothermanDOB: Community icy Number: [id number] Hospital [id number] Repository Date:2018-03-05 03/05/2018 Tertiary NOT GIVENUNK [place] Insurance:SELF PAY [facility] Number: Effective Repository Date:2018-03-05 02/21/2018 Shadi Ovalle Primary Shadi Mckeon [id number] Insurance:MEDICARE SmothermanDOB: Community JENNY PART A [facility] [id number] Area Medical Center [place] Number: Repository [address]Pkj: [id number] [phone] Date:2018-02-21 0-4 (HP) 02/21/2018 Secondary Shadi Ovalle [place] Insurance:MEDICAIDPol SmothermanDOB: [facility] icy Number: [id number] Hospital [id number] Repository Date:2018-02-21 02/21/2018 Tertiary NOT GIVENUNK [place] Insurance:SELF PAY [facility] Number: Effective Repository Date:2018-02-21 11/30/2017 Shadi Ovalle Primary Shadi Mckeon [id number] Insurance:MEDICARE SmothermanDOB: Community JENNY PART A [facility] [id number] [place] Number: Repository [address]Kfv: [id number] [phone] Date:2017-11-30 0-4 (HP) 11/30/2017 Secondary Shadi Ovalle [place] Insurance:MEDICAIDPol SmothermanDOB: [facility] icy Number: [id number] Hospital [id number] Repository Date:2017-11-30 11/30/2017 Tertiary NOT GIVENUNK [place] Insurance:SELF PAY [facility] Number: Effective Repository Date:2017-11-30 11/18/2017 Shadi Ovalle Primary Shadi Mckeon [id number] Insurance:MEDICARE SmothermanDOB: Community JENNY PART A [facility] [id number] [facility] Number[place] Repository [address]Tfk: [id number] [phone] Date:2017-11-18 0-4 (HP) 11/18/2017 Secondary Shadi Mckeon Insurance:MEDICAIDPol SmothermanDOB: Community icy Number: [id number] Hospital [id number] Repository Date:2017-11-18 11/18/2017 Tertiary NOT GIVENUNK [place] Insurance:SELF PAY [facility] Number: Effective Repository Date:2017-11-18 11/14/2017 Shadi Ovalle Primary Shadi Mckeon [id number] Insurance:MEDICARE SmothermanDOB: Community JENNY PART A [place] [id number] [place] Number: Repository [address]Bol: [id number] [phone] Date:2017-11-14 0-4 (HP) 11/14/2017 Secondary Shadi Mckeon Insurance:MEDICAIDPol SmothermanDOB: Community icy Number: [id number] Hospital [id number] Repository Date:2017-11-14 11/14/2017 Tertiary NOT GIVENUNK [place] Insurance:SELF PAY [facility] Number: Effective Repository Date:2017-11-14
== END ==
PROVIDERS: Family Provider Family Medicine Geriatric Medicine; PCP Family Medicine Geriatric Medicine; Referring Provider Family Medicine Geriatric Medicine; Visit Provider Family Medicine Geriatric Medicine
DX: K56.41 Fecal impaction (principal); R19.7 Diarrhea, unspecified; E03.9 Hypothyroidism, unspecified; E86.0 Dehydration
CPT/HCPCS: 36415; 74022; 80048; 82274; 83630; 84443; 85025; 87177; 87209; 87493; 87506

== ENCOUNTER 2018-11-28 06:59 | Day surgery (SDC) | payer MEDICARE, MEDICAID, SELFPAY ==
[2018-11-13 13:16] VITALS: BMI 18.6
--- NOTE | 2018-11-28 | IMM_PTH ---
PATIENT: SHADI LLAMAS LOC: EN U#:[id number] AGE/SX: 73/F ROOM: RE11/28/[address]: Dr. Samuel Schaffer MD : 1945 BED: DIS: 11/28/2018 SPEC #: [id number] RECD: 12/01/18 11:47 STATUS: NOVA REDavid #: [id number] SAM: 11/28/18 00:[address]: Samuel Schaffer DEPT: IMMUNOHISTOCHEMISTRY RECD BY: Annel Kraus ENTERED: 12/01/18 11:48 SP TYPE: IMMUNO OTHR DR: Dr. Giovany Peacock MD Tissues: Pyloric portion of stomach Procedures: H Pylori (initial) PHYSICIAN & INSTITUTION [place] [id number] SPECIMEN INFORMATION: Tissue Source: Prepyloric ulcer biopsy Clinical Info: Anemia, positive occult blood in stool Specimen Number: [id number] CPT code: 29704 METHODOLOGY: Deparaffinized sections of prefer/formalin-fixed tissue or PAP/DQ stained slides are incubated with monoclonal/polyclonal antibodies/oligonucleotide probes. Localization is made via biotin free immunoperoxidase method. Appropriate controls are performed and reacted as expected. Results on target cell population are indicated in the following table: RESULTS: ANTIBODY / CLONE RESULT H Pylori (polyclonal) negative These tests were developed and their performance characteristics determined by [facility]. They may not have been cleared or approved by the U.[place]. Food and Drug Administration. The FDA has determined that such clearance or approval is not necessary. INTERPRETATION: Prepyloric ulcer, biopsy: Negative for Helicobacter pylori organisms. AM:marilin 12/02/18
[2018-11-28 07:25] VITALS: BP 95/66; PULSE 79; RESP 16; TEMP 37.4; O2SAT 92; BMI 21.7
--- NOTE | 2018-11-28 08:00 | EGD_PTH ---
PATIENT: SHADI LLAMAS LOC: EN U#:[id number] AGE/SX: 73/F ROOM: RE11/28/[address]: Dr. Samuel Schaffer MD : 1945 BED: DIS: 11/28/2018 SPEC #: [id number] RECD: 11/28/18 09:29 STATUS: NOVA RASHMI #: [id number] SAM: 11/28/18 08:[address]: Samuel Schaffer DEPT: SURGICAL PATHOLOGY RECD BY: Monica Bonner ENTERED: 11/28/18 10:35 SP TYPE: EGD BIOPSY OT DR: Dr. Giovany Peacock MD Tissues: Pylorus Procedures: Surgery Specimen Level IV HEADER OPERATION[place] [place] DIAGNOSIS: Anemia, positive occult blood in stool TISSUE SUBMITTED: Prepyloric ulcer biopsy MICROSCOPIC DIAGNOSIS Prepyloric ulcer, biopsy: Reactive mucosal changes consistent with adjacent ulcer. Mild chronic gastritis. See comment. AM:marilin 12/01/18 COMMENT The results of immunohistochemistry for Helicobacter pylori will be reported separately ([id number]). MICROSCOPIC DESCRIPTION Slides are reviewed. GROSS DESCRIPTION Received in fixative is one container labeled with the patient's name and designated prepyloric biopsy of ulcer. The specimen consists of one irregular fragment of light che soft tissue that measures 0.4 x 0.2 x 0.1 cm. The specimen is totally submitted in one cassette. / AM:marilin 11/28/18 TC:3 CPT: 05015
[2018-11-28 08:33] VITALS: BP 79/52; BP 95/66; PULSE 68; RESP 18; TEMP 36.9; O2SAT 96
[2018-11-28 08:40] VITALS: BP 84/62; BP 95/66; PULSE 69; RESP 18; O2SAT 94
--- NOTE | 2018-11-28 08:40 | OP.ENDO_ITS ---
11/28/2018 Giovany Peacock MD [address] [place] [address] Re : Upper GI endoscopy procedure for Solange Garduno Dear Dr. Peacock This procedure was performed on Wednesday, November 28, 2018. My impressions and recommendations are as follows: Impressions : - Non-bleeding gastric ulcer with no stigmata of bleeding. Biopsied. - The examination was otherwise normal. Recommendations : - Resume previous diet. - Continue present medications. - Resume aspirin at prior dose tomorrow. - Use sucralfate tablets 1 gram PO QID for 1 month. My findings are described in the full procedure note, which is enclosed. If I can be of further assistance, please feel free to contact me at Doctor phone number(s): , Work: . Sincerely, Samuel Schaffer MD 11/28/2018 8:39:55 AM This report has been signed electronically.
--- NOTE | 2018-11-28 08:41 | OP.ENDO_ITS ---
11/28/2018 Giovany Peacock MD [address] [place] [address] Re : Colonoscopy procedure for Solange Garduno Dear Dr. Peacock This procedure was performed on Wednesday, November 28, 2018. My impressions and recommendations are as follows: Impressions : - The entire examined colon is normal on direct and retroflexion views. - Diverticulosis in the sigmoid colon and in the descending colon. - No specimens collected. Recommendations : - Discharge patient to home. - Resume previous diet. - Repeat colonoscopy in 10 years for screening purposes. - No aspirin, ibuprofen, naproxen, or other non-steroidal anti-inflammatory drugs for 1 day. My findings are described in the full procedure note, which is enclosed. If I can be of further assistance, please feel free to contact me at Doctor phone number(s): , Work: . Sincerely, Samuel Schaffer MD 11/28/2018 8:41:31 AM This report has been signed electronically.
[2018-11-28 08:45] VITALS: BP 92/64; BP 95/66; PULSE 72; RESP 18; O2SAT 98
[2018-11-28 08:50] VITALS: BP 87/60; BP 95/66; PULSE 67; RESP 18; TEMP 37.2; O2SAT 96
[2018-11-28 08:58] VITALS: BP 95/66
--- NOTE | 2018-11-28 09:21 | SUR.PHASEII ---
Per caregivers request, Sucralfate prescription phoned to [facility] Pharmacist.
== END 2018-11-28 09:32 | disposition home or self-care (01) ==
LOC: EN 07:01 → AC 07:03
PROVIDERS: Family Provider Family Medicine Geriatric Medicine; PCP Family Medicine Geriatric Medicine; Referring Provider Surgery; Visit Provider Surgery
PROC: 0DJD8ZZ Inspection of Lower Intestinal Tract, Via Natural or Artificial Opening Endoscopic (ICD-10-PCS; CPT 45378; principal; 2018-11-28 07:55)
DX: K25.9 Gastric ulcer, unspecified as acute or chronic, without hemorrhage or perforation (principal); D50.9 Iron deficiency anemia, unspecified; R19.5 Other fecal abnormalities; K57.30 Diverticulosis of large intestine without perforation or abscess without bleeding; K29.50 Unspecified chronic gastritis without bleeding; K21.9 Gastro-esophageal reflux disease without esophagitis; F32.9 Major depressive disorder, single episode, unspecified; F41.9 Anxiety disorder, unspecified; F79 Unspecified intellectual disabilities; G80.4 Ataxic cerebral palsy; G80.1 Spastic diplegic cerebral palsy; E03.9 Hypothyroidism, unspecified; Z79.82 Long term (current) use of aspirin; Z79.899 Other long term (current) drug therapy
CPT/HCPCS: 43239; 45378; 88305; 88342; J7120; J2405

== ENCOUNTER → 2019-02-17 | Outpatient (CLI) | payer MEDICARE, MEDICAID, SELFPAY ==
--- NOTE | 2019-02-17 08:35 | RAD_ITS ---
STUDY: X-RAY - RIGHT KNEE REASON FOR EXAM: Female, 73 years old. Pain and contusion medial knee TECHNIQUE: 4 view(s) of the knee. COMPARISON: September 25, 2017 right knee x-ray FINDINGS: There is demineralization of the visualized distal femur. There is demineralization of the tibia and fibula. Normal proximal tibiofibular articulation. There is moderate degenerative arthrosis of the medial femorotibial compartment with moderate joint space narrowing. There is moderate to severe degenerative arthrosis of the lateral femorotibial compartment with severe joint space narrowing. There is moderate degenerative arthrosis of the patellofemoral articulation. Mild soft tissue edema about the medial aspect of the knee. RAD/Knee 4 or More Views IMPRESSION: Medial knee soft tissue edema. No visualized evidence of an acute fracture. Moderate to severe arthrosis. Electronically Signed: Maria Alejandra Edmondson MD at 16:50 EDT Tel , Service support ,
== END | disposition home or self-care (01) ==
LOC: RAD 08:32
PROVIDERS: Family Provider Family Medicine; PCP Family Medicine; Referring Provider Family Medicine; Visit Provider Family Medicine
DX: S80.01XA Contusion of right knee, initial encounter (principal)
CPT/HCPCS: 73564

== ENCOUNTER → 2019-05-01 | Outpatient (CLI) | payer MEDICARE, MEDICAID, SELFPAY ==
[2019-03-19 09:59] VITALS: BMI 21.7
[2019-05-01 12:27] LABS: Absolute Neutrophil Count 2.8 X10^3/uL (2.0-7.7); Basophil# 0.06 X10^3/uL; Eosinophil# 0.48 X10^3/uL; Eosinophils% 7.8 % (0-5); Hematocrit 39.4 % (37-47); Lymphocyte % 29.2 % (19-41); Mean Corp Hgb Conc 30.5 g/dL (32-36); Mean Corpuscular Hgb 26.4 pg (27.0-32.0); Mean Corpuscular Volume 86.6 fL (81-99); Monocyte# 1.06 X10^3/uL; Monocyte% 17.2 % (0-10); NRBC Flagged by Analyzer 0 % (0-5); Neutrophil # 2.76 X10^3/uL (2.7-7.7); Neutrophil % 44.6 % (47-70); Platelet Count 304 K/mm3 (150-450); RBC Distribution Width CV 14.5 % (11.6-14.6); Red Blood Count 4.55 M/mm3 (4.2-5.4); White Blood Count 6.2 K/mm3 (4.4-11.0)
[2019-05-01 12:48] LABS: AST(SGOT) 16 U/L (15-37); Alanine Aminotransfer ALT/SGPT 22 U/L (13-56); Albumin, Serum 3.5 g/dL (3.2-5.0); Alkaline Phosphatase 127 U/L (45-117); Anion Gap 5 (5-15); BUN 26 mg/dL (7-18); BUN/Creat Ratio 24.1 RATIO (10-20); Calcium,Total 9.1 mg/dL (8.5-10.1); Chloride 106 mmol/L (98-107); Creatinine, Serum 1.08 mg/dL (0.55-1.02); EST Glomerular Filtration Rate 53 mL/min (>60); Est Glom Filt Rate - Afr Amer 64 mL/min (>60); Globulin 3.4 g/dL (2.2-4.2); Glucose 69 mg/dL (74-106); Potassium 4.8 mmol/L (3.5-5.1); Protein, Total 6.9 g/dL (6.4-8.2); Sodium Level 142 mmol/L (136-145); Thyroid Stim Hormone (TSH) 0.47 uIU/mL (0.358-3.74)
== END | disposition home or self-care (01) ==
LOC: BFHLAB 09:40
PROVIDERS: Family Provider Family Medicine; PCP Family Medicine; Visit Provider Family Medicine
DX: E03.9 Hypothyroidism, unspecified (principal); K27.4 Chronic or unspecified peptic ulcer, site unspecified, with hemorrhage
CPT/HCPCS: 36415; 80053; 84443; 85025

== ENCOUNTER 2019-06-12 09:12 | Emergency (ER) | payer MEDICARE, MEDICAID, SELFPAY ==
[2019-03-19 09:59] VITALS: BMI 21.7
[2019-06-12 09:20] VITALS: BP 99/60; PULSE 82; RESP 12; TEMP 36.6; O2SAT 96; BMI 50.3
--- NOTE | 2019-06-12 09:31 | ED.VIS.GEN ---
History of Present Illness Chief Complaint: Lower Extremity Injury Informant: - - Home care staff Narrative: Patient with a history of cerebral palsy presents to the ED following mechanical fall. She was being assisted to the end of her driveway out with a home health aide using a gait belt and her rolling walker when she lost her footing and fell forward. This had caused the staff member to trip over her and fall as well. Patient is accompanied by several staff members. They state patient has been complaining of right knee pain and right arm pain. They deny patient hit her head or loss consciousness. Patient has no other complaints at this time. Past Medical History - Allergies and Home Meds Allergies/Adverse Reactions: Allergies No Known Allergies Allergy (Verified 11/28/18 07:22) Primary Care Physician: Keysha Klein MD [Primary Care Provider] - Surgical History: noncontributory Smoking Status: Never smoker - Family History Maternal Family History: Reports: No pertinent history Review of Systems General: Denies: Chills, Fever, Sweats Eyes: Denies: Visual changes - bilaterally, Diplopia ENT: Denies: Rhinorrhea, Sore throat Cardiovascular: Denies: Chest pain, Palpitations Respiratory: Denies: Dyspnea, Cough, Dyspnea on exertion Gastrointestinal: Denies: Abdominal pain, Nausea, Vomiting, Diarrhea, Melena, Hematochezia Genitourinary: Denies: Dysuria, Hematuria, Frequency Musculoskeletal: Reports: Extremity Pain - R arm and knee. Denies: Back pain Skin: Denies: Rash, Wounds Neurological: Denies: Headache, Weakness, Numbness Physical Exam Vital Signs/Narrative: Vital Signs Temp Pulse Resp BP Pulse Ox 06/12/19 09:20 97.9 F 82 12 99/60 96 General: Well nourished, Well developed, No Acute Distress Head: Normocephalic, Atraumatic Eyes: Perrl, EOMI ENT: Moist mucous membranes, No rhinorrhea Neck: Supple, Nontender Cardiovascular: Regular rate, Regular rhythm, No murmurs Respiratory: No distress, CTA bilaterally, Chest nontender Abdomen: Soft, Nontender, Nondistended, Normal bowel sounds Back: Nontender, Normal Inspection Extremities: - - Tenderness to palpation over right knee and right ankle. Small area of ecchymosis over the anterior right knee. Full passive range of motion of all extremities. There is some crepitus with palpation of the right elbow and right humerus. No right wrist tenderness to palpation. No obvious deformities of all extremities. Distal pulses intact of all extremities. Normal sensation. Normal capillary refill. Skin: Normal color, No rash Neurological: Alert, Oriented x3, Cranial nerves II-XII grossly intact, Normal Strength, Normal Sensation Psychological: Normal affect, Normal Mood Diagnostic/Tx/Re-eval - Medical Decision Making Patient presents to the ED with reports of mechanical fall. She reports right arm and right knee/ankle pain. Radiographs of right humerus, elbow, knee, and ankle show no acute injuries. At this time, I think it is safe for the patient to be discharged home. She was given activity restrictions and advised to take kcmz-pme-kymekku analgesics. She was educated on rice therapy. Advised to follow-up with PCP as needed. They are educated on signs/symptoms to return to the ED. They are provided discharge instructions and agreeable to plan Impression: Right arm sprain. Right knee sprain. Mechanical fall. Disposition: Home stable ED Disposition - Plan for ED Patient: Disposition: Home or Assisted Living Diagnosis: Arm sprain, Right knee pain Instructions: Knee Sprain Referrals: Keysha Klein MD [Primary Care Provider] -
--- NOTE | 2019-06-12 09:36 | RAD_ITS ---
STUDY: X-RAY - RIGHT ANKLE REASON FOR EXAM: Female, 73 years old. Chest pain and ankle pain. TECHNIQUE: 3 view(s) of the ankle. COMPARISON: None. FINDINGS: Normal visualized distal tibia and fibula. Normal medial and lateral malleoli. Normal tibiotalar articulation and ankle mortise. A spur is seen at the insertion of the Achilles tendon. The visualized subtalar, talonavicular, calcaneocuboid and tarsal articulations are normal. Soft tissue swelling. RAD/Ankle min 3 Views IMPRESSION: Soft tissue swelling. Calcaneal spur. Electronically Signed: Emiliano Jauregui, at 10:39 EDT , Service support ,
--- NOTE | 2019-06-12 09:42 | RAD_ITS ---
STUDY: X-RAY - RIGHT KNEE REASON FOR EXAM: Female, 73 years old. Knee pain. Chest pain. TECHNIQUE: 4 view(s) of the knee. COMPARISON: None. FINDINGS: Normal visualized distal femur. Normal visualized proximal tibia and fibula. Normal proximal tibiofibular articulation. There is mild degenerative arthrosis of the medial femorotibial compartment. There is mild degenerative arthrosis of the lateral femorotibial compartment. There is mild degenerative arthrosis of the patellofemoral articulation. The soft tissue structures are unremarkable. RAD/Knee 4 or More Views IMPRESSION: Degenerative arthrosis. Electronically Signed: Emiliano Jauregui, at 10:39 EDT , Service support ,
--- NOTE | 2019-06-12 09:49 | RAD_ITS ---
STUDY: X-RAY - RIGHT ELBOW REASON FOR EXAM: Female, 73 years old. Elbow pain. Chest pain. TECHNIQUE: 3 view(s) of the elbow. COMPARISON: None. FINDINGS: Normal visualized humerus, radius and ulna. Normal radiocapitellar and ulnotrochlear articulations. The soft tissue structures are unremarkable. RAD/Elbow min 3 Views IMPRESSION: Normal x-ray examination of the elbow. Electronically Signed: Emiliano Jauregui, at 10:29 EDT , Service support ,
--- NOTE | 2019-06-12 09:56 | RAD_ITS ---
STUDY: X-RAY - RIGHT HUMERUS REASON FOR EXAM: Female, 73 years old. Chest pain and arm pain. TECHNIQUE: 2 view(s) of the humerus. COMPARISON: None. FINDINGS: Marked degree of osteoarthritis of the glenohumeral joint with subchondral cystic changes. There is no demonstrated fracture or osseous destructive process. There is no demonstrated soft tissue abnormality. RAD/Humerus min 2 Views IMPRESSION: Marked degree of degenerative changes at the glenohumeral joint. Electronically Signed: Emiliano Jauregui, at 10:33 EDT , Service support ,
--- NOTE | 2019-06-12 11:22 | ED.RN ---
PT DISCHARGED IN CARE OF TWO [employer] STAFF EMPLOYEE.
== END 2019-06-12 11:22 | disposition home or self-care (01) ==
PROVIDERS: Emergency Provider Physician Assistant; Family Provider Family Medicine; PCP Family Medicine
DX: S53.401A Unspecified sprain of right elbow, initial encounter (principal); S83.91XA Sprain of unspecified site of right knee, initial encounter; M25.571 Pain in right ankle and joints of right foot; W19.XXXA Unspecified fall, initial encounter; Y93.01 Activity, walking, marching and hiking; Y92.9 Unspecified place or not applicable; G80.9 Cerebral palsy, unspecified; Z79.899 Other long term (current) drug therapy
CPT/HCPCS: 73060; 73080; 73564; 73610; 99283

== ENCOUNTER → 2019-11-03 15:32 | Outpatient (CLI) | payer MEDICARE, MEDICAID, SELFPAY ==
[2019-06-16 08:12] VITALS: BMI 50.3
[2019-11-03 17:06] LABS: Color, Urine Yellow (Yellow); Glucose, Dipstick Normal (Normal); Ketone-Dipstick Negative (Negative); Leukocyte Esterase-Dipstick Negative /ul (Negative); Nitrite-Dipstick Negative (Negative); Occult Blood-Urine Negative /ul (Negative); Protein-Dipstick Negative (Negative); Specific Gravity, Urine 1.025 (1.002-1.030); Urine Bilirubin Dipstick Negative (Negative); Urine Clarity Clear (Clear); Urine Urobilinogen Normal (Normal)
== END ==
PROVIDERS: PCP Family Medicine; Referring Provider Family Medicine; Visit Provider Family Medicine
DX: R35.0 Frequency of micturition (principal)
CPT/HCPCS: 81002; 87086; 87088

== ENCOUNTER 2019-11-10 23:31 | Emergency (ER) | payer MEDICARE, MEDICAID, SELFPAY ==
[2019-06-16 08:12] VITALS: BMI 50.3
[2019-11-10 23:31] VITALS: BP 129/34; PULSE 88; RESP 20; TEMP 36; O2SAT 96; BMI 19.7
--- NOTE | 2019-11-10 23:57 | ED.RN ---
COMMUNITY DEVELOPMENT SPECIALIST CALLED FOR EKG, PULLED OLD EKGS FOR
--- NOTE | 2019-11-11 00:29 | RAD_ITS ---
HISTORY: dyspneabest images possible, patient has cerberal palsy Tamp; is MRDD ADDITIONAL HISTORY: None provided. COMPARISON: 10/15/2018, at 07/18/2018 TECHNIQUE: Frontal and lateral chest radiographs. Number of images including paperwork: 2 FINDINGS: LUNGS AND PLEURA: No consolidation, mass or pleural effusion. CARDIAC SILHOUETTE: Unremarkable. MEDIASTINUM AND MICHI: Unremarkable. UPPER ABDOMEN: Unremarkable. SKELETON AND SOFT TISSUES: No acute findings. Degenerative changes. OTHER DEVICES AND HARDWARE: None. RAD/Chest PA and Lateral IMPRESSION: No acute cardiopulmonary abnormality. at 0115 Reported and signed by: Andra Mittal MD Electronically Signed: Andra Mittal MD at 1:14 EST Tel , Service support ,
--- NOTE | 2019-11-11 00:29 | EKG12_ITS ---
Test Reason : CP/SOB Blood Pressure : / mmHG Vent. Rate : 085 BPM Atrial Rate : 085 BPM P-R Int : 148 ms QRS Dur : 070 ms QT Int : 362 ms P-R-T Axes : 065 058 069 degrees QTc Int : 430 ms Normal sinus rhythm Normal ECG Confirmed by ARUN MASON ([id number]), editor managing newspaper MYNOR APONTE ([id number]) on 11/12/2019 9:39:19 AM Referred By: CATIA Confirmed By:ARUN MASON
[2019-11-11 00:55] LABS: Absolute Lymphocyte Count 2.05 X10^3/uL (0.83-4.51); Absolute Neutrophil Count 5.9 X10^3/uL (2.0-7.7); Basophil# 0.04 X10^3/uL; Basophil% 0.4 % (0-1); Eosinophil# 0.01 X10^3/uL; Eosinophils% 0.1 % (0-5); Hematocrit 35.9 % (37-47); Hemoglobin 11.3 g/dL (12.0-15.0); Lymphocyte # 2.05 X10^3/ul (4.0); Lymphocyte % 20.8 % (19-41); Mean Corp Hgb Conc 31.5 g/dL (32-36); Mean Corpuscular Hgb 26.9 pg (27.0-32.0); Mean Corpuscular Volume 85.5 fL (81-99); Mean Platelet Vol. 10.5 fl (6.2-12.0); Monocyte# 1.85 X10^3/uL; Monocyte% 18.7 % (0-10); NRBC Flagged by Analyzer 0 % (0-5); Neutrophil # 5.89 X10^3/uL (2.7-7.7); Neutrophil % 59.7 % (47-70); POSITIVE DIFFERENTIAL YES; Platelet Count 192 K/mm3 (150-450); RBC Distribution Width CV 16.7 % (11.6-14.6); RBC Distribution Width SD 51.3 fl (35.1-43.9); White Blood Count 9.9 K/mm3 (4.4-11.0)
[2019-11-11 01:05] LABS: Differential Indicated SCAN CRITERIA MET
[2019-11-11 01:08] LABS: Anion Gap 5 (5-15); BUN 21 mg/dL (7-18); BUN/Creat Ratio 18.1 RATIO (10-20); Calcium,Total 8.9 mg/dL (8.5-10.1); Chloride 105 mmol/L (98-107); Creatinine, Serum 1.16 mg/dL (0.55-1.02); EST Glomerular Filtration Rate 49 mL/min (>60); Est Glom Filt Rate - Afr Amer 59 mL/min (>60); Estimated Creatinine Clearance 35.57 ml/min; Glucose 89 mg/dL (74-106); Potassium 4.4 mmol/L (3.5-5.1); Sodium Level 141 mmol/L (136-145)
[2019-11-11 01:23] LABS: BNP,B-Type NATRIURETIC PEPTIDE 48.7 pg/mL (0-100)
--- NOTE | 2019-11-11 01:59 | ED.RN ---
notified Dr. Uriostegui of positive flu B
[2019-11-11 02:06] LABS: Differential Comment SCANNED
--- NOTE | 2019-11-11 02:10 | ED.DCSUM_ITS ---
History of Present Illness Chief Complaint: Chest Pain Informant: Mental health staff Known exposure: Yes - Flu B Onset: Days Context: Gradual Onset Associated Symptoms: Cough, Fever, Sore throat Chest Pain: Tightness Narrative: Patient is a 74-year-old female presenting from her [facility] with concern for cough and chest pain as well as hypoxia. Patient has had worsening respiratory symptoms for the past few days. She seemed under the weather. Today they checked her pulse ox and it was in the 80s. She is also intermittently been tachycardic up to 115. She was seen by her PCP today and started on Tamiflu because she is had exposure to influenza at her [facility]. She is not started on the Tamiflu yet. Patient has had Tylenol at 8 PM. She has associated decreased appetite however she is had no vomiting and normal bowel movements. 1 of the aides does mention that the pulse ox was new and this is the first day they had it. Patient does have a hard time speaking secondary to her cerebral palsy however she points to her throat as where her pain is. She had seemed to relay that she had chest pain however after I talked her it seems that she more has discomfort associated with coughing. No other complaints or concerns at this time. Past Medical History - Allergies and Home Meds Allergies/Adverse Reactions: Allergies No Known Allergies Allergy (Verified 11/11/19 00:26) Primary Care Physician: Keysha Klein MD [Primary Care Provider] - Past Medical History: - - Anemia, anxiety, thyroid disease, cerebral palsy, depression Surgical History: noncontributory Lives: - - retirement Smoking Status: Unknown if ever smoked - Family History Maternal Family History: Reports: No pertinent history Review of Systems General: Reports: Malaise, - - Decreased appetite. Denies: Chills, Fever, Sweats ENT: Reports: Sore throat Cardiovascular: Reports: Chest pain. Denies: Palpitations Respiratory: Reports: Cough. Denies: Dyspnea, Dyspnea on exertion Gastrointestinal: Denies: Abdominal pain, Nausea, Vomiting, Diarrhea, Melena, Hematochezia Genitourinary: Denies: Dysuria, Hematuria, Frequency Skin: Denies: Rash Neurological: Denies: Headache, Weakness, Numbness Physical Exam Vital Signs/Narrative: Vital Signs Temp Pulse Resp BP Pulse Ox 11/10/19 23:31 96.8 F L 88 20 H 129/34 H 96 Inital Vital Signs reviewed: Yes General: Well nourished, Well developed Head: Normocephalic, Atraumatic Eyes: Perrl, EOMI ENT: Moist mucous membranes, TM's clear. Negative for: Sinus tenderness Neck: Supple, Nontender Cardiovascular: Regular rate, Regular rhythm, No murmurs Abdomen: Soft, Nontender, Nondistended, Normal bowel sounds Back: Nontender, Normal Inspection Extremities: Nontender, No edema Skin: Normal color, No rash Neurological: Alert, Cranial nerves II-XII grossly intact, Normal Sensation, - - Patient speech is difficult to understand secondary to cerebral palsy, she does have some contractures and abnormal strength but this is her baseline Psychological: Normal affect Diagnostic/Tx/Re-eval Chest X-Ray - ED: 2 View, Read by ED Physician, Read by Radiologist, No Acute Disease Clinical Impression(s) from Imaging Studies Chest X-Ray 11/11/19 00:29 IMPRESSION: No acute cardiopulmonary abnormality. at 0115 Reported and signed by: Andra Mittal MD Electronically Signed: Andra Mittal MD at 1:14 EST Tel , Service support , Laboratory Data 11/11/19 11/11/19 11/11/19 00:40 00:40 00:40 WBC 9.9 RBC 4.20 Hgb 11.3 L Hct 35.9 L MCV 85.5 MCH 26.9 L MCHC 31.5 L RDW Std Deviation 51.3 H RDW Coeff of Timmy 16.7 H Plt Count 192 MPV 10.5 Immature Gran % (Auto) 0.300 Neut % (Auto) 59.7 Lymph % (Auto) 20.8 Wetzel % (Auto) 18.7 H Eos % (Auto) 0.1 Baso % (Auto) 0.4 Absolute Neuts (auto) 5.9 Absolute Lymphs (auto) 2.05 Nucleated RBC % 0 Differential Comment SCANNED Sodium 141 Potassium 4.4 Chloride 105 Carbon Dioxide 31.0 Anion Gap 5 BUN 21 H Creatinine 1.16 H Estim Creat Clear Calc 35.57 Est GFR (MDRD) Af Amer 59 L Est GFR (MDRD) Non-Af 49 L BUN/Creatinine Ratio 18.1 Glucose 89 Calcium 8.9 Troponin I < 0.015 B-Natriuretic Peptide 48.7 - Rhythm Strip Rhythm Strip: Sinus Rhythm Rate: 85 Ectopy: None - EKG Initial EKG Interpretation: Sinus Rhythm, - - Normal sinus rhythm at a rate of [address] segments Normal intervals - Medical Decision Making Patient is evaluated for concern of hypoxia and tachycardia as well as flulike symptoms. She is had a flu exposure. Patient does not demonstrate any hypoxia or tachycardia in the emergency room. She is well-appearing does not appear dehydrated. Patient is under neurologic baseline. Chest x-rays not show any acute infiltrate. Flu swab is positive for influenza B. Cardiac work-up is otherwise normal. I do think patient is stable for outpatient follow-up. Caregivers are counseled on signs and symptoms require return emergency room. They have a prescription for Tamiflu and are instructed to start using it. They are counseled to alternate Tylenol and ibuprofen as needed for discomfort or fever. Counseled on return precautions. Patient discharged home in stable condition. ED Disposition - Plan for ED Patient: Disposition: Home or Assisted Living Diagnosis: Influenza B Instructions: INFLUENZA (Adult) Referrals: Keysha Klein MD [Primary Care Provider] - Additional Instructions: Take the Tamiflu that was prescribed. Give Tylenol and/or ibuprofen as needed for fever or discomfort. She really does not have any signs of tachycardia or hypoxia (low oxygen) while in the emergency room today. I think she is safe to go back to the [facility]. Follow-up with her primary care doctor next week. Return with any worsening symptoms.
[2019-11-11 02:46] VITALS: PULSE 81; RESP 18; O2SAT 96
[2019-11-11 02:59] VITALS: BP 97/45
== END 2019-11-11 03:04 | disposition home or self-care (01) ==
PROVIDERS: Emergency Provider Emergency Medicine; PCP Family Medicine
DX: J10.1 Influenza due to other identified influenza virus with other respiratory manifestations (principal); R09.02 Hypoxemia; G80.9 Cerebral palsy, unspecified; R00.0 Tachycardia, unspecified; E07.9 Disorder of thyroid, unspecified; F32.9 Major depressive disorder, single episode, unspecified; F41.9 Anxiety disorder, unspecified; Z79.82 Long term (current) use of aspirin; Z79.899 Other long term (current) drug therapy
CPT/HCPCS: 71046; 80048; 83880; 84484; 85025; 87804; 93005; 99284; A4216

== ENCOUNTER → 2019-11-30 15:33 | Outpatient (CLI) | payer MEDICARE, MEDICAID, SELFPAY ==
[2019-11-10 23:31] VITALS: BMI 19.7
[2019-11-30 18:04] LABS: Anion Gap 4 (5-15); BUN 15 mg/dL (7-18); BUN/Creat Ratio 15.2 RATIO (10-20); Calcium,Total 9.1 mg/dL (8.5-10.1); Chloride 107 mmol/L (98-107); Creatinine, Serum 0.98 mg/dL (0.55-1.02); EST Glomerular Filtration Rate 59 mL/min (>60); Est Glom Filt Rate - Afr Amer 71 mL/min (>60); Glucose 80 mg/dL (74-106); Potassium 4.6 mmol/L (3.5-5.1); Sodium Level 141 mmol/L (136-145)
== END ==
PROVIDERS: PCP Family Medicine; Visit Provider Family Medicine
DX: N18.3 Chronic kidney disease, stage 3 (moderate) (principal)
CPT/HCPCS: 36415; 80048

== ENCOUNTER 2020-02-25 10:53 | Emergency (ER) | payer MEDICARE, MEDICAID, SELFPAY ==
[2020-02-25 10:54] VITALS: BP 116/58; PULSE 78; PULSE 87; RESP 17; RESP 18; TEMP 36.4; O2SAT 95; O2SAT 96; BMI 19.9
--- NOTE | 2020-02-25 11:21 | RAD_ITS ---
STUDY: X-RAY - RIGHT SHOULDER REASON FOR EXAM: Female, 74 years old. BRUISING AND PAIN FOLLOWING INJURY TECHNIQUE: 2 view(s) of the shoulder. COMPARISON: None. FINDINGS: There is severe degenerative arthrosis of the glenohumeral articulation. There is cephalic migration of the humeral head suggestive of rotator cuff disease. Normal acromioclavicular joint. Normal acromion. Normal humeral head and visualized proximal humerus. The soft tissue structures are unremarkable. Normal visualized pulmonary apex. RAD/Shoulder min 2 Views IMPRESSION: Moderate degree of osteoarthritis of the glenohumeral joint with findings suggestive of rotator cuff disease. Electronically Signed: Emiliano Jauregui, at 11:58 EDT , Service support ,
--- NOTE | 2020-02-25 11:21 | RAD_ITS ---
STUDY: X-RAY - RIGHT HUMERUS REASON FOR EXAM: Female, 74 years old. BRUISING AND PAIN FOLLOWING INJURY TECHNIQUE: 2 view(s) of the humerus. COMPARISON: None. FINDINGS: Normal visualized humerus. There is no demonstrated fracture or osseous destructive process. Marked degree of osteoarthritis involving the glenohumeral joint. There is no demonstrated soft tissue abnormality. RAD/Humerus min 2 Views IMPRESSION: Moderate degree of osteoarthritis of the glenohumeral joint. Electronically Signed: Emiliano Jauregui, at 11:57 EDT , Service support ,
--- NOTE | 2020-02-25 11:22 | ED.VISSUMM ---
- ER Visit Summary Date of Service: 02/25/20 Chief Complaint: Bruising to right arm History of Present Illness: The patient is a 74 F with a history of cerebral palsy who [facility] and presents for bruising to her right arm. Patient is nonverbal. Staff reports they noted some bruising to her right arm today. Staff reports that they do daily skin checks and the bruising was not there yesterday. Patient fell approximately 2 weeks ago but has not had any difficulty using her arm more than usual over the past 2 weeks. Staff states that there were no falls reported last night. Staff reports that the patient is otherwise acting normally. Physical Examination: Vital signs are stable. Patient is afebrile. Patient is in no acute distress. Musculoskeletal exam revealed some mild tenderness over the right shoulder and humerus. There is some edema and ecchymosis noted. There is no deformity noted. Range of motion was limited in all motions of the right shoulder. Radial pulses are equal bilaterally. There are no apparent sensory deficits. Test Results: X-rays of the right humerus and right shoulder were obtained. There are degenerative changes but no acute fracture. This was interpreted by the radiologist and myself. Emergency Department Course and Treatment: Caregivers were advised of the findings. Caregivers were instructed use ice to the area. Caregivers were instructed to give the patient Tylenol or ibuprofen as needed for pain. Patient was instructed to follow-up with her primary care physician in 7 to 10 days. Caregivers understood and were agreeable with the plan. All questions were answered. Disposition: Discharge home Impression: Right shoulder contusion This note was generated with inTarvo dictation software. It may contain incorrect words, spelling, and punctuation that were not noted in review of the chart prior to signing ED Disposition - Plan for ED Patient: Disposition: Home or Assisted Living Diagnosis: Contusion of right shoulder, initial encounter Instructions: ED EXTREMITY CONTUSION Upper Referrals: Keysha Klein MD [Primary Care Provider] - 5-7 Days
== END 2020-02-25 13:01 | disposition home or self-care (01) ==
PROVIDERS: Emergency Provider Emergency Medicine; PCP Family Medicine
DX: S40.011A Contusion of right shoulder, initial encounter (principal); X58.XXXA Exposure to other specified factors, initial encounter; Y93.9 Activity, unspecified; Y92.9 Unspecified place or not applicable; Y99.9 Unspecified external cause status; G80.9 Cerebral palsy, unspecified; E03.9 Hypothyroidism, unspecified; F32.9 Major depressive disorder, single episode, unspecified; F41.9 Anxiety disorder, unspecified; Z79.82 Long term (current) use of aspirin; Z79.899 Other long term (current) drug therapy
CPT/HCPCS: 73030; 73060; 99282

== ENCOUNTER → 2020-03-02 10:39 | Outpatient (CLI) | payer MEDICARE, MEDICAID, SELFPAY ==
[2020-02-25 10:54] VITALS: BMI 19.9
[2020-03-02 11:23] LABS: Absolute Lymphocyte Count 1.89 X10^3/uL (0.83-4.51); Absolute Neutrophil Count 5.6 X10^3/uL (2.0-7.7); Basophil# 0.05 X10^3/uL; Basophil% 0.6 % (0-1); Eosinophils% 4.4 % (0-5); Hematocrit 39.1 % (37-47); Hemoglobin 11.8 g/dL (12.0-15.0); Lymphocyte # 1.89 X10^3/ul (4.0); Lymphocyte % 20.9 % (19-41); Mean Corp Hgb Conc 30.2 g/dL (32-36); Mean Corpuscular Hgb 28.6 pg (27.0-32.0); Mean Corpuscular Volume 94.9 fL (81-99); Mean Platelet Vol. 10.8 fl (6.2-12.0); Monocyte# 1.09 X10^3/uL; Monocyte% 12.1 % (0-10); NRBC Flagged by Analyzer 0 % (0-5); Neutrophil # 5.58 X10^3/uL (2.7-7.7); Neutrophil % 61.7 % (47-70); Platelet Count 296 K/mm3 (150-450); RBC Distribution Width CV 16.2 % (11.6-14.6); RBC Distribution Width SD 56.6 fl (35.1-43.9); Red Blood Count 4.12 M/mm3 (4.2-5.4)
[2020-03-02 11:26] LABS: Color, Urine Yellow (Yellow); Glucose, Dipstick Normal (Normal); Ketone-Dipstick Negative (Negative); Leukocyte Esterase-Dipstick Negative /ul (Negative); Nitrite-Dipstick Negative (Negative); Occult Blood-Urine Negative /ul (Negative); Protein-Dipstick Negative (Negative); Specific Gravity, Urine 1.015 (1.002-1.030); Urine Bilirubin Dipstick Negative (Negative); Urine Clarity Clear (Clear); Urine Urobilinogen Normal (Normal)
[2020-03-02 11:54] LABS: ALB/GLOB Ratio 1.1 RATIO (0.9-2.4); AST(SGOT) 17 U/L (15-37); Alanine Aminotransfer ALT/SGPT 16 U/L (13-56); Albumin, Serum 3.5 g/dL (3.2-5.0); Alkaline Phosphatase 98 U/L (45-117); Anion Gap 5 (5-15); BUN 15 mg/dL (7-18); BUN/Creat Ratio 18.2 RATIO (10-20); Chloride 103 mmol/L (98-107); Creatinine, Serum 0.83 mg/dL (0.55-1.02); EST Glomerular Filtration Rate 72 mL/min (>60); Est Glom Filt Rate - Afr Amer 87 mL/min (>60); Ferritin 35 ng/mL (8-252); Globulin 3.3 g/dL (2.2-4.2); Glucose 79 mg/dL (74-106); Potassium 4.6 mmol/L (3.5-5.1); Protein, Total 6.8 g/dL (6.4-8.2); Sodium Level 140 mmol/L (136-145); Thyroid Stim Hormone (TSH) 0.55 uIU/mL (0.358-3.74)
== END ==
PROVIDERS: PCP Family Medicine; Visit Provider Family Medicine
DX: M17.0 Bilateral primary osteoarthritis of knee (principal); K27.4 Chronic or unspecified peptic ulcer, site unspecified, with hemorrhage; N18.3 Chronic kidney disease, stage 3 (moderate); E03.9 Hypothyroidism, unspecified; R82.90 Unspecified abnormal findings in urine
CPT/HCPCS: 36415; 80053; 81002; 82728; 84443; 85025

== ENCOUNTER → 2020-04-08 | Outpatient (CLI) | payer MEDICARE, MEDICAID, SELFPAY ==
[2020-04-08 09:15] LABS: Bacteria 0 SEEN /hpf (None Seen); Mucous, Urine 0 SEEN /hpf (<or=2+); Red Blood Cells-Urine 0 SEEN /hpf (0-5); White Blood Cells 0 SEEN /hpf (0-5)
[2020-04-08 09:25] LABS: Color, Urine Yellow (Yellow); Glucose, Dipstick Normal (Normal); Ketone-Dipstick Negative (Negative); Leukocyte Esterase-Dipstick Negative /ul (Negative); Nitrite-Dipstick Negative (Negative); Occult Blood-Urine Negative /ul (Negative); Protein-Dipstick Negative (Negative); Urine Bilirubin Dipstick Negative (Negative); Urine Clarity Clear (Clear); Urine Urobilinogen Normal (Normal)
[2020-04-08 09:31] LABS: Squamous Epithelial Cells - UA 0-5 SEEN /hpf (5-10)
== END | disposition home or self-care (01) ==
LOC: LABSPEC 09:06
PROVIDERS: PCP Family Medicine; Referring Provider Family Medicine; Visit Provider Family Medicine
DX: R32 Unspecified urinary incontinence (principal)
CPT/HCPCS: 81001

== ENCOUNTER 2020-09-14 15:31 | Emergency (ER) | payer MEDICARE, MEDICAID, SELFPAY ==
[2020-09-14 15:32] VITALS: BP 134/63; PULSE 86; RESP 16; TEMP 36.4; O2SAT 97
[2020-09-14 15:35] VITALS: BP 134/63; PULSE 86; RESP 16; TEMP 36.4; O2SAT 97
--- NOTE | 2020-09-14 15:46 | ED.DCSUM_ITS ---
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 Apparently a staff member who was around the patient for 8 hours on the tested positive for Covid. Overnight patient developed cough. They have not noted fever or chills. She has been eating and drinking well. 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 Staff member advises no fever or chills. Cough is present. Physical Exam Vital Signs/Narrative: Vital Signs Temp Pulse Resp BP Pulse Ox 09/14/20 15:32 97.6 F L 86 16 134/63 H 97 Inital Vital Signs reviewed: Yes General: Well nourished, Well developed Head: Normocephalic ENT: Moist mucous membranes Neck: Supple Cardiovascular: Regular rate, Regular rhythm Respiratory: No distress, CTA bilaterally Abdomen: Soft, Nontender Extremities: Nontender Skin: Normal color Neurological: Alert, - - Moves all 4 extremities without difficulty Psychological: Normal affect Diagnostic/Tx/Re-eval Chest X-Ray - ED: 1 View, Read by ED Physician, Chronic Changes, - - Chronic lung changes noted with no focal infiltrate. Extensive gas noted throughout the intestines. Impressions Chest X-Ray 09/14/20 16:23 IMPRESSION: Low lung volumes. Grossly clear lungs. Electronically Signed: Nikolai Castro, at 16:47 EST Tel , Service support , 09/14/20 16:23 Chest 1 View (Portable) [RAD] Stat 09/14/20 16:14 Mucosa - Nose SARS-CoV-2 Antigen (Rapid) - Final - Medical Decision Making Chest x-ray reveals no focal infiltrate per my review. Radiologist interpretation is also reviewed. Rapid Covid antigen test is negative at this time. I did advise staff member that if symptoms persist she needs to be retested in the next couple of days as the viral load may not be high enough at this time for a positive test. She voices understanding and agreement. Supportive care will be provided. ED Disposition - Plan for ED Patient: Disposition: Home or Assisted Living Diagnosis: Viral URI Instructions: ED URI, Viral, No Abx (Adult) Referrals: Keysha Klein MD [Primary Care Provider] - 1 Week if not improving
[2020-09-14 16:22] VITALS: O2SAT 97
--- NOTE | 2020-09-14 16:23 | RAD_ITS ---
STUDY: X-RAY CHEST REASON FOR EXAM: Female, 75 years old. Cough. TECHNIQUE: Frontal view of the chest COMPARISON: 11/11/19 FINDINGS: Low lung volumes are noted. This limits evaluation. The lungs are grossly clear. There are no pleural effusions. There is no pneumothorax. The heart is normal in size. The visualized osseous structures are within normal limits. RAD/Chest 1 View (Portable) IMPRESSION: Low lung volumes. Grossly clear lungs. Electronically Signed: Nikolai Castro, at 16:47 EST Tel , Service support ,
[2020-09-14 17:07] VITALS: BP 134/63; PULSE 86; RESP 16; TEMP 36.4; O2SAT 97
== END 2020-09-14 17:08 | disposition home or self-care (01) ==
PROVIDERS: Emergency Provider Emergency Medicine; PCP Family Medicine
DX: J06.9 Acute upper respiratory infection, unspecified (principal); Z20.828 Contact with and (suspected) exposure to other viral communicable diseases; G80.1 Spastic diplegic cerebral palsy; E03.9 Hypothyroidism, unspecified; F32.9 Major depressive disorder, single episode, unspecified; Z79.82 Long term (current) use of aspirin; Z79.890 Hormone replacement therapy; Z79.899 Other long term (current) drug therapy
CPT/HCPCS: 71045; 87426; 99282

== ENCOUNTER → 2020-10-04 15:19 | Outpatient (CLI) | payer MEDICARE, MEDICAID, SELFPAY ==
[2020-10-04 17:34] LABS: Absolute Lymphocyte Count 2.23 X10^3/uL (0.83-4.51); Absolute Neutrophil Count 3.6 X10^3/uL (2.0-7.7); Basophil# 0.05 X10^3/uL; Basophil% 0.7 % (0-1); Eosinophil# 0.34 X10^3/uL; Eosinophils% 4.6 % (0-5); Hematocrit 44.7 % (37-47); Hemoglobin 13.5 g/dL (12.0-15.0); Lymphocyte # 2.23 X10^3/ul (4.0); Lymphocyte % 30.4 % (19-41); Mean Corp Hgb Conc 30.2 g/dL (32-36); Mean Corpuscular Hgb 27.3 pg (27.0-32.0); Mean Corpuscular Volume 90.3 fL (81-99); Mean Platelet Vol. 11.6 fl (6.2-12.0); Monocyte# 1.12 X10^3/uL; Monocyte% 15.3 % (0-10); NRBC Flagged by Analyzer 0 % (0-5); Neutrophil # 3.57 X10^3/uL (2.7-7.7); Neutrophil % 48.7 % (47-70); Platelet Count 236 K/mm3 (150-450); RBC Distribution Width CV 14.1 % (11.6-14.6); RBC Distribution Width SD 46.6 fl (35.1-43.9); Red Blood Count 4.95 M/mm3 (4.2-5.4); White Blood Count 7.3 K/mm3 (4.4-11.0)
[2020-10-04 17:45] LABS: Anion Gap 5 (5-15); BUN 25 mg/dL (7-18); BUN/Creat Ratio 25.4 RATIO (10-20); Calcium,Total 8.9 mg/dL (8.5-10.1); Chloride 109 mmol/L (98-107); Creatinine, Serum 0.99 mg/dL (0.55-1.02); EST Glomerular Filtration Rate 59 mL/min (>60); Est Glom Filt Rate - Afr Amer 71 mL/min (>60); Glucose 83 mg/dL (74-106); Potassium 5.3 mmol/L (3.5-5.1); Sodium Level 141 mmol/L (136-145)
== END ==
PROVIDERS: PCP Family Medicine; Visit Provider Family Medicine
DX: Z01.818 Encounter for other preprocedural examination (principal); N18.30 Chronic kidney disease, stage 3 unspecified; K27.4 Chronic or unspecified peptic ulcer, site unspecified, with hemorrhage
CPT/HCPCS: 36415; 80048; 85025

== ENCOUNTER 2020-10-09 12:37 | Emergency (ER) | payer MEDICARE, MEDICAID, SELFPAY ==
[2020-10-09 12:38] VITALS: BP 135/63; PULSE 83; RESP 16; TEMP 36.1; O2SAT 96; BMI 23.4
--- NOTE | 2020-10-09 12:49 | RAD_ITS ---
STUDY: X-RAY - RIGHT ELBOW REASON FOR EXAM: Female, 75 years old. LUMP ON ELBOW X 2 DAYS LATERAL DISTAL HUMERUS/ELBOW JOINT, PAINFUL TO TOUCH -- NKI -- PT MENTALLY CHALLENGED-TECH HAD TO HOLD FOR ALL IMAGES TECHNIQUE: 3 view(s) of the elbow. COMPARISON: None. FINDINGS: Normal visualized humerus, radius and ulna. Normal radiocapitellar and ulnotrochlear articulations. The soft tissue structures are unremarkable. RAD/Elbow min 3 Views IMPRESSION: Normal x-ray examination of the elbow. Electronically Signed: Tl Horan MD at 13:22 EST Tel , Service support ,
--- NOTE | 2020-10-09 13:49 | ED.DCSUM_ITS ---
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 retirement noticed evidence of swelling to the right elbow over the past 2 days. States that it does appear to be painful to the patient. Denies any fever or chills. Denies any trauma. Past Medical History - Allergies and Home Meds Allergies/Adverse Reactions: Allergies No Known Allergies Allergy (Verified 09/14/20 15:35) Primary Care Physician: Keysha Klein MD [Primary Care Provider] - Prior records reviewed: Yes Past Medical History: - - cerebal palsy Surgical History: noncontributory Lives: [place] Smoking Status: Never smoker - Family History Maternal Family History: Reports: No pertinent history Review of Systems General: Denies: Chills, Fever, Sweats Eyes: Denies: Visual changes - bilaterally, Diplopia ENT: Denies: Rhinorrhea, Sore throat Cardiovascular: Denies: Chest pain, Palpitations Respiratory: Denies: Dyspnea, Cough, Dyspnea on exertion Gastrointestinal: Denies: Abdominal pain, Nausea, Vomiting, Diarrhea, Melena, Hematochezia Genitourinary: Denies: Dysuria, Hematuria, Frequency Musculoskeletal: Reports: Arthralgias. Denies: Back pain, Extremity Pain Skin: Denies: Rash, Wounds Neurological: Denies: Headache, Weakness, Numbness Physical Exam Vital Signs/Narrative: Vital Signs Temp Pulse Resp BP Pulse Ox 10/09/20 12:38 97 F L 83 16 135/63 H 96 Inital Vital Signs reviewed: Yes General: Well nourished, Well developed, No Acute Distress Head: Normocephalic, Atraumatic Eyes: Perrl, EOMI ENT: Moist mucous membranes, No rhinorrhea Neck: Supple, Nontender Cardiovascular: Regular rate, Regular rhythm, No murmurs Respiratory: No distress, CTA bilaterally, Chest nontender Abdomen: Soft, Nontender, Nondistended, Normal bowel sounds Back: Nontender, Normal Inspection Extremities: Nontender, No edema, - - Evidence of cystic-like lesion to the left elbow. Approximately 3 cm x 3 cm. Full range of motion at the elbow. No over lying erythema. Skin: Normal color, No rash Neurological: Alert, Oriented x3, Cranial nerves II-XII grossly intact, Normal Strength, Normal Sensation Psychological: Normal affect, Normal Mood Diagnostic/Tx/Re-eval Clinical Impression(s) from Imaging Studies Elbow X-Ray 10/09/20 12:49 IMPRESSION: Normal x-ray examination of the elbow. Electronically Signed: Tl Horan MD at 13:22 EST Tel , Service support , - Medical Decision Making Appears well nontoxic. Cystic lesion to the right elbow. Full range of motion. Low concern for septic arthritis. X-ray negative. Nayan wrap was placed. Advised residential on having patient follow-up with primary care. Asked to return for new or worsening symptoms. Agreeable and discharged home in stable condition. Impression: 1. Right elbow cyst ED Disposition - Plan for ED Patient: Disposition: Home or Assisted Living Prescriptions: Acetaminophen Liquid [Tylenol Liquid] 650 mg GT Q6H PRN PRN #400 ml PRN Reason: Pain 1-10 Or Fever Prescription Printed Referrals: Keysha Klein MD [Primary Care Provider] - Additional Instructions: Please keep NAYAN wrap on intermittently and follow up with PCP. Return for fevers or increasing pain.
== END 2020-10-09 14:40 | disposition home or self-care (01) ==
PROVIDERS: Emergency Provider Emergency Medicine; PCP Family Medicine
DX: L72.9 Follicular cyst of the skin and subcutaneous tissue, unspecified (principal); G80.9 Cerebral palsy, unspecified; Z79.82 Long term (current) use of aspirin; Z79.899 Other long term (current) drug therapy
CPT/HCPCS: 73080; 99282

== ENCOUNTER 2020-11-16 12:27 | Emergency (ER) | payer MEDICARE, MEDICAID, SELFPAY ==
[2020-11-16 12:28] VITALS: BP 98/61; PULSE 86; RESP 19; TEMP 36.6; O2SAT 94; BMI 21.9
--- NOTE | 2020-11-16 12:48 | EKG12_ITS ---
Test Reason : GEN. ILLNESS Blood Pressure : / mmHG Vent. Rate : 080 BPM Atrial Rate : 080 BPM P-R Int : 122 ms QRS Dur : 068 ms QT Int : 368 ms P-R-T Axes : 007 049 063 degrees QTc Int : 424 ms Normal sinus rhythm Normal ECG Confirmed by JR CASTANO, HELENA ([id number]), editor dictionary MYNOR APONTE ([id number]) on 11/21/2020 9:34:28 AM Referred By: DANDRE Confirmed By:MARIBEL NORRIS MD
--- NOTE | 2020-11-16 12:50 | ED.DCSUM_ITS ---
History of Present Illness Chief Complaint: Complaint Informant: SNF Narrative: 75-year-old female is brought in from a long term with blood in the urine. The patient reportedly tested positive for COVID-19 on Saturday and her symptomology was diarrhea. The caregiver that comes with her today is not one of her typical caregivers and she has only met the patient one other time. There is limited information in the binder that accompanies the patient and the patient herself due to her longstanding cerebral palsy cannot add any input. Nursing reports that they received information that she has had decreased urinary output continued diarrhea blood in the urine and kidney damage. However I see no documentation or reports as to what that entails. 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 (3) Depression Status: Chronic (4) Hypothyroid Status: Chronic Past Medical History - Allergies and Home Meds Allergies/Adverse Reactions: Allergies No Known Allergies Allergy (Verified 11/16/20 12:28) Primary Care Physician: Keysha Klein MD [Primary Care Provider] - 3-5 Days if not improving Surgical History: noncontributory Lives: - - Patient lives in a long term Smoking Status: Never smoker Alcohol: None Drugs: None - Family History Maternal Family History: Reports: No pertinent history Review of Systems ROS: Unable to Obtain Gastrointestinal: Reports: Diarrhea Genitourinary: Reports: Hematuria Physical Exam Vital Signs/Narrative: Vital Signs Temp Pulse Resp BP Pulse Ox 11/16/20 12:28 97.8 F 86 19 H 98/61 94 Inital Vital Signs reviewed: Yes General: Well nourished, Well developed, No Acute Distress Head: Normocephalic, Atraumatic Eyes: Perrl, EOMI ENT: Moist mucous membranes, No rhinorrhea Neck: Supple, Nontender Cardiovascular: Regular rate, Regular rhythm, No murmurs Respiratory: No distress, CTA bilaterally, Chest nontender Abdomen: Soft, Nontender, Nondistended, Normal bowel sounds Back: Nontender, Normal Inspection Extremities: Nontender, No edema Skin: Normal color, No rash Neurological: Alert, - - Patient follows commands. Chronic changes associated with cerebral palsy. Psychological: Normal affect, Normal Mood Diagnostic/Tx/Re-eval Clinical Impression(s) from Imaging Studies Chest X-Ray 11/16/20 13:55 IMPRESSION: Mild increased markings at the left lung base suggestive of early infiltrate. Electronically Signed: Emiliano Jauregui MD at 14:15 EST , Service support , Laboratory Last Values WBC 8.1 K/mm3 (4.4-11.0) 11/16/20 13:20 RBC 4.72 M/mm3 (4.2-5.4) 11/16/20 13:20 Hgb 12.8 g/dL (12.0-15.0) 11/16/20 13:20 Hct 42.7 % (37-47) 11/16/20 13:20 MCV 90.5 fL (81-99) 11/16/20 13:20 MCH 27.1 pg (27.0-32.0) 11/16/20 13:20 MCHC 30.0 g/dL (32-36) L 11/16/20 13:20 RDW Std Deviation 46.7 fl (35.1-43.9) H 11/16/20 13:20 RDW Coeff of Timmy 14.2 % (11.6-14.6) 11/16/20 13:20 Plt Count 178 K/mm3 (150-450) 11/16/20 13:20 MPV 10.5 fl (6.2-12.0) 11/16/20 13:20 Immature Gran % (Auto) 0.200 % (0.0-0.9) 11/16/20 13:20 Neut % (Auto) 54.0 % (47-70) 11/16/20 13:20 Lymph % (Auto) 27.3 % (19-41) 11/16/20 13:20 [place] % (Auto) 16.7 % (0-10) H 11/16/20 13:20 Eos % (Auto) 1.6 % (0-5) 11/16/20 13:20 Baso % (Auto) 0.2 % (0-1) 11/16/20 13:20 Absolute Neuts (auto) 4.4 X10^3/uL (2.0-7.7) 11/16/20 13:20 Absolute Lymphs (auto) 2.22 X10^3/uL (0.83-4.51) 11/16/20 13:20 Nucleated RBC % 0 % (0-5) 11/16/20 13:20 Sodium 145 mmol/L (136-145) 11/16/20 13:20 Potassium 4.6 mmol/L (3.5-5.1) 11/16/20 13:20 Chloride 109 mmol/L (98-107) H 11/16/20 13:20 Carbon Dioxide 35.0 mmol/L (21.0-32.0) H 11/16/20 13:20 Anion Gap 1 (5-15) L 11/16/20 13:20 BUN 24 mg/dL (7-18) H 11/16/20 13:20 Creatinine 0.94 mg/dL (0.55-1.02) 11/16/20 13:20 Estim Creat Clear Calc 41.53 ml/min 11/16/20 13:20 Est GFR (MDRD) Af Amer 75 mL/min (>60) 11/16/20 13:20 Est GFR (MDRD) Non-Af 62 mL/min (>60) 11/16/20 13:20 BUN/Creatinine Ratio 25.5 RATIO (10-20) H 11/16/20 13:20 Glucose 103 mg/dL (74-106) 11/16/20 13:20 Lactic Acid 1.7 mmol/L (0.4-1.9) 11/16/20 13:25 Calcium 9.0 mg/dL (8.5-10.1) 11/16/20 13:20 Total Bilirubin 0.30 mg/dL (0.20-1.00) 11/16/20 13:20 AST 20 U/L (15-37) 11/16/20 13:20 ALT 28 U/L (13-56) 11/16/20 13:20 Alkaline Phosphatase 103 U/L (45-117) 11/16/20 13:20 Troponin I < 0.015 ng/mL (<0.045) 11/16/20 13:20 Total Protein 6.5 g/dL (6.4-8.2) 11/16/20 13:20 Albumin 3.5 g/dL (3.2-5.0) 11/16/20 13:20 Globulin 3.0 g/dL (2.2-4.2) 11/16/20 13:20 Albumin/Globulin Ratio 1.2 RATIO (0.9-2.4) 11/16/20 13:20 Urine Color Cheryl (Yellow) 11/16/20 13:10 Urine Clarity Cloudy (Clear) 11/16/20 13:10 Urine pH 5.0 (5.0 - 8.0) 11/16/20 13:10 Ur Specific [place] 1.025 (1.002-1.030) 11/16/20 13:10 Urine Protein 100 mg/dl (Negative) H 11/16/20 13:10 Urine Glucose (UA) Normal mg/dl (Normal) 11/16/20 13:10 Urine Ketones 5 mg/dl (Negative) H 11/16/20 13:10 Urine Occult Blood 250 /ul (Negative) H 11/16/20 13:10 Urine Nitrite Positive (Negative) H 11/16/20 13:10 Urine Bilirubin 1 mg/dL (Negative) H 11/16/20 13:10 Urine Urobilinogen 1 mg/dl (Normal) H 11/16/20 13:10 Ur Leukocyte Esterase 500 /ul (Negative) H 11/16/20 13:10 Urine RBC > 100 SEEN /hpf (0-5) 11/16/20 13:10 Urine WBC >100 SEEN /hpf (0-5) 11/16/20 13:10 Ur Squamous Epith Cells 0 SEEN /hpf (5-10) 11/16/20 13:10 Urine Bacteria 0 SEEN /hpf (None Seen) 11/16/20 13:10 Urine Mucus 0 SEEN /hpf (<or=2+) 11/16/20 13:10 - EKG Initial EKG Interpretation: Sinus Rhythm - EKG demonstrates a normal sinus rhythm at a rate of 80. No concerning features of ACS or ectopy. - Medical Decision Making Patient has COVID-19. My impression of the portable chest x-ray is possible infiltrative changes on the left. Radiology agrees however being that she has COVID-19 thisalmost to be expected. She has evidence of a UTI. Positive nitrates greater than 100 white cells greater than 100 red cells. She does not have a fever. She does not have a white count. BUN and creatinine are fine. Lactic acid is normal. We gave her a liter of fluids and her blood pressures have been stable. At this point I will write for the patient to have Keflex. We will do a urine culture and blood cultures. Patient to return if worsening or concerns. ED Disposition - Plan for ED Patient: Disposition: Home or Assisted Living Diagnosis: UTI (urinary tract infection), COVID-19 Instructions: ED Bladder Infection, Female (Adult) Prescriptions: Cephalexin [Keflex] 500 mg PO Q12 #14 cap Prescription Printed Referrals: Keysha Klein MD [Primary Care Provider] - 3-5 Days if not improving
[2020-11-16 13:16] VITALS: BP 98/52; PULSE 77; RESP 22; O2SAT 95
[2020-11-16 13:20] VITALS: TEMP 36.9
[2020-11-16 13:23] LABS: Bacteria 0 SEEN /hpf (None Seen); Mucous, Urine 0 SEEN /hpf (<or=2+); Squamous Epithelial Cells - UA 0 SEEN /hpf (5-10)
[2020-11-16] MEDS: 0.9% Normal Saline 1,000 ML 999 ML IV (13:30)
[2020-11-16 13:32] VITALS: BP 98/82; PULSE 79; RESP 18; TEMP 36.9; O2SAT 96
[2020-11-16 13:38] LABS: Color, Urine Amber (Yellow); Glucose, Dipstick Normal (Normal); Ketone-Dipstick 5 mg/dl (Negative); Leukocyte Esterase-Dipstick 500 /ul (Negative); Nitrite-Dipstick Positive (Negative); Occult Blood-Urine 250 /ul (Negative); Protein-Dipstick 100 mg/dl (Negative); Specific Gravity, Urine 1.025 (1.002-1.030); Urine Clarity Cloudy (Clear); Urine Urobilinogen 1 mg/dl (Normal)
[2020-11-16 13:46] LABS: Absolute Lymphocyte Count 2.22 X10^3/uL (0.83-4.51); Absolute Neutrophil Count 4.4 X10^3/uL (2.0-7.7); Basophil# 0.02 X10^3/uL; Basophil% 0.2 % (0-1); Eosinophil# 0.13 X10^3/uL; Eosinophils% 1.6 % (0-5); Hematocrit 42.7 % (37-47); Hemoglobin 12.8 g/dL (12.0-15.0); Lymphocyte # 2.22 X10^3/ul (4.0); Lymphocyte % 27.3 % (19-41); Mean Corpuscular Hgb 27.1 pg (27.0-32.0); Mean Corpuscular Volume 90.5 fL (81-99); Mean Platelet Vol. 10.5 fl (6.2-12.0); Monocyte# 1.36 X10^3/uL; Monocyte% 16.7 % (0-10); NRBC Flagged by Analyzer 0 % (0-5); Neutrophil # 4.39 X10^3/uL (2.7-7.7); Platelet Count 178 K/mm3 (150-450); RBC Distribution Width CV 14.2 % (11.6-14.6); RBC Distribution Width SD 46.7 fl (35.1-43.9); Red Blood Count 4.72 M/mm3 (4.2-5.4); White Blood Count 8.1 K/mm3 (4.4-11.0)
[2020-11-16 13:49] LABS: Urine Bilirubin Dipstick 1 mg/dL (Negative)
[2020-11-16 13:50] LABS: Red Blood Cells-Urine > 100 SEEN /hpf (0-5)
[2020-11-16 13:51] LABS: White Blood Cells >100 SEEN /hpf (0-5)
--- NOTE | 2020-11-16 13:55 | RAD_ITS ---
STUDY: X-RAY CHEST REASON FOR EXAM: Female, 75 years old. PT BROUGHT IN BY [facility], TESTED POSITIVE FOR COVID. AID REPORTS DECREASED URINE OUTPUT, URINE IN BLOOD, DIARRHEA, AND KIDNEY DAMAGE TECHNIQUE: Single AP portable view of the chest. COMPARISON: Comparison is made with prior study dated 09/14/2020. FINDINGS: EKG electrodes are seen. There is elevation of the left hemidiaphragm. Mild increased markings at the left lung base suggestive of early infiltrate. There is no demonstrated pleural abnormality. Normal size heart. Normal mediastinum and ester. Normal visualized pulmonary arteries. Normal visualized aortic arch and descending thoracic aorta. There are diffuse degenerative changes of the visualized thoracic spine. There is degenerative osteoarthritis of the bilateral shoulders. There is no demonstrated abnormality of the visualized soft tissue structures of the upper abdomen. RAD/Chest 1 View (Portable) IMPRESSION: Mild increased markings at the left lung base suggestive of early infiltrate. Electronically Signed: Emiliano aJuregui MD at 14:15 EST , Service support ,
[2020-11-16 14:01] LABS: ALB/GLOB Ratio 1.2 RATIO (0.9-2.4); AST(SGOT) 20 U/L (15-37); Alanine Aminotransfer ALT/SGPT 28 U/L (13-56); Albumin, Serum 3.5 g/dL (3.2-5.0); Alkaline Phosphatase 103 U/L (45-117); Anion Gap 1 (5-15); BUN 24 mg/dL (7-18); BUN/Creat Ratio 25.5 RATIO (10-20); Chloride 109 mmol/L (98-107); Creatinine, Serum 0.94 mg/dL (0.55-1.02); EST Glomerular Filtration Rate 62 mL/min (>60); Est Glom Filt Rate - Afr Amer 75 mL/min (>60); Estimated Creatinine Clearance 41.53 ml/min; Glucose 103 mg/dL (74-106); Potassium 4.6 mmol/L (3.5-5.1); Protein, Total 6.5 g/dL (6.4-8.2); Sodium Level 145 mmol/L (136-145)
[2020-11-16 14:04] LABS: Lactic Acid 1.7 mmol/L (0.4-1.9)
[2020-11-16 14:16] VITALS: BP 121/76; PULSE 74; RESP 22; O2SAT 93
[2020-11-16 14:28] VITALS: BP 121/76; BP 123/73
[2020-11-16 14:29] LABS: Partial Thromboplast Time 28.2 Seconds (24.1-36.2)
[2020-11-16 14:34] LABS: International Normalized Ratio 1.1
== END 2020-11-16 14:52 | disposition home or self-care (01) ==
PROVIDERS: Emergency Provider Emergency Medicine; PCP Family Medicine
DX: U07.1 COVID-19 (principal); N39.0 Urinary tract infection, site not specified; G80.1 Spastic diplegic cerebral palsy; R31.9 Hematuria, unspecified; R19.7 Diarrhea, unspecified; E03.9 Hypothyroidism, unspecified; K21.9 Gastro-esophageal reflux disease without esophagitis; F32.9 Major depressive disorder, single episode, unspecified; Z79.82 Long term (current) use of aspirin; Z79.899 Other long term (current) drug therapy
CPT/HCPCS: 71045; 80053; 81001; 83605; 84484; 85025; 85610; 85730; 87040; 87086; 87088; 87186; 87426; 93005; 96360; 99284; J7030

== ENCOUNTER → 2020-11-24 13:11 | Outpatient (CLI) | payer MEDICARE, MEDICAID, SELFPAY ==
[2020-11-16 12:28] VITALS: BMI 21.9
--- NOTE | 2020-11-24 13:15 | SP.MBSS_ITS ---
Modified Barium Swallow - Patient Information Study Date: 11/24/20 Study Time: 13:00 Direct Billable Minutes: 150 Total Minutes procedure & reportin Diagnosis: Dysphagia Referring Physician: Keysha Klein Reason for Referral: objective assessment of swallow function under fluoroscopy d/t frequent coughing/choking w/ PO intake Medical History: anemia, acid reflux, depression, anxiety, SOB, hypothyroidism, cerebral palsy w/ spastic/ataxic diplegia Current Diet Ordered: soft bite sized textures/mildly thick liquids Dentition: Natural Teeth, Missing Teeth Mental Status: WNL Comment: complicated by hearing impairment/cerebral palsy Respiratory Status: Oxygenating on Room Air - Penetration-Aspiration Scale Penetration-Aspiration Scale: OBJECTIVE ASSESSMENT OF SWALLOW FUNCTION (QUANTITATIVE ? PER TRIAL): PENETRATION / ASPIRATION SCALE (STAHL): 1 = does not enter airway 2 = enters airway/above vocal folds/ejected 3 = enters airway/above vocal folds/not ejected 4 = enters airway/contacts vocal folds/ejected 5 = enters airway/contacts vocal folds/not ejected 6 = enters airway/below vocal folds/ejected 7 = enters airway/below vocal folds/not ejected despite effort 8 = enters airway/below vocal folds/no effort VIDEOFLOROSCOPIC SCALE SCORE (STAHL): Grade I = aspiration of material that has penetrated into the laryngeal vestibule, intact cough reflex Grade II = aspiration < 10 % of the bolus, intact cough reflex Grade III = aspiration of < 10 % of the bolus, reduced cough reflex or aspiration of > 10 % of the bolus, intact cough reflex Grade IV = aspiration of > 10 % of the bolus, reduced cough reflex - Penetration-Aspiration Scale Score Thin Liquid via teaspoon Result: 7= enters airways/below vocal folds/not ejected despite effort Comment: Grade III = aspiration of < 10 % of the bolus, reduced cough reflex Sunsites Thick Liquid via teaspoon Result: 5= enters airways/contacts vocal folds/not ejected Sunsites Thick Liquid via sequential sips from straw Result: 8= enters airway/below vocal folds/no effort Comment: Grade III = aspiration of < 10 % of the bolus, reduced cough reflex Sunsites Thick Liquid via single sip from straw Result: 8= enters airway/below vocal folds/no effort Comment: Grade III = aspiration of < 10 % of the bolus, reduced cough reflex Honey Thick Liquid via single sip from straw Result: 5= enters airways/contacts vocal folds/not ejected Honey Thick Liquid via single sip from straw Trial 2 Result: 5= enters airways/contacts vocal folds/not ejected Pudding Result: 2= enter airway/above vocal folds/ejected Cookie Result: 8= enters airway/below vocal folds/no effort Comment: Grade III = aspiration of < 10 % of the bolus, reduced cough reflex Honey Thick Liquid via single sip from straw Trial 3 Result: 8= enters airway/below vocal folds/no effort Comment: Grade III = aspiration of < 10 % of the bolus, reduced cough reflex Honey Thick Liquid via teaspoon Result: 8= enters airway/below vocal folds/no effort Comment: Grade III = aspiration of < 10 % of the bolus, reduced cough reflex - Oral Phase Labial Seal: Interlabial escape, no progression to anterior lip Tongue Control During Bolus Hold: Posterior escape of greater than half of bolus Bolus Preparation/Mastication: Disorganized chewing/mashing with solid pieces of bolus unchewed Bolus Transport/Lingual Motion: Repetitive/disorganized tongue motion Oral Residue: Residue collection on oral structures - Pharyngeal Phase Initiation of Pharyngeal Swallow: Bolus head in pyriforms Soft Palate Elevation: Escape to nasopharynx Laryngeal Elevation: Partial superior movement thyroid cart/partial apprx aryt- epig petiole Anterior Hyoid Excursion: Partial anterior movement Epiglottic Movement: Partial inversion Laryngeal Vestibule Closure at Height of Swallow: Incomplete; narrow column of air/contrast in laryngeal vestibule Pharyngeal Stripping Wave: Absent Pharyngoesophageal Segment Opening: Minimal distension and minimal duration; marked obstruction of flow Tongue Base Retraction: Wide column of contrast between tongue base & post. pharyngeal wall Pharyngeal Residue: Majority of contrast within or on pharyngeal structures - Esophageal Phase Esophageal Clearance: Esophageal retention - difficult to assess d/t patient positioning/frequent movement t/o study - Treatment Strategies Effects of treatment strategies attemped:: liquid presentation vis teaspoon = effective to improve oral control, reduce premature pharyngeal bolus entry/penetration during the swallow slow rate = effective to allow increased time to clear pharyngeal residue cued reswallow = effective when able to elicit to reduce pharyngeal residue - Diagnosis/Impression Diagnosis: moderate to severe oropharyngeal dysphagia Impression: This patient presents with moderate to severe oropharyngeal dysphagia secondary to a a diagnosis of cerebral palsy. Swallow function is marked by: * insufficient mastication of solids w/ pieces remaining partially unchewed upon transfer to the pharynx * mod oral residue retention * reduced base of tongue retraction and incomplete velopharyngeal port closure w/ contrast penetrating into the nasopharynx during deglutition * reduced hyolaryngeal excursion * absent pharyngeal stripping wave * poor pharyngeal contraction/pressure d/t reduce base of tongue retraction/hyolaryngeal excursion/stripping wave w/ insufficient distention/duration of PES opening * laryngeal vestibule penetration and subsequent aspiration (SILENT ASPIRATION) occurred during the swallow d/t insufficient arytenoid to epiglottic petiole contact, with additional penetration entering the laryngeal vestibule posteriorly from contrast retained w/in the pyriform sinuses resulting in silent aspiration post deglutition * interpretation of imaging was complicated by shoulder positioning and frequent motion * severe pharyngeal residue retention, worse w/ solids than pudding/liquids d/t insufficient bolus prep prior to swallow onset Aspiration across all trials was less than 10% of each bolus. Highest risk for aspiration was identified w/ solid textures due to insufficient mastication and poor pharyngeal clearance, placing the patient at high risk for airway obstruction. - Recommendations Diet: Puree Textures, Honey-thick Liquids - Moderately Thick Compensatory Strategies: Small Bites, Small Sips, Liquid by Teaspoon Only, Slow Rate, Sitting upright, Remain sitting upright for 30 minutes after PO intake - 30-60 minutes Supervision: 1:1 Close Supervision - w/ all bites/sips by teaspoon; feed/assist by staff Recommend Repeat Modified Barium Swallow: Yes Need for Skilled Speech Therapy Services: Yes Comment: Would benefit from home health speech therapy to assess diet tolerance and provide additional education re: diet texture modification and compensatory techniques to reduce aspiration risk. Education Completed: 1. Described result of evaluation., 2. Pt understands evaluation & agrees with goals and treatment plan., 4. Family/caregivers understand evaluation & agree w/ goals & tx plan., 7. Pt requires further ed ucation on strategies & risks. Comment: Results and recommendations were discussed w/ the patient and accompanying caregiver, Guerline Maguire, immediately following MBS completion. Findings were additionally discussed w/ the patient's court appointed guardian, Gretchen Romo, via telephone. Conveyed concern re: high risk for aspiration and associated complications. The patient was identified to be at risk to aspirate across all consistencies assessed. Education provided re: findings and highly encourage decision making re: quality vs. quantity of life and terminal operations manager plans for alternative means of nutrition/hydration vs. continuation of PO intake for comfort and pleasure with understanding of the potential serious risks/complications that may arise from this decision - aspiration/pneumonia/. It is suspected that the patient has been aspirating for quite some time and that these findings are not new/acute in nature, but rather continuation a progressively worsening function over time. Strongly encourage close assessment/monitoring of pulmonary status and body temperature which may serve as early indicators of diet intolerance. Gretchen requested this the findings be shared w/ this patient's nurse, Annetta Riojas. A telephone call was placed to Annetta, results were discussed & a copy of the report was sent to the referring physician electronically and a copy was additionally faxed to [facility]/Annetta Riojas. Additional education information re: diet texture/liquid consistency preparation was provided to Guerline Maguire via email. It was a pleasure to meet and work with Franchesca for completion of this Modified Barium Swallow Study - please do not hesitate to reach out with any additional questions or concerns. - Image Count: [id number] - Status Active ST Patient: Active - Contact Information [facility] Therapy:: Annamaria Boss M.A., CCC-[employer] [facility] [address] [place] [address] .[employer]
== END ==
PROVIDERS: PCP Family Medicine; Referring Provider Family Medicine; Visit Provider Family Medicine
DX: R13.10 Dysphagia, unspecified (principal); G80.9 Cerebral palsy, unspecified
CPT/HCPCS: 74230; 92611

== ENCOUNTER → 2021-01-16 09:59 | Outpatient (CLI) | payer MEDICARE, MEDICAID, SELFPAY ==
[2021-01-16 12:25] LABS: Absolute Lymphocyte Count 1.84 X10^3/uL (0.83-4.51); Absolute Neutrophil Count 3.9 X10^3/uL (2.0-7.7); Basophil# 0.06 X10^3/uL; Basophil% 0.8 % (0-1); Eosinophil# 0.35 X10^3/uL; Eosinophils% 4.8 % (0-5); Hematocrit 46.8 % (37-47); Lymphocyte # 1.84 X10^3/ul (0.83-4.51); Lymphocyte % 25.2 % (19-41); Mean Corp Hgb Conc 29.9 g/dL (32-36); Mean Corpuscular Hgb 26.7 pg (27.0-32.0); Mean Corpuscular Volume 89.3 fL (81-99); Mean Platelet Vol. 11.8 fl (6.2-12.0); Monocyte# 1.13 X10^3/uL; Monocyte% 15.5 % (0-10); NRBC Flagged by Analyzer 0 % (0-5); Neutrophil # 3.91 X10^3/uL (2.7-7.7); Neutrophil % 53.4 % (47-70); Platelet Count 254 K/mm3 (150-450); RBC Distribution Width CV 14.8 % (11.6-14.6); RBC Distribution Width SD 48.5 fl (35.1-43.9); Red Blood Count 5.24 M/mm3 (4.2-5.4); White Blood Count 7.3 K/mm3 (4.4-11.0)
== END ==
PROVIDERS: PCP Family Medicine; Referring Provider Family Medicine; Visit Provider Family Medicine
DX: T14.8XXA Other injury of unspecified body region, initial encounter (principal); X58.XXXA Exposure to other specified factors, initial encounter; Y93.9 Activity, unspecified; Y92.9 Unspecified place or not applicable; Y99.9 Unspecified external cause status
CPT/HCPCS: 36415; 85025

== ENCOUNTER → 2021-04-06 14:33 | Outpatient (CLI) | payer MEDICARE, MEDICAID, SELFPAY ==
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
[2021-04-06 18:08] LABS: Thyroid Stim Hormone (TSH) 0.56 uIU/mL (0.358-3.74)
== END ==
PROVIDERS: PCP Family Medicine; Referring Provider Family Medicine; Visit Provider Family Medicine
DX: R10.9 Unspecified abdominal pain (principal); E03.9 Hypothyroidism, unspecified
CPT/HCPCS: 36415; 74018; 84443

== ENCOUNTER → 2021-06-23 15:35 | Outpatient (CLI) | payer MEDICARE, MEDICAID, SELFPAY ==
[2021-06-23 18:07] LABS: AST(SGOT) 15 U/L (15-37); Alanine Aminotransfer ALT/SGPT 19 U/L (13-56); Albumin, Serum 3.2 g/dL (3.2-5.0); Alkaline Phosphatase 115 U/L (45-117); Free T3 2.6 pg/mL (2.18-3.98); Globulin 3.6 g/dL (2.2-4.2); Prealbumin 19.9 mg/dL (20.0-40.0); Protein, Total 6.8 g/dL (6.4-8.2); T4 Free Direct 1.22 ng/dL (0.76-1.46); Thyroid Stim Hormone (TSH) 0.56 uIU/mL (0.358-3.74)
== END ==
PROVIDERS: PCP Family Medicine; Visit Provider Family Medicine
DX: E03.9 Hypothyroidism, unspecified (principal); R63.4 Abnormal weight loss
CPT/HCPCS: 36415; 80076; 84134; 84439; 84443; 84481

== ENCOUNTER 2021-07-20 18:11 | Emergency (ER) | payer OTHER, MEDICARE, MEDICAID, SELFPAY ==
[2021-07-20 18:12] VITALS: BP 138/112; PULSE 75; RESP 18; TEMP 36.7; O2SAT 97; BMI 15.7
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
[2021-07-20 21:43] VITALS: RESP 16
== END 2021-07-20 21:44 | disposition home or self-care (01) ==
LOC: ED 20:42
PROVIDERS: Emergency Provider Student in an Organized Health Care Education/Training Program; PCP Family Medicine
DX: M25.511 Pain in right shoulder (principal); S40.011A Contusion of right shoulder, initial encounter; V43.62XA Car passenger injured in collision with other type car in traffic accident, initial encounter; Y93.9 Activity, unspecified; Y92.410 Unspecified street and highway as the place of occurrence of the external cause; Y99.9 Unspecified external cause status; G80.1 Spastic diplegic cerebral palsy; E03.9 Hypothyroidism, unspecified; F32.A Depression, unspecified; F41.9 Anxiety disorder, unspecified; K21.9 Gastro-esophageal reflux disease without esophagitis; Z79.82 Long term (current) use of aspirin; Z79.1 Long term (current) use of non-steroidal anti-inflammatories (NSAID); Z79.890 Hormone replacement therapy; Z79.899 Other long term (current) drug therapy
CPT/HCPCS: 73030; 99282

== ENCOUNTER 2021-08-09 15:02 | Emergency (ER) | payer OTHER, MEDICARE, MEDICAID, SELFPAY ==
[2021-08-09 15:03] VITALS: BP 99/75; PULSE 83; RESP 16; TEMP 36.7; O2SAT 95; BMI 17.0
--- NOTE | 2021-08-09 15:40 | EX.ED.GENINJ ---
HPI History of Present Illness Chief Complaint: Head Injury Informant: other (Caregiver from detention) Onset/Context/Timing Onset: Today Mechanism/Context: Fall Location: Face and head Worsened by: Nothing Relieved by: Nothing Associated Symptoms Associated Symptoms: Negative for Parasthesias, Weakness and Loss of consciousness Narrative Narrative: Patient presents after head injury that occurred today. Patient was in a wheelchair in a van when she fell forward. Patient hit her head. Patient has a history of MRDD and is a poor historian. Caregiver that is with her is unsure if the patient had any loss of consciousness. Caregiver states the patient is acting like her normal self at this time. Caregiver is also unsure of when the patient's last tetanus booster was. Caregiver denies any paresthesias or weakness. [facility] Medical History Abdominal pain Acid reflux Anxiety Blood in stool Cerebral palsy with spastic/ataxic diplegia Constipation Depression Diarrhea Hypothyroid Left hip pain Nausea SOB (shortness of breath) Thyroid disease Home Medications aspirin 81 mg PO BID 01/06/14 [History Last Taken Unknown] citalopram 20 mg PO DAILY 01/06/14 [History Last Taken Unknown] diazepam 5 mg PO BID 01/06/14 [History Last Taken Unknown] levothyroxine 25 mcg PO DAILY 01/06/14 [History Last Taken Unknown] loratadine 10 mg PO DAILY 01/06/14 [History Last Taken Unknown] propranolol 10 mg PO BID 01/06/14 [History Last Taken 11/28/18 06:30] meloxicam 7.5 mg PO BID 09/28/15 [History Last Taken Unknown] polyethylene glycol 3350 17 gram oral powder packet 17 g PO DAILY 11/13/18 [History Last Taken Unknown] acetaminophen 100 mg PO Q4H PRN PRN 11/27/18 [History Last Taken Unknown] ergocalciferol (vitamin D2) 50,000 unit PO QMONTH 11/27/18 [History Last Taken Unknown] simethicone 160 mg PO TID 11/27/18 [History Last Taken Unknown] chlorhexidine gluconate 15 ml PO BID PRN 11/11/19 [History Last Taken Unknown] ibuprofen 800 mg PO TID PRN PRN #20 tab 02/25/20 [Rx Last Taken Unknown] omeprazole 20 mg PO DAILY 09/14/20 [History Last Taken Unknown] valacyclovir 500 mg PO DAILY 09/14/20 [History Last Taken Unknown] acetaminophen 650 mg GT Q6H PRN PRN #400 ml 10/09/20 [Rx Last Taken Unknown] cephalexin 500 mg PO Q12 #14 cap 11/16/20 [Rx Last Taken Unknown] Allergy/AdvReac Type Severity Reaction Status Date / Time No Known Allergies Allergy Verified 07/20/21 18:12 Surgical History Hx of tooth extraction Social History Smoking Status: Never smoker second hand exposure: No alcohol intake: never substance use type: does not use caffeine: No frequency: does not exercise ROS ROS ED Review of Systems ROS Unobtainable: due to mental condition Constitutional Constitutional ED: Denies chills or fever(s) Respiratory/Chest Respiratory/Chest: Denies dyspnea Gastrointestinal Gastrointestinal: Denies nausea or vomiting Musculoskeletal Musculoskeletal: Denies back pain or neck pain EXAM Physical Exam Const Vital Signs: 08/09/21 15:03 08/09/21 16:43 Temperature 98.1 F Temperature Source Temporal Pulse Rate 83 Respiratory Rate 16 Respiratory Effort Normal Respiratory Depth Normal Respiratory Pattern Normal Blood Pressure 99/75 Blood Pressure Mean 83 Pulse Ox 95 Oxygen Delivery Method Room Air Room Air Positive well nourished and well developed General Appearance ED: well developed HEENT HEENT Narrative: There is some ecchymosis over the left infraorbital area. There is no bony crepitance or step-off. There is a 1 cm linear laceration over the medial aspect of the left supraorbital area. There is mild bleeding. There are no foreign bodies. There is no bony crepitance or step-off. Eyes PERRL and EOMs intact bilaterally Neck full ROM Resp normal respiratory effort and clear to auscultation bilaterally Cardio regular rhythm Rate: regular rate Neuro CN's II-XII intact bilaterally, moves all extremities and no focal motor deficits Sensorium / Orientation: alert PROC Procedures Lacerations Left eyebrow: Length: 1 cm Depth: Skin Shape: Linear Prep: Chlorhexadine Laceration repair: Dermabond MDM MDM MDM Narrative Medical decision making narrative: The laceration was cleaned with chlorhexidine. Wound was explored. There are no foreign bodies. There are no fractures. The wound was closed with Dermabond skin adhesive. Patient tolerated the procedure well. CT scan of the brain was obtained. There is no acute intracranial abnormality. There is some soft tissue swelling. There is no fracture. Caregiver was advised of the findings. Caregiver was instructed to avoid Neosporin, bacitracin, triple antibiotic ointment, or any Vaseline-based ointment. Caregiver was instructed to follow-up with the patient's primary care physician in 5 to 7 days. Caregiver understood and was agreeable with the plan. All questions were answered. Radiography Diagnostic Testing: Clinical Impression(s) from Imaging Studies Brain CT 08/09/21 15:49 IMPRESSION: Mild soft tissue swelling of the left forehead without associated skull fracture Mild periventricular white matter ischemic change. No evidence for acute intracranial hemorrhage Electronically Signed: Farshad Wheatley MD at 16:54 EST , Service support , Discharge Plan Triage Chief Complaint: Head Injury ED Provider: Tenzin King Dx/Rx/DC Orders Clinical Impression: Closed head injury, Laceration of left eyebrow Instructions: ED Facial Contusion, ED Laceration, Face: Skin Glue Prescriptions: No Action polyethylene glycol 3350 [Gavilax] 17 gram powder in packet 17 g PO DAILY RF: 0 aspirin 81 MG tablet,delayed release (DR/EC) 81 mg PO BID RF: 0 levothyroxine 88 MCG tablet 25 mcg PO DAILY RF: 0 citalopram 20 MG tablet 20 mg PO DAILY RF: 0 propranolol 20 MG tablet 10 mg PO BID RF: 0 loratadine 10 MG tablet 10 mg PO DAILY RF: 0 diazepam 5 MG tablet 5 mg PO BID RF: 0 meloxicam 7.5 MG tablet 7.5 mg PO BID RF: 0 acetaminophen 650 MG tablet extended release 100 mg PO Q4H PRN PRN (Reason: Pain Or Fever) RF: 0 ergocalciferol (vitamin D2) 50,000 UNIT capsule 50,000 unit PO QMONTH RF: 0 simethicone 80 MG tablet,chewable 160 mg PO TID RF: 0 chlorhexidine gluconate 15 ML towelette 15 ml PO BID PRN (Reason: Mouth Irritation) RF: 0 ibuprofen 800 MG tablet 800 mg PO TID PRN PRN (Reason: Pain Score 1-10/10) Qty: 20 RF: 0 valacyclovir 500 MG tablet 500 mg PO DAILY RF: 0 omeprazole 20 MG capsule 20 mg PO DAILY RF: 0 acetaminophen 650 MG/20 ML solution 650 mg GT Q6H PRN PRN (Reason: Pain 1-10 Or Fever) Qty: 400 RF: 0 cephalexin 500 MG capsule 500 mg PO Q12 Qty: 14 RF: 0 Primary Care Provider: Keysha Klein Referrals: Keysha Klein MD [Primary Care Provider] - 5-7 Days Disposition Disposition: Home, Self Care
--- NOTE | 2021-08-09 15:49 | CT_ITS ---
STUDY: CT BRAIN WITHOUT CONTRAST REASON FOR EXAM: Female, 76 years old. Trauma RADIATION DOSAGE (If Supplied By Facility): CTDIvol = ( 47.06 ) mGy, DLP = ( 872.68 ) mGycm TECHNIQUE: Transaxial CT imaging of the brain was performed without administration of intravenous contrast material. Individualized dose optimization techniques were used for this CT. COMPARISON: 08/29/2017 FINDINGS: Mild soft tissue swelling of the left forehead without associated skull fracture. Normal size ventricles and extra-axial spaces for the patient''s age. Mild periventricular white matter ischemic changes.. Normal basal ganglia and thalami. Normal brainstem. Normal cerebellum. There is no intracranial hemorrhage. There are no findings of an acute ischemic infarction. Diffuse opacification of the sphenoid sinus.. CT/Brain/Head without Contrast IMPRESSION: Mild soft tissue swelling of the left forehead without associated skull fracture Mild periventricular white matter ischemic change. No evidence for acute intracranial hemorrhage Electronically Signed: Farshad Wheatley MD at 16:54 EST , Service support ,
--- NOTE | 2021-08-09 17:33 | NURSING ---
CALLED [facility], ETA IS 90 MIN
[2021-08-09 18:09] VITALS: BP 102/74; PULSE 82; RESP 15; O2SAT 98
== END 2021-08-09 18:09 | disposition home or self-care (01) ==
PROVIDERS: Emergency Provider Emergency Medicine; PCP Family Medicine
DX: S01.112A Laceration without foreign body of left eyelid and periocular area, initial encounter (principal); W05.0XXA Fall from non-moving wheelchair, initial encounter; Y93.9 Activity, unspecified; Y92.818 Other transport vehicle as the place of occurrence of the external cause; Y99.9 Unspecified external cause status; G80.1 Spastic diplegic cerebral palsy; E03.9 Hypothyroidism, unspecified; K21.9 Gastro-esophageal reflux disease without esophagitis; F79 Unspecified intellectual disabilities; F32.A Depression, unspecified; F41.9 Anxiety disorder, unspecified; Z79.82 Long term (current) use of aspirin; Z79.1 Long term (current) use of non-steroidal anti-inflammatories (NSAID); Z79.890 Hormone replacement therapy; Z79.899 Other long term (current) drug therapy
CPT/HCPCS: 12011; 70450; 99284

== ENCOUNTER 2021-08-23 10:30 | Emergency (ER) | payer OTHER, MEDICARE, MEDICAID, SELFPAY ==
[2021-08-23 10:31] VITALS: BP 109/66; PULSE 64; RESP 15; TEMP 35.6; O2SAT 97; BMI 21.5
--- NOTE | 2021-08-23 11:05 | CT_ITS ---
STUDY: CT BRAIN WITHOUT CONTRAST REASON FOR EXAM: Female, 76 years old. Trauma RADIATION DOSAGE (If Supplied By Facility): CTDIvol = ( 44.99 ) mGy, DLP = ( 1558.47 ) mGycm TECHNIQUE: Transaxial CT imaging of the brain was performed without administration of intravenous contrast material. Individualized dose optimization techniques were used for this CT. COMPARISON: Comparison is made with prior study dated 08/09/2021. FINDINGS: Normal soft tissue structures. Normal calvarium. There is mild cerebral atrophy with widening of the extra-axial spaces and ventricular dilatation. Normal white matter tracts of the cerebral hemispheres. Normal basal ganglia and thalami. Normal brainstem. Normal cerebellum. There is no intracranial hemorrhage. There are no findings of an acute ischemic infarction. There is opacification of the sphenoid sinus. CT/Brain/Head without Contrast IMPRESSION: Chronic involutional changes of the brain. Electronically Signed: Emiliano Jauregui MD at 12:33 EST , Service support ,
--- NOTE | 2021-08-23 11:08 | EDS_ITS ---
HPI History of Present Illness Chief Complaint: Head Injury Informant: patient and other Onset/Context/Timing Onset: Today Mechanism/Context: Blunt Injury Current Severity: Mild Maximum Severity: Mild Associated Symptoms Associated Symptoms: Negative for Parasthesias, Weakness, Loss of function, Inability to ambulate and Loss of consciousness Narrative Narrative: 76-year-old female lives at a local intermediate. She has a history of cerebral palsy. And does have falls from time to time. They help her with her gait. Today she was walking fell backwards striking the back of her head. Reportedly no LOC. She is on aspirin but not believed to be on any other blood thinners. Patient does not communicate well due to her speech and most of the history is obtained from the intermediate facility staff is with her in the emergency department. She had a fall in the last several weeks where she struck the left side of her face and has bruising. Prior similar symptoms: Yes Recent Illness/Hospitalization: No PFSH PFS Medical History Abdominal pain Acid reflux Anxiety Blood in stool Cerebral palsy with spastic/ataxic diplegia Constipation Depression Diarrhea Hypothyroid Left hip pain Nausea SOB (shortness of breath) Thyroid disease Home Medications aspirin 81 mg PO DAILY 01/06/14 [History Last Taken Unknown] citalopram 20 mg PO DAILY 01/06/14 [History Last Taken Unknown] diazepam 5 mg PO BID 01/06/14 [History Last Taken Unknown] levothyroxine 25 mcg PO DAILY 01/06/14 [History Last Taken Unknown] loratadine 10 mg PO DAILY 01/06/14 [History Last Taken Unknown] propranolol 10 mg PO BID 01/06/14 [History Last Taken 11/28/18 06:30] ergocalciferol (vitamin D2) 50,000 unit PO QMONTH 11/27/18 [History Last Taken Unknown] simethicone 160 mg PO TID 11/27/18 [History Last Taken Unknown] omeprazole 20 mg PO DAILY 09/14/20 [History Last Taken Unknown] acetaminophen 500 mg PO TID 08/23/21 [History Last Taken Unknown] Allergy/AdvReac Type Severity Reaction Status Date / Time No Known Allergies Allergy Verified 08/23/21 10:33 Surgical History Hx of tooth extraction Social History Smoking Status: Never smoker second hand exposure: No alcohol intake: never substance use type: does not use caffeine: No frequency: does not exercise ROS ROS ED ROS Narrative Staff deny recent illness. Review of Systems ROS Unobtainable: Denies due to encephalopathy Constitutional Constitutional ED: Denies fever(s) Eyes Eyes: Denies change in vision ENT ENT ED: Denies ear pain Cardiovascular Cardiovascular: Denies chest pain Respiratory/Chest Respiratory/Chest: Denies dyspnea Gastrointestinal Gastrointestinal: Denies abdominal pain Genitourinary Genitourinary ED: Denies dysuria Musculoskeletal Musculoskeletal: Denies myalgias Integumentary Denies rash Neurologic Neurologic: Reports headache(s) Psychiatric Psychiatric: Denies depression Endocrine Endocrinology: Denies polyuria Hematologic/Lymphatic Hematologic/Lymphatic: Denies easy bruising Allergic/Immunologic Allergic/Immunologic ED: Denies urticaria EXAM Physical Exam Narrative Exam Narrative: 36-year-old female no acute distress. Vital signs stable afebrile. HEENT exam pupils round reactive light. She has old laceration is healing on her left medial eyebrow and bruising her left cheek again atoll old. Extra motions are intact. No acute dental injury. Posterior scalp she has got a small hematoma size of a quarter. There is no laceration. No blood. C-spine nontender trachea midline. Lungs clear to auscultation bilaterally. Heart regular rhythm. Rate about 60. Chest wall nontender. Abdomen soft nontender. Pelvic girdle intact nontender. No shortening or rotation or deformity of either hip. Both upper and lower extremities are nontender. She is able to dorsi and plantar flexion. She has plant control aide strength bilaterally. Back nontender no bruising no spine tenderness. Neurologically she is awake. Her eyes are open. She follows commands. This is her baseline mental status according the staff. Const Vital Signs: 08/23/21 10:31 08/23/21 10:56 Temperature 96.1 F L Temperature Source Temporal Pulse Rate 64 Respiratory Rate 15 Respiratory Effort Normal Non-Labored Respiratory Depth Normal Respiratory Pattern Normal Blood Pressure 109/66 Blood Pressure Mean 80 Pulse Ox 97 Oxygen Delivery Method Room Air Room Air Positive well nourished and well developed; Negative for obese, cachectic, contractures or unkempt General Appearance ED: well developed and NAD; Negative for unkempt, cachectic or contractures Nutritional Appearance: Negative for cachectic or obese HEENT HEENT Narrative: Left facial bruising which is old. Posterior scalp small hematoma about the size of a quarter. No laceration. trauma and tenderness; Negative for atraumatic Eyes PERRL and EOMs intact bilaterally Neck full ROM General: Negative for tenderness Chest Wall inspection of chest normal and palpation of chest normal Resp normal respiratory effort and clear to auscultation bilaterally Auscultation: Negative for rales, rhonchi or wheezes Cardio regular rhythm, S1 normal heart sound, S2 normal heart sound and no murmurs Rate: regular rate GI normal to inspection, nondistended, normoactive bowel sounds, non-tender, non- distended and no masses Auscultation: normoactive bowel sounds Palpation: soft; Negative for tender, guarding or rebound tenderness present Back/Spine normal to inspection and no thoracic nor lumbar tenderness General Back: Negative for CVA tenderness Thoracic Spine / Upper Back: Negative for thoracic spinal tenderness Extremity normal to inspection and full ROM Extremity Narrative: Nontender extremities. Nontender hips. General Extremety ED: Negative for deformity, edema or tenderness General Extremity: Negative for deformity or edema Neuro no focal motor deficits Sensorium / Orientation: alert Psych mental status grossly normal Appearance: Negative for unkempt Skin no rashes or lesions noted and No no wounds Skin Narrative: Left facial bruising. Old laceration left eyebrow healing. Contusion posterior scalp. Wounds: wounds noted MDM MDM MDM Narrative Medical decision making narrative: 76-year-old female with a history of cerebral palsy with a history of falls. CAT scan of be obtained due to her head injury today. Repeat exam unchanged at 1:40 PM. CAT scan is read by the radiologist showed no acute abnormality. Patient will be discharged back to the intermediate. Tylenol for pain. Head injury instructions. Radiography Diagnostic Testing: Clinical Impression(s) from Imaging Studies Brain CT 08/23/21 11:05 IMPRESSION: Chronic involutional changes of the brain. Electronically Signed: Emiliano Jauregui MD at 12:33 EST , Service support , Discharge Plan Triage Chief Complaint: Head Injury ED Provider: Josiah Salazar Dx/Rx/DC Orders Clinical Impression: Fall, Closed head injury Instructions: ED Head Injury (Adult) Prescriptions: No Action aspirin 81 MG tablet,delayed release (DR/EC) 81 mg PO DAILY RF: 0 levothyroxine 88 MCG tablet 25 mcg PO DAILY RF: 0 citalopram 20 MG tablet 20 mg PO DAILY RF: 0 propranolol 20 MG tablet 10 mg PO BID RF: 0 loratadine 10 MG tablet 10 mg PO DAILY RF: 0 diazepam 5 MG tablet 5 mg PO BID RF: 0 ergocalciferol (vitamin D2) 50,000 UNIT capsule 50,000 unit PO QMONTH RF: 0 simethicone 80 MG tablet,chewable 160 mg PO TID RF: 0 omeprazole 20 MG capsule 20 mg PO DAILY RF: 0 acetaminophen 500 mg Tablet 500 mg PO TID RF: 0 Primary Care Provider: Keysha Klein Referrals: Keysha Klein MD [Primary Care Provider] - 1 Week if not improving Activity Restrictions/Additional Instructions: Ice any bruising or swelling on her scalp. Tylenol for pain. Return if intractable vomiting or decreased mental status but at this time the CAT scans unremarkable. Disposition Disposition: Home, Self Care
== END 2021-08-23 13:57 | disposition home or self-care (01) ==
PROVIDERS: Emergency Provider Emergency Medicine; PCP Family Medicine
DX: S00.03XA Contusion of scalp, initial encounter (principal); S09.90XA Unspecified injury of head, initial encounter; W01.10XA Fall on same level from slipping, tripping and stumbling with subsequent striking against unspecified object, initial encounter; Z91.81 History of falling; M25.552 Pain in left hip; Y93.01 Activity, walking, marching and hiking; Y92.9 Unspecified place or not applicable; Y99.9 Unspecified external cause status; G80.9 Cerebral palsy, unspecified; E03.9 Hypothyroidism, unspecified; K21.9 Gastro-esophageal reflux disease without esophagitis; F32.A Depression, unspecified; F41.9 Anxiety disorder, unspecified; Z79.82 Long term (current) use of aspirin; Z79.890 Hormone replacement therapy; Z79.899 Other long term (current) drug therapy
CPT/HCPCS: 70450; 99281

== ENCOUNTER 2021-10-23 14:10 | Outpatient (CLI) | payer MEDICARE, MEDICAID, SELFPAY | END 2021-10-23 23:59 | disposition short-term general hospital (02) | LOC: LABSPEC 14:11 | PROVIDERS: PCP Family Medicine; Visit Provider Physician Assistant Surgical | DX: Z20.822 Contact with and (suspected) exposure to COVID-19 (principal) | CPT/HCPCS: 87635; U0003; U0005 ==

== ENCOUNTER 2022-02-02 10:01 | Emergency (ER) | payer MEDICARE, MEDICAID, SELFPAY ==
[2022-02-02 10:03] VITALS: BP 110/52; PULSE 90; RESP 18; TEMP 36.6; O2SAT 99; BMI 16.8
--- NOTE | 2022-02-02 10:21 | CT_ITS ---
STUDY: CT FACIAL BONES WITHOUT CONTRAST REASON FOR EXAM: Female, 76 years old. Facial trauma. Nosebleed. RADIATION DOSAGE (If Supplied By Facility): CTDIvol = ( 11.79 ) mGy, DLP = ( 212.62 ) mGycm TECHNIQUE: The patient was scanned in a multi detector CT scanner. Sagittal and coronal images were reconstructed. Individualized dose optimization techniques were used for this CT. COMPARISON: None. FINDINGS: Normal soft tissue structures. Normal orbital mcnally and orbital contents. Nondisplaced fracture along the tip of the nasal bone. Nasal septal deviation towards the right side of the midline. Normal facial bones. Opacification of the sphenoid sinus. CT/Sinus/Facial Bone IMPRESSION: Nondisplaced fracture of the tip of the nasal bone. Opacification of the ethmoid sinus. Electronically Signed: Emiliano Jauregui MD at 11:20 EDT ,
--- NOTE | 2022-02-02 10:22 | RAD_ITS ---
STUDY: X-RAY - RIGHT FEMUR REASON FOR STUDY: Female, 76 years old. Injury/Pain TECHNIQUE: 4 view(s) of the femur. COMPARISON: None. FINDINGS: Normal visualized femur. Normal visualized soft tissue structure. RAD/Femur Min 2 Views IMPRESSION: Normal x-ray examination of the femur. Electronically Signed: Emiliano Jauregui MD at 11:14 EDT ,
--- NOTE | 2022-02-02 10:22 | CT_ITS ---
STUDY: CT CERVICAL SPINE WITHOUT CONTRAST REASON FOR EXAM: Female, 76 years old. Nosebleed following a fall. RADIATION DOSAGE (If Supplied By Facility): CTDIvol = ( 29.38 ) mGy, DLP = ( 1271.22 ) mGycm TECHNIQUE: High resolution transaxial imaging was performed without contrast material. Sagittal and coronal images were reconstructed. Individualized dose optimization techniques were used for this CT. COMPARISON: None FINDINGS: Normal craniovertebral junction. There are degenerative changes of the anterior atlantoaxial articulation. Normal odontoid process. There is an exaggerated cervical lordosis. Normal vertebral bodies and posterior osseous elements. C2-3: Facet joint osteoarthritis and hypertrophy worse on the right side. C3-4: Moderate degree of disc space narrowing. Spondylosis. Marked degree of right-sided hypertrophy of the facet joints causing a marked degree of right neural foraminal stenosis. C4-5: Moderate degree of disc space narrowing. Facet joint osteoarthritis and hypertrophy. There is evidence of an old transverse fracture through the proximal aspect of the lateral mass on the left side of the C5 vertebrae. C5-6: Marked degree of disc space narrowing. Facet joint osteoarthritis and hypertrophy with bilateral neural foraminal stenosis. C6-7: Marked degree of disc space narrowing. Severe facet joint osteoarthritis and hypertrophy. Vascular calcification. CT/Spine Cervical without Contras IMPRESSION: Multilevel degenerative changes, as described above. Findings suggestive of a nondisplaced transverse fracture through the proximal aspect of the lateral mass of the C5 vertebrae on the left side. Electronically Signed: Emiliano Jauregui MD at 11:19 EDT ,
--- NOTE | 2022-02-02 10:22 | RAD_ITS ---
STUDY: X-RAY - PELVIS REASON FOR EXAM: Female, 76 years old. Injury/Pain TECHNIQUE: One view of the pelvis was obtained. COMPARISON: None. FINDINGS: There is a non-specific bowel gas pattern. Normal visualized soft tissue structures. Normal bilateral iliac wings, sacroiliac joints and visualized sacrum. Normal visualized bilateral superior and inferior pubic rami. Normal pubic symphysis. Normal ischial tuberosities. Normal visualized right femoral head. Normal right acetabulum. There is mild articular joint space narrowing of the right hip. Normal visualized left femoral head. Normal left acetabulum. There is mild articular joint space narrowing of the left hip. RAD/Pelvis 1 or 2 Views IMPRESSION: No acute abnormalities. Electronically Signed: Emiliano Jauregui MD at 11:21 EDT ,
--- NOTE | 2022-02-02 10:22 | CT_ITS ---
STUDY: CT BRAIN WITHOUT CONTRAST REASON FOR EXAM: Female, 76 years old. Injury/Pain RADIATION DOSAGE (If Supplied By Facility): CTDIvol = ( 44.99 ) mGy, DLP = ( 863.60 ) mGycm TECHNIQUE: Transaxial CT imaging of the brain was performed without administration of intravenous contrast material. Individualized dose optimization techniques were used for this CT. COMPARISON: Comparison is made with prior study dated 08/23/2021. FINDINGS: Normal soft tissue structures. There is hyperostosis frontalis internus. There is mild cerebral atrophy with widening of the extra-axial spaces and ventricular dilatation. There are areas of decreased attenuation within the white matter tracts of the supratentorial brain, consistent with microvascular disease changes. Normal basal ganglia and thalami. Normal brainstem. Normal cerebellum. There is no intracranial hemorrhage. There are no findings of an acute ischemic infarction. Normal visualized paranasal sinuses. CT/Brain/Head without Contrast IMPRESSION: Chronic involutional changes of the brain. Electronically Signed: Emiliano Jauregui MD at 11:14 EDT ,
--- NOTE | 2022-02-02 10:27 | EX.ED.GENINJ ---
HPI History of Present Illness Chief Complaint: Fall Informant: patient and mental health staff Narrative Narrative: Patient is 76-year-old female with history of cerebral palsy presenting for evaluations after a fall. On Saturday, 4 days ago, patient apparently unstrapped her belt from her wheelchair and fell forward. There is no report of loss of consciousness. She did strike the front of her face. Patient lives at a alf, [facility]. She saw her primary care doctor on Saturday but has continued to cough up clots of blood from her nose so they were concerned and brought to the emergency room today. In addition patient had a hard time transferring with her right leg is been complaining of pain in her right leg. Patient is not on any blood thinners including Plavix or aspirin. Patient is minimally verbal at baseline however staff in the room feels that she is currently at her baseline [facility] Medical History Abdominal pain Acid reflux Anxiety Blood in stool Cerebral palsy with spastic/ataxic diplegia Constipation Depression Diarrhea Hypothyroid Left hip pain Nausea SOB (shortness of breath) Thyroid disease Home Medications aspirin 81 mg PO DAILY 01/06/14 [History Last Taken Unknown] citalopram 20 mg PO DAILY 01/06/14 [History Last Taken Unknown] diazepam 5 mg PO BID 01/06/14 [History Last Taken Unknown] levothyroxine 25 mcg PO DAILY 01/06/14 [History Last Taken Unknown] loratadine 10 mg PO DAILY 01/06/14 [History Last Taken Unknown] propranolol 10 mg PO BID 01/06/14 [History Last Taken 11/28/18 06:30] ergocalciferol (vitamin D2) 50,000 unit PO QMONTH 11/27/18 [History Last Taken Unknown] simethicone 160 mg PO TID 11/27/18 [History Last Taken Unknown] omeprazole 20 mg PO DAILY 09/14/20 [History Last Taken Unknown] acetaminophen 500 mg PO TID 08/23/21 [History Last Taken Unknown] Allergy/AdvReac Type Severity Reaction Status Date / Time No Known Allergies Allergy Verified 02/02/22 10:06 Surgical History Hx of tooth extraction Social History Smoking Status: Never smoker second hand exposure: No alcohol intake: never substance use type: does not use caffeine: No frequency: does not exercise ROS ROS ED Review of Systems ROS Unobtainable: due to mental status ENT ENT ED: Reports other Details: epistaxis Cardiovascular Cardiovascular: Denies chest pain Gastrointestinal Gastrointestinal: Denies vomiting Musculoskeletal Musculoskeletal: Reports neck pain and other Details: right hip/leg pain Integumentary Reports other Details: bruising nose Neurologic Neurologic: Denies headache(s) or weakness EXAM Physical Exam Const Vital Signs: 02/02/22 10:03 02/02/22 12:31 Temperature 97.9 F Temperature Source Temporal Pulse Rate 90 82 Respiratory Rate 18 18 Blood Pressure 110/52 L 106/58 L Blood Pressure Mean 71 Pulse Ox 99 95 Positive cachectic General Appearance ED: cachectic, NAD and other in home wheelchair Nutritional Appearance: cachectic HEENT Reports TM's clear HEENT Narrative: Patient has ecchymosis around the nose with some associated swelling of the bridge of the nose. There is dried blood noted in the left nares. There is some ecchymosis noted at the base of the septum but there is no obvious septal hematoma. Tympanic membranes are cloudy bilaterally but no obvious hemotympanum. Normal oropharynx. No blood appreciated in the oropharynx. trauma and tenderness Tympanic Membrane ED: Yes TM's clear Eyes PERRL and EOMs intact bilaterally Neck full ROM Neck Narrative: Mild diffuse posterior neck tenderness. No step-off sign appreciated. Chest Wall inspection of chest normal Resp normal respiratory effort and clear to auscultation bilaterally Cardio regular rhythm and no murmurs Rate: regular rate GI normal to inspection, nondistended, normoactive bowel sounds and non-tender Palpation: soft Extremity Extremity Narrative: Contractures in extremities. Decreased range of motion of the right leg is chronic however patient is able to lift the leg and hold it in the air from her wheelchair. Tenderness of the distal femur on exam. No obvious joint effusion appreciated. No other bony tenderness. Neuro Neuro Narrative: Patient has slurred speech and decreased tone that are chronic and consistent with her history of spastic/ataxic cerebral palsy Sensorium / Orientation: alert and oriented to person Psych mental status grossly normal Skin Skin Narrative: Ecchymosis to the bridge of the nose. No abrasions appreciated MDM MDM MDM Narrative Medical decision making narrative: Patient is evaluated for epistaxis after facial injury from falling out of her wheelchair 4 days ago. She does not have any active bleeding at this time. I do not see an obvious septal hematoma. Clinically patient likely has a nasal fracture. Given her head injury I did obtain a head CT, C-spine and facial CT. X-ray of the femur and hip interpreted by myself aswell as radiology is negative for acute fracture. Patient's CT imaging shows a nondisplaced fracture of the tip of the nasal bone, opacification of ethmoid sinus as well as possible nondisplaced transverse fracture through the proximal aspect of the lateral mass of the C5 vertebrae on the left. Neck finding is discussed with spine surgery, Dr. Cherry, who reviewed the images himself. Patient does not have any focal neurologic deficits albeit it is difficult to perform a full neurologic exam due to patient's cerebral palsy. Dr. Cherry feels that this is likely a stable fracture and does not require any emergent intervention. Given that she is stable from her fall 4 days ago she can be discharged home with a soft collar. Caregivers informed of this plan of care. She is given outpatient follow-up for ENT as well as spine surgery. Counseled that she might have further nosebleeds but as they are not brisk I do not think packing is indicated at this time. Counseled on return precautions. Radiography Diagnostic Testing: Clinical Impression(s) from Imaging Studies Facial/Sinus 02/02/22 10:21 IMPRESSION: Nondisplaced fracture of the tip of the nasal bone. Opacification of the ethmoid sinus. Electronically Signed: Emiliano Jauregui MD at 11:20 EDT , Brain CT 02/02/22 10:22 IMPRESSION: Chronic involutional changes of the brain. Electronically Signed: Emiliano Jauregui MD at 11:14 EDT , Cervical Spine CT 02/02/22 10:22 IMPRESSION: Multilevel degenerative changes, as described above. Findings suggestive of a nondisplaced transverse fracture through the proximal aspect of the lateral mass of the C5 vertebrae on the left side. Electronically Signed: Emiliano Jauregui MD at 11:19 EDT , Femur X-Ray 02/02/22 10:22 IMPRESSION: Normal x-ray examination of the femur. Electronically Signed: Emiliano Jauregui MD at 11:14 EDT , Pelvis X-Ray 02/02/22 10:22 IMPRESSION: No acute abnormalities. Electronically Signed: Emiliano Jauregui MD at 11:21 EDT , Discharge Plan Triage Chief Complaint: Fall ED Provider: Jaki Uriostegui Dx/Rx/DC Orders Clinical Impression: Nasal bone fx-closed, Acute anterior epistaxis, C5 vertebral fracture Instructions: Fx Neck Spine, ED Epistaxis (Adult), ED Nose Fracture, with X-Ray Prescriptions: No Action aspirin 81 MG tablet,delayed release (DR/EC) 81 mg PO DAILY RF: 0 levothyroxine 88 MCG tablet 25 mcg PO DAILY RF: 0 citalopram 20 MG tablet 20 mg PO DAILY RF: 0 propranolol 20 MG tablet 10 mg PO BID RF: 0 loratadine 10 MG tablet 10 mg PO DAILY RF: 0 diazepam 5 MG tablet 5 mg PO BID RF: 0 ergocalciferol (vitamin D2) 50,000 UNIT capsule 50,000 unit PO QMONTH RF: 0 simethicone 80 MG tablet,chewable 160 mg PO TID RF: 0 omeprazole 20 MG capsule 20 mg PO DAILY RF: 0 acetaminophen 500 mg Tablet 500 mg PO TID RF: 0 Primary Care Provider: Keysha Klein Referrals: Michael Boston MD [STAFF PHYSICIAN] - 3-5 Days if not improving Keysha Klein MD [Primary Care Provider] - Farshad Cherry DO [STAFF PHYSICIAN] - (1-2 weeks ) Disposition Disposition: Home, Self Care Discharge Date/Time: 02/02/22 12:49
--- NOTE | 2022-02-02 10:51 | ED.RN ---
ATTEMPTED TO CALL LEGAL GUARDIAN FOR PERMISSION TO TREAT. NO ANSWER NOR OPTION TO LEAVE A MESSAGE
[2022-02-02 12:31] VITALS: BP 106/58; PULSE 82; RESP 18; O2SAT 95
== END 2022-02-02 12:49 | disposition home or self-care (01) ==
PROVIDERS: Emergency Provider Emergency Medicine; PCP Family Medicine; Visit Provider Emergency Medicine
DX: S02.2XXA Fracture of nasal bones, initial encounter for closed fracture (principal); S12.401A Unspecified nondisplaced fracture of fifth cervical vertebra, initial encounter for closed fracture; G80.1 Spastic diplegic cerebral palsy; R04.0 Epistaxis; M79.604 Pain in right leg; W05.0XXA Fall from non-moving wheelchair, initial encounter; Y92.129 Unspecified place in nursing home as the place of occurrence of the external cause; E03.9 Hypothyroidism, unspecified; Z79.82 Long term (current) use of aspirin; Z79.890 Hormone replacement therapy; Z79.899 Other long term (current) drug therapy
CPT/HCPCS: 70450; 70486; 72125; 72170; 73552; 99282

== ENCOUNTER 2022-02-17 16:06 | Emergency (ER) | payer MEDICARE, MEDICAID, SELFPAY ==
[2022-02-17 16:07] VITALS: BP 156/149; PULSE 115; RESP 17; TEMP 36.8; O2SAT 93; BMI 30.6
[2022-02-17 16:10] VITALS: BP 156/149; PULSE 115; RESP 17; TEMP 36.8; O2SAT 93
[2022-02-17 16:27] VITALS: BP 120/68
--- NOTE | 2022-02-17 16:27 | CT_ITS ---
STUDY: CT ABDOMEN AND PELVIS WITH CONTRAST REASON FOR EXAM: Female, 76 years old. abdominal pain. Diarrhea x1 week. RADIATION DOSAGE (If Supplied By Facility): CTDIvol = ( 5.90 ) mGy, DLP = ( 252.21 ) mGycm TECHNIQUE: Transaxial images were obtained from the dome of the diaphragm to the symphysis pubis without oral contrast. IV 75mL Isovue-[id number] was administered. Sagittal and coronal images were reconstructed. Individualized dose optimization techniques were used for this CT. COMPARISON: None. FINDINGS: The visualized lung bases are unremarkable. The visualized portions of the heart are within normal limits. Status post cholecystectomy. Mild intrahepatic biliary ductal dilatation. Liver otherwise enhances normally. Common duct 1.12 cm. Normal spleen. Borderline dilatation of pancreatic duct to 0.31 cm. Pancreatic atrophy which could be age related. Other etiology cannot be excluded. Normal bilateral adrenal glands. Normal right kidney. Normal left kidney. Stomach normal. There is moderate distention of the small and large bowel this extends to the sigmoid region. There is a large amount of stool within the more distal sigmoid colon and rectum. Findings may represent impaction. Alternatively findings involving large and small bowel represent moderate ileus. Normal abdominal aorta. Normal inferior vena cava. Normal retroperitoneum. Normal urinary bladder. Normal abdominal wall. Mild levoscoliosis lumbar spine. Moderate spondylosis lumbar spine. Moderate bilateral facet arthropathy and severe degenerative disc disease L5-S1 as well as at L2-3. Moderate degenerative disc disease remainder of lumbar spine. Atrophic uterus versus hysterectomy. CT/Abdomen/Pelvis W IV Cont ONLY IMPRESSION: Moderate distention of the large and small bowel extending to the sigmoid colon at which site there is moderate stool. Rule out impaction. Findings could represent small enlarged bowel obstruction or moderate ileus. Status post cholecystectomy. Mild intrahepatic biliary ductal dilatation with dilated common duct to 1.12 cm and borderline dilatation of pancreatic duct. While these findings could be related to cholecystectomy and age, respectively findings are of concern for double duct sign. Rule out occult mass of the distal common duct or pancreatic head versus distal common duct stricture versus occult impacted a recently passed calculus. Atrophic uterus versus hysterectomy. Degenerative changes of the lumbar spine detailed above. Electronically Signed: Ankur Ferrara MD, JIGNESH at 17:26 EDT ,
--- NOTE | 2022-02-17 16:28 | EDS_ITS ---
HPI HPI - GI History of Present Illness Chief Complaint: Abd Pain Narrative Narrative: 76-year-old female presenting for abdominal pain. She is a poor informant and unable to give any information about her history. This reported by her caregiver that she has had some diarrhea which is out of the norm for her and she usually requires something for constipation. No recent antibiotics that the caregiver knows of. She has not had any vomiting. Apparently the patient has been eating some and drinking some but this is sporadic. This morning she had eggs for breakfast but refused to finish her breakfast. About 30 to 40 minutes prior to arrival she started complaining of abdominal pain. She is unable to localize this. There is no known fevers. She has not been vomiting. [facility] Medical History (Updated 02/17/22 @ 20:[address] Alejandro Harmon, DO) Abdominal pain Acid reflux Anxiety Blood in stool Cerebral palsy with spastic/ataxic diplegia Constipation Depression Diarrhea Dysphagia Hard of hearing Hypothyroid Left hip pain Nausea Onychomycosis Severe mental handicap SOB (shortness of breath) Thyroid disease Home Medications citalopram 20 mg PO DAILY 01/06/14 [History Last Taken Unknown] diazepam 5 mg PO BID 01/06/14 [History Last Taken Unknown] levothyroxine 25 mcg PO DAILY 01/06/14 [History Last Taken Unknown] loratadine 10 mg PO DAILY 01/06/14 [History Last Taken Unknown] ergocalciferol (vitamin D2) 50,000 unit PO QMONTH 11/27/18 [History Last Taken Unknown] simethicone 160 mg PO TID 11/27/18 [History Last Taken Unknown] omeprazole 20 mg PO DAILY 09/14/20 [History Last Taken Unknown] acetaminophen 500 mg PO TID 08/23/21 [History Last Taken Unknown] oxycodone-acetaminophen [Percocet] 1 tab PO Q6H PRN 3 Days #12 tab 02/17/22 [Rx Last Taken Unknown] Allergy/AdvReac Type Severity Reaction Status Date / Time No Known Allergies Allergy Verified 02/02/22 10:06 Surgical History Hx of tooth extraction Social History Smoking Status: Never smoker second hand exposure: No alcohol intake: never substance use type: does not use caffeine: No frequency: does not exercise ROS ROS ED Review of Systems ROS Unobtainable: due to mental status Eyes Eyes: Denies blurry vision or change in vision Psychiatric Psychiatric: Denies suicidal ideation EXAM Physical Exam Const Vital Signs: 02/17/22 16:07 02/17/22 16:10 02/17/22 16:27 Temperature 98.2 F 98.2 F Temperature Source Temporal Temporal Pulse Rate 115 H 115 H Respiratory Rate 17 17 Blood Pressure 156/149 H 156/149 H 120/68 Blood Pressure Mean 151 151 85 Pulse Ox 93 93 Oxygen Delivery Method Room Air Room Air 02/17/22 17:10 02/17/22 19:40 Temperature 98.1 F 98.9 F Temperature Source Temporal Oral Pulse Rate 99 104 H Respiratory Rate 16 22 H Blood Pressure 112/78 122/79 H Blood Pressure Mean 89 93 Pulse Ox 96 92 Oxygen Delivery Method Room Air Room Air Positive cachectic Constitutional Narrative: Appears to be uncomfortable. General Appearance ED: cachectic and NAD; Negative for pallor Nutritional Appearance: cachectic HEENT Reports moist mucous membranes normocephalic and atraumatic Eyes PERRL and EOMs intact bilaterally General Eye ED: Negative for pale conjunctiva or scleral icterus Resp normal respiratory effort and clear to auscultation bilaterally Cardio regular rate Rate: tachycardic GI non-distended GI Narrative: Unable to localize abdominal pain. Abdomen is soft and not rigid. Palpation: soft Neuro moves all extremities Sensorium / Orientation: alert Psych Attitude: agitated Skin General Skin Exam: Negative for jaundice or pallor Lesions: no lesions Rashes: no rashes MDM MDM MDM Narrative Medical decision making narrative: Patient presenting with abdominal pain. Its hard to verify the location. It does not appear to be acutely in the right upper quadrant. Abdomen appears to be soft. Patient given morphine, Zofran, IV fluids. Blood work is obtained and her CBC and CMP were unremarkable. Renal function electrolytes are normal. Urinalysis negative for infection. CT of the abdomen pelvis is obtained which did show some concern for possible bowel obstruction however talking to the surgeon the areas of bowel that the radiologist speaking of seem to be chronically dilated. This did not appear to be new. There are some dilated ducts which the radiologist mentioned in his dictation. The right upper quadrant ultrasound was read as a limited study with no other input. I spoke with JOHN ARTHUR, who is the medical power of assistant attorney general for the patient. I discussed the fact that there could be some dilated ducts and possibly she could undergo MRCP/ERCP in the hospital however however she is a DNR comfort care. Her blood work all seems to be within normal limits. She recommended giving the patient something for pain for home she would determine whether the patient needed a palliative care/hospice consult if she continues to do poorly with her pain. She will reevaluate her after the holiday weekend. Impression: 1. Abdominal pain Lab Data Attestation: I reviewed the patient's lab results. Labs: Laboratory Results - last 24 hr 02/17/22 02/17/22 02/17/22 16:30 16:30 17:21 WBC 6.5 RBC 4.71 Hgb 13.4 Hct 42.5 MCV 90.2 MCH 28.5 MCHC 31.5 L RDW Std Deviation 46.2 H RDW Coeff of Timmy 13.8 Plt Count 294 MPV 10.5 Immature Gran % (Auto) 0.200 Neut % (Auto) 53.7 Lymph % (Auto) 29.1 [place] % (Auto) 13.0 H Eos % (Auto) 3.1 Baso % (Auto) 0.9 Absolute Neuts (auto) 3.5 Absolute Lymphs (auto) 1.90 Nucleated RBC % 0 Sodium 142 Potassium 4.5 Chloride 105 Carbon Dioxide 33.0 H Anion Gap 4 L BUN 16 Creatinine 0.80 Estim Creat Clear Calc 48.06 Est GFR (MDRD) Af Amer 90 Est GFR (MDRD) Non-Af 75 BUN/Creatinine Ratio 20.1 H Glucose 110 H Calcium 9.9 Total Bilirubin 0.60 AST 17 ALT 23 Alkaline Phosphatase 128 H Total Protein 7.0 Albumin 3.6 Globulin 3.4 Albumin/Globulin Ratio 1.1 Lipase 123 Urine Color Yellow Urine Clarity Clear Urine pH 6.0 Ur Specific [place] 1.020 Urine Protein 15 H Urine Glucose (UA) Normal Urine Ketones Negative Urine Occult Blood 10 H Urine Nitrite Negative Urine Bilirubin Negative Urine Urobilinogen Normal Ur Leukocyte Esterase 100 H Urine RBC 0-5 SEEN Urine WBC 5-10 SEEN Ur Squamous Epith Cells 5-10 SEEN Urine Bacteria 0 SEEN Urine Mucus 0 SEEN Radiography Diagnostic Testing: Clinical Impression(s) from Imaging Studies Abdomen/Pelvis CT 02/17/22 16:27 IMPRESSION: Moderate distention of the large and small bowel extending to the sigmoid colon at which site there is moderate stool. Rule out impaction. Findings could represent small enlarged bowel obstruction or moderate ileus. Status post cholecystectomy. Mild intrahepatic biliary ductal dilatation with dilated common duct to 1.12 cm and borderline dilatation of pancreatic duct. While these findings could be related to cholecystectomy and age, respectively findings are of concern for double duct sign. Rule out occult mass of the distal common duct or pancreatic head versus distal common duct stricture versus occult impacted a recently passed calculus. Atrophic uterus versus hysterectomy. Degenerative changes of the lumbar spine detailed above. Electronically Signed: Ankur Ferrara MD, JIGNESH at 17:26 EDT , Abdomen Ultrasound 02/17/22 17:37 IMPRESSION: Limited study due to overlying bowel gas. Patient status post cholecystectomy. Electronically Signed: Deejay Pittman MD at 19:21 EDT , Discharge Plan Triage Chief Complaint: Abd Pain ED Provider: Alejandro Harmon Dx/Rx/DC Orders Instructions: ED Abdominal Pain Unkn Cause Fem Prescriptions: New oxycodone-acetaminophen [Percocet] 5-325 mg tablet 1 tab PO Q6H PRN (Reason: pain) 3 Days Qty: 12 RF: 0 No Action levothyroxine 88 MCG tablet 25 mcg PO DAILY RF: 0 citalopram 20 MG tablet 20 mg PO DAILY RF: 0 loratadine 10 MG tablet 10 mg PO DAILY RF: 0 diazepam 5 MG tablet 5 mg PO BID RF: 0 ergocalciferol (vitamin D2) 50,000 UNIT capsule 50,000 unit PO QMONTH RF: 0 simethicone 80 MG tablet,chewable 160 mg PO TID RF: 0 omeprazole 20 MG capsule 20 mg PO DAILY RF: 0 acetaminophen 500 mg Tablet 500 mg PO TID RF: 0 Primary Care Provider: Keysha Klein Referrals: Keysha Klein MD [Primary Care Provider] - Activity Restrictions/Additional Instructions: On your CAT scan today it showed that there were some dilated ducts associated with your liver. I did discuss this with the surgeon and this appears to be chronic. Ultrasound did not show anything acute. I spoke to your medical power of assistant attorney general who recommended that we try to treat your pain at home and reevaluate you in a couple of days. Disposition Disposition: Home, Self Care
[2022-02-17 16:41] LABS: Absolute Neutrophil Count 3.5 X10^3/uL (2.0-7.7); Basophil# 0.06 X10^3/uL; Basophil% 0.9 % (0-1); Eosinophils% 3.1 % (0-5); Hematocrit 42.5 % (37-47); Hemoglobin 13.4 g/dL (12.0-15.0); Lymphocyte % 29.1 % (19-41); Mean Corp Hgb Conc 31.5 g/dL (32-36); Mean Corpuscular Hgb 28.5 pg (27.0-32.0); Mean Corpuscular Volume 90.2 fL (81-99); Mean Platelet Vol. 10.5 fl (6.2-12.0); Monocyte# 0.85 X10^3/uL; NRBC Flagged by Analyzer 0 % (0-5); Neutrophil # 3.52 X10^3/uL (2.7-7.7); Neutrophil % 53.7 % (47-70); Platelet Count 294 K/mm3 (150-450); RBC Distribution Width CV 13.8 % (11.6-14.6); RBC Distribution Width SD 46.2 fl (35.1-43.9); Red Blood Count 4.71 M/mm3 (4.2-5.4); White Blood Count 6.5 K/mm3 (4.4-11.0)
[2022-02-17] MEDS: Ondansetron 4 MG/2 ML Vial IV (16:41)
[2022-02-17] MEDS: Morphine 4 MG/ML Syringe IV ×2 (16:41→20:21)
[2022-02-17] MEDS: 0.9% Normal Saline 1,000 ML 1000 ML IV (16:41)
[2022-02-17 16:56] LABS: ALB/GLOB Ratio 1.1 RATIO (0.9-2.4); AST(SGOT) 17 U/L (15-37); Alanine Aminotransfer ALT/SGPT 23 U/L (13-56); Albumin, Serum 3.6 g/dL (3.2-5.0); Alkaline Phosphatase 128 U/L (45-117); Anion Gap 4 (5-15); BUN 16 mg/dL (7-18); BUN/Creat Ratio 20.1 RATIO (10-20); Calcium,Total 9.9 mg/dL (8.5-10.1); Chloride 105 mmol/L (98-107); EST Glomerular Filtration Rate 75 mL/min (>60); Est Glom Filt Rate - Afr Amer 90 mL/min (>60); Estimated Creatinine Clearance 48.06 ml/min; Globulin 3.4 g/dL (2.2-4.2); Glucose 110 mg/dL (74-106); Lipase 123 U/L (73-393); Potassium 4.5 mmol/L (3.5-5.1); Sodium Level 142 mmol/L (136-145)
[2022-02-17 17:10] VITALS: BP 112/78; PULSE 99; RESP 16; TEMP 36.7; O2SAT 96
[2022-02-17 17:26] LABS: Bacteria 0 SEEN /hpf (None Seen); Mucous, Urine 0 SEEN /hpf (<or=2+)
--- NOTE | 2022-02-17 17:37 | US_ITS ---
EXAM: US ABDOMEN LIMITED, RIGHT UPPER QUADRANT CLINICAL INDICATION: RUQ pain TECHNIQUE: Real-time ultrasound of the right upper quadrant with image documentation. This report was created using ShotClip report A2B technology. COMPARISON: None. FINDINGS: LIVER: The liver measures 14.3 cm. There is normal echotexture. No intrahepatic biliary ductal dilation. GALLBLADDER: Patient is status post cholecystectomy. COMMON BILE DUCT: Common bile duct is at the upper limits of normal in size measuring 7 mm. The proximal common bile duct is within normal limits for the patient''s age. PANCREAS: Pancreas is obscured by overlying bowel gas. RIGHT KIDNEY: The right kidney measures 6.3 x 3.4 x 4.1 cm. Decreased size of the kidney which may be due to chronic renal disease. There is no hydronephrosis. No shadowing calculus. No focal lesion or perinephric collection is demonstrated. US/Abdomen Limited IMPRESSION: Limited study due to overlying bowel gas. Patient status post cholecystectomy. Electronically Signed: Deejay Pittman MD at 19:21 EDT ,
[2022-02-17 17:44] LABS: Color, Urine Yellow (Yellow); Glucose, Dipstick Normal (Normal); Ketone-Dipstick Negative (Negative); Leukocyte Esterase-Dipstick 100 /ul (Negative); Nitrite-Dipstick Negative (Negative); Occult Blood-Urine 10 /ul (Negative); Protein-Dipstick 15 mg/dl (Negative); Urine Bilirubin Dipstick Negative (Negative); Urine Clarity Clear (Clear); Urine Urobilinogen Normal (Normal)
[2022-02-17 18:04] LABS: Red Blood Cells-Urine 0-5 SEEN /hpf (0-5); Squamous Epithelial Cells - UA 5-10 SEEN /hpf (5-10); White Blood Cells 5-10 SEEN /hpf (0-5)
[2022-02-17 19:40] VITALS: BP 122/79; PULSE 104; RESP 22; TEMP 37.2; O2SAT 92
[2022-02-17 21:11] VITALS: BP 111/70; PULSE 99; RESP 15; O2SAT 93
== END 2022-02-17 21:12 | disposition home or self-care (01) ==
PROVIDERS: Emergency Provider Student in an Organized Health Care Education/Training Program; PCP Family Medicine; Visit Provider Student in an Organized Health Care Education/Training Program
DX: R10.9 Unspecified abdominal pain (principal); R19.7 Diarrhea, unspecified; K21.9 Gastro-esophageal reflux disease without esophagitis; E03.9 Hypothyroidism, unspecified; F32.A Depression, unspecified; Z66 Do not resuscitate; Z79.890 Hormone replacement therapy; Z79.899 Other long term (current) drug therapy
CPT/HCPCS: 74177; 76705; 80053; 81001; 83690; 85025; 96361; 96374; 96375; 96376; 99283; J7030; Q9967; A4216; J2405

== ENCOUNTER 2022-08-13 13:17 | Emergency (ER) | payer MEDICARE, MEDICAID, SELFPAY ==
[2022-08-13 13:24] VITALS: BP 108/71; PULSE 112; RESP 20; TEMP 37.1; O2SAT 86; BMI 14.6
[2022-08-13 13:30] VITALS: BP 108/71; PULSE 109; RESP 20; TEMP 37.1; O2SAT 86
[2022-08-13 13:41] VITALS: O2SAT 92
[2022-08-13 13:42] VITALS: O2SAT 92
--- NOTE | 2022-08-13 13:58 | EX.ED.DYSGE1 ---
HPI History of Present Illness Chief Complaint: Shortness of Breath Informant: EMS Narrative Narrative: Patient unable to provide much history as she has history of cerebral palsy. Patient brought in from her care home after she aspirated on thickened liquids at lunch today. She is a coarse sounding cough. She was noted to be 86% on room air. At the time of my exam she is on 2 L nasal cannula and satting in the low to mid 90s. [facility] Medical History Abdominal pain Acid reflux Anxiety Blood in stool Cerebral palsy with spastic/ataxic diplegia Constipation Depression Diarrhea Dysphagia Hard of hearing Hypothyroid Left hip pain Nausea Onychomycosis Severe mental handicap SOB (shortness of breath) Thyroid disease Home Medications citalopram 20 mg tablet 20 mg PO DAILY 01/06/14 [History Last Taken Unknown] diazepam 5 mg tablet 5 mg PO BID 01/06/14 [History Last Taken Unknown] levothyroxine 88 mcg tablet 25 mcg PO DAILY 01/06/14 [History Last Taken Unknown] loratadine 10 mg tablet 10 mg PO DAILY 01/06/14 [History Last Taken Unknown] ergocalciferol (vitamin D2) 1,250 mcg (50,000 unit) capsule 50,000 unit PO QMONTH 11/27/18 [History Last Taken Unknown] omeprazole 20 mg capsule,delayed release 20 mg PO DAILY 09/14/20 [History Last Taken Unknown] amoxicillin 400 mg-potassium clavulanate 57 mg/5 mL oral suspension 10 ml PO BID 7 days #140 mL 08/13/22 [Rx Last Taken Unknown] aspirin 81 mg chewable tablet 81 mg PO DAILY 08/13/22 [History Last Taken Unknown] clindamycin HCl 150 mg capsule 150 mg PO Q6H #42 caps 08/13/22 [Rx Last Taken Unknown] meloxicam 7.5 mg tablet 7.5 mg PO DAILY 08/13/22 [History Last Taken Unknown] propranolol 10 mg tablet 10 mg PO BID 08/13/22 [History Last Taken Unknown] Allergy/AdvReac Type Severity Reaction Status Date / Time No Known Allergies Allergy Verified 08/13/22 13:39 Surgical History Hx of tooth extraction Social History Smoking Status: Never smoker second hand exposure: No alcohol intake: never substance use type: does not use caffeine: No frequency: does not exercise ROS ROS ED Review of Systems ROS Unobtainable: due to mental condition EXAM Physical Exam Narrative Exam Narrative: Patient sitting upright in bed, alert. Unable to answer questions given baseline cerebral palsy. Const Vital Signs: 08/13/22 13:24 08/13/22 13:30 08/13/22 13:41 Temperature 98.8 F 98.8 F Temperature Source Temporal Temporal Pulse Rate 112 H 109 H Respiratory Rate 20 H 20 H Respiratory Effort Normal Non-Labored Respiratory Depth Normal Respiratory Pattern Normal Blood Pressure 108/71 108/71 Blood Pressure Mean 83 83 Pulse Ox 86 86 Oxygen Delivery Method Room Air Room Air Oxygen Flow Rate (L/min) 08/13/22 13:42 08/13/22 13:41 08/13/22 14:35 Temperature 99.9 F H Temperature Source Temporal Pulse Rate 103 H Respiratory Rate 18 Respiratory Effort Respiratory Depth Respiratory Pattern Blood Pressure 120/79 Blood Pressure Mean 92 Pulse Ox 92 92 92 Oxygen Delivery Method Nasal Cannula Nasal Cannula Nasal Cannula Oxygen Flow Rate (L/min) 3 2 3 Positive well nourished and well developed General Appearance ED: well developed HEENT Reports moist mucous membranes Eyes EOMs intact bilaterally Neck no lymphadenopathy Chest Wall inspection of chest normal and palpation of chest normal Resp normal respiratory effort Resp Narrative: Diminished breath sounds bilateral bases. Cardio regular rhythm Rate: tachycardic GI non-tender Palpation: soft Extremity normal to inspection Neuro Neuro Narrative: Moves all 4 extremities. Sensorium / Orientation: alert Skin no rashes or lesions noted MDM MDM MDM Narrative Medical decision making narrative: Patient placed on compliance monitor. Lab work and chest x-ray obtained. Blood cultures ordered. Patient given a dose of Unasyn. Lab Data Attestation: I reviewed the patient's lab results. Labs: Laboratory Results - last 24 hr 08/13/22 08/13/22 14:10 14:10 WBC 22.5 H RBC 4.53 Hgb 13.2 Hct 40.7 MCV 89.8 MCH 29.1 MCHC 32.4 RDW Std Deviation 45.1 H RDW Coeff of Timmy 13.7 Plt Count 275 MPV 10.5 Immature Gran % (Auto) 0.400 Neut % (Auto) 85.4 H Lymph % (Auto) 5.8 L [place] % (Auto) 8.0 Eos % (Auto) 0.2 Baso % (Auto) 0.2 Absolute Neuts (auto) 19.2 H Absolute Lymphs (auto) 1.31 Nucleated RBC % 0 Differential Comment SCANNED Diff Path Review May foll Sodium 143 Potassium 3.9 Chloride 107 Carbon Dioxide 34.0 H Anion Gap 2 L BUN 25 H Creatinine 0.64 Estim Creat Clear Calc 27.35 Est GFR (MDRD) Af Amer 115 Est GFR (MDRD) Non-Af 95 BUN/Creatinine Ratio 38.8 H Glucose 123 H Calcium 9.6 Radiography Chest X-Ray - ED: 1 View, Read by ED Physician and - (Bilateral perihilar fullness.) Diagnostic Testing: Clinical Impression(s) from Imaging Studies Chest X-Ray 08/13/22 14:40 IMPRESSION: There is bilateral infiltrate. Electronically Signed: Peter Mccormack MD at 15:09 EST , Treatment and Re-Evaluation Narrative: Patient's O2 saturations have been stable on 3 L nasal cannula. Lab work revealed significant leukocytosis with a white count of 22.5. Left shift is noted. Chemistry studies unremarkable. X-ray per my interpretation reveals perihilar fullness bilaterally with overlying bowel of the left lower lung. Radiology interpretation reviewed and feels there are bilateral infiltrates present. Social work called the patient's care home to see if they were able to care for her with oxygen if it can be arranged. They advised us that she is actually on hospice care and is already on oxygen at 2 L. A phone call was made to hospice and they will send a nurse over to evaluate the patient to determine appropriate placement and further treatment. Hospice called back. They state the patient already has an order for 2 to 5 L of oxygen as needed. They feel the patient can be discharged back to her facility and they will be following up. To cover her pneumonia as an outpatient I will write her for clindamycin and Augmentin as her pneumonia is primarily from aspiration source. Discharge Plan Triage Chief Complaint: Shortness of Breath ED Provider: Jessika Conti Dx/Rx/DC Orders Clinical Impression: Pneumonia Instructions: ED Pneumonia (Adult) Prescriptions: New clindamycin HCl 150 mg capsule 150 mg PO Q6H Qty: 42 0RF amoxicillin-pot clavulanate 400-57 mg/5 mL suspension for reconstitution 10 ml PO BID 7 Days Qty: 140 0RF No Action levothyroxine 88 MCG tablet 25 mcg PO DAILY Label Comments: THYROID MEDICATION citalopram 20 MG tablet 20 mg PO DAILY Label Comments: ANTI-DEPRESSANT loratadine 10 MG tablet 10 mg PO DAILY Label Comments: ANTI-HISTAMINE diazepam 5 MG tablet 5 mg PO BID Label Comments: ANTI-ANXIETY ergocalciferol (vitamin D2) 50,000 UNIT capsule 50,000 unit PO QMONTH omeprazole 20 MG capsule 20 mg PO DAILY meloxicam 7.5 mg Tablet 7.5 mg PO DAILY propranolol 10 mg tablet 10 mg PO BID aspirin 81 mg tablet,chewable 81 mg PO DAILY Label Comments: CHEW AND SWALLOW (1) TAB-HLET DAILY. Primary Care Provider: Keysha Klein Referrals: Keysha Klein MD [Primary Care Provider] - Activity Restrictions/Additional Instructions: Hospice is aware of your diagnosis and will be following up with you. Disposition Disposition: Home, Self Care
[2022-08-13 14:17] LABS: Absolute Lymphocyte Count 1.31 X10^3/uL (0.83-4.51); Absolute Neutrophil Count 19.2 X10^3/uL (2.0-7.7); Basophil# 0.05 X10^3/uL; Basophil% 0.2 % (0-1); Eosinophil# 0.04 X10^3/uL; Eosinophils% 0.2 % (0-5); Hematocrit 40.7 % (37-47); Hemoglobin 13.2 g/dL (12.0-15.0); Lymphocyte # 1.31 X10^3/ul (0.83-4.51); Lymphocyte % 5.8 % (19-41); Mean Corp Hgb Conc 32.4 g/dL (32-36); Mean Corpuscular Hgb 29.1 pg (27.0-32.0); Mean Corpuscular Volume 89.8 fL (81-99); Mean Platelet Vol. 10.5 fl (6.2-12.0); NRBC Flagged by Analyzer 0 % (0-5); Neutrophil # 19.17 X10^3/uL (2.7-7.7); Neutrophil % 85.4 % (47-70); POSITIVE DIFFERENTIAL YES; Platelet Count 275 K/mm3 (150-450); RBC Distribution Width CV 13.7 % (11.6-14.6); RBC Distribution Width SD 45.1 fl (35.1-43.9); Red Blood Count 4.53 M/mm3 (4.2-5.4); White Blood Count 22.5 K/mm3 (4.4-11.0)
[2022-08-13 14:20] LABS: Differential Indicated SCAN CRITERIA MET
[2022-08-13 14:29] LABS: Anion Gap 2 (5-15); BUN 25 mg/dL (7-18); BUN/Creat Ratio 38.8 RATIO (10-20); Calcium,Total 9.6 mg/dL (8.5-10.1); Chloride 107 mmol/L (98-107); Creatinine, Serum 0.64 mg/dL (0.55-1.02); EST Glomerular Filtration Rate 95 mL/min (>60); Est Glom Filt Rate - Afr Amer 115 mL/min (>60); Estimated Creatinine Clearance 27.35 ml/min; Glucose 123 mg/dL (74-106); Potassium 3.9 mmol/L (3.5-5.1); Sodium Level 143 mmol/L (136-145)
[2022-08-13 14:35] VITALS: BP 120/79; PULSE 103; RESP 18; TEMP 37.7; O2SAT 92
--- NOTE | 2022-08-13 14:40 | RAD_ITS ---
STUDY: X-RAY CHEST REASON FOR EXAM: Female, 77 years old. sob TECHNIQUE: XR Chest 1 View COMPARISON: 11.16.20 FINDINGS: There is atherosclerotic calcification of the aortic arch with tortuosity. There are diffuse degenerative changes of the visualized thoracic spine. There is degenerative osteoarthritis of the bilateral shoulders. There is no demonstrated pleural abnormality. There is bilateral infiltrate. Normal size heart. Normal mediastinum and ester. Normal visualized pulmonary arteries. There is no demonstrated abnormality of the visualized soft tissue structures of the upper abdomen. RAD/Chest 1 View (Portable) IMPRESSION: There is bilateral infiltrate. Electronically Signed: Peter Mccormack MD at 15:09 EST ,
[2022-08-13 14:55] LABS: Differential Comment SCANNED
--- NOTE | 2022-08-13 15:53 | CM.ED ---
CHARAN Note Referral Source: MD Referral Reason: Discharge Planning MD advised that patient is now on 3L of oxygen and MD inquired if patient can return to the nursing home with the oxygen and someone to watch her with the oxygen on as she was moving with the current oxygen on. Patient called Sheeba at [facility] and she told this ad copy writer to call Yee at [phone]. Yee said that patient is frail and has hospice. Patient, per Yee, has been weak and struggling to swallow even with crushed pills this morning. Yee said that patient has a tank at the house. CHARAN asked if there will be issue with patient returning with the oxygen and Yee said that it will not be a problem as there is staff available 15/04. Yee said that patient's medication is prescribed by [facility]. Patient was at the workshop when she had to come to the ED today. Yee said that patient is very weak and frail and is on 2L at home. CHARAN spoke to Lisette at [facility]. Lisette said that patient is from a nursing home and at baseline has issues with aspiration, coughing and short of breath. Patient has been recently diagnosed with covid (diagnosed on 08/03). Lisette said that patient or family does not want a feeding tub only comfort care. Lisette said that patient is difficult to understand. Lisette said that patient has Oxygen tank, nebulizer, concentrator and etank at the home. Lisette said that there is no need for MD order for 3 L of oxygen as the standing order is for 2-5 L. Lisette said that she feels it is appropriate for patient to return back to the nursing home and she will have their staff check in on patient tonight. CHARAN noted that [facility] staff was in the room. CHARAN spoke to Yee at [facility] and stated that patient has 2L oxygen tank but is now on 3L and Yee said that staff can come to the house and get tank and then if RN can show staff how to adjust to 3 L it should be fine. Yee said that she will have [facility] staff get the tank and bring it to the ED. CHARAN updated RN and MD regarding plan for discharge. Plan: Return to [facility] with oxygen tank 3L of oxygen and antibiotic script for patient. Lela NOLAND
[2022-08-13 16:19] VITALS: BP 126/72; PULSE 107; RESP 20; O2SAT 96
--- NOTE | 2022-08-13 16:45 | ED.RN ---
[facility] resp therapy educated on.
--- NOTE | 2022-08-13 17:55 | CM.ED ---
Ange, greenhouse staff, advised that [facility] Staff said that they would just take patient home without oxygen and that they needed order for 3L of oxygen. CHARAN met with [facility] staff and advised that hospice has standing orders for 2-5L of oxygen and thus no NEW order is needed. SW encouraged [facility] staff to get patient's home oxygen to ensure that she can safety discharge from the ED. Staff agreed. Plan: Home with hospice Lela NOLAND
[2022-08-15 09:32] LABS: Pathologist Review Reviewed
== END 2022-08-13 16:46 | disposition home or self-care (01) ==
PROVIDERS: Emergency Provider Emergency Medicine; PCP Family Medicine; Visit Provider Emergency Medicine
DX: J69.0 Pneumonitis due to inhalation of food and vomit (principal); G80.1 Spastic diplegic cerebral palsy
CPT/HCPCS: 36415; 71045; 80048; 85025; 87040; 96365; 96366; 99285; J7050; J0295